=== PATIENT | female | born 1940 ===

== ENCOUNTER 2016-10-15 21:05 | Emergency (ER) | payer MEDICARE, OTHER ==
[2016-10-15 21:16] VITALS: BMI 24.0
[2016-10-15 21:19] VITALS: TEMP 97.8
[2016-10-15] MEDS ORDERED: Sodium Chloride 0.9% 1,000 ML IV STA (21:19)
[2016-10-15] MEDS ORDERED: diaZEpam 10 mg/2 ml Inj IVP ONE (21:20)
[2016-10-15] MEDS ORDERED: diaZEpam 10 mg/2 ml Inj ONE (21:39)
--- NOTE | 2016-10-15 22:02 | CT ---
EXAM: CT Head Without Intravenous Contrast. CLINICAL HISTORY: 76 years old, female; Pain; Headache; Other: AMS n /v blurred vision; Patient HX: [place]'s AMS n /v blurred vision TECHNIQUE: Axial computed tomography images of the head/brain without intravenous contrast. This CT exam was performed using one or more of the following dose reduction techniques: automated exposure control, adjustment of the mA and/or kV according to patient size, and/or use of iterative reconstruction technique. COMPARISON: CT - HEAD W/O CONTRAST 05/20/2015 12:40:49 PM FINDINGS: Limitations: Suboptimal positioning. Brain: [id number] atrophy. No intracranial hemorrhage. No mass. Few scattered foci of decreased attenuation within periventricular/subcortical white matter. Chronic lacunar infarct within LEFT basal ganglia, cerebellum. No definite edema. Ventricles: No hydrocephalus. Bones/joints: No acute fracture. Soft tissues: Unremarkable. Vasculature: Atherosclerotic disease of intracranial arteries. Sinuses: Scattered minimal mucosal thickening of ethmoid sinuses. Mastoid air cells: No mastoid effusion. Orbits: Unremarkable as visualized. IMPRESSION: 1. Nonspecific white matter changes. Acute infarction may be CT occult within first 24 hours. If a focal deficit persists, consider followup CT or MRI for further evaluation. 2. Incidental/non-acute findings are described above.
--- NOTE | 2016-10-15 22:15 | ED PDOC ---
HPI: Headache Time Seen by Provider: 10/15/16 21:06 Chief Complaint (Nursing): Weakness/Neurological Deficit Chief Complaint (Provider): headache History Per: Patient History/Exam Limitations: no limitations Onset/Duration Of Symptoms: Hrs (7x prior to arrival) Current Symptoms Are (Timing): Still Present Severity: Moderate Associated Symptoms: Nausea, Vomiting (1x), Other (visual disturbance) Additional Complaint(s): 76 year old female with a pertinent medical history of hypertension, hyperthyroidism, TIAs, and chronic back pain presents to the ED with complaints of right sided headache with associated symptoms of neck pain, dizziness, nausea , and vomiting 1x that started 7x hours ago. She reports that her symptoms partially resolved an hour after they started, but began to escalate an hour prior to arrival. She reports having a history of similar episodes, the last time being 1x month ago (provoked by back pain) where she got an extensive workup in the ED. She denies having shortness of breath, chest pain, and a fever. PMD: Davis Rodarte MD Past Medical History Reviewed: Historical Data, Nursing Documentation, Vital Signs Vital Signs: Last Vital Signs Temp 97.8 F 10/15/16 21:14 Pulse 80 10/15/16 21:14 Resp 16 10/15/16 21:14 BP 174/76 H 10/15/16 21:14 Pulse Ox 100 10/15/16 21:14 - Medical History PMH: Back Problems, Bronchitis, HTN, Hypercholesterolemia, Hypothyroidism, TIA Denies: HIV, Chronic Kidney Disease - Surgical History Surgical History: Appendectomy - Family History Family History: States: Unknown Family Hx - Social History Alcohol: None Drugs: Denies - Immunization History Hx Tetanus Toxoid Vaccination: No Hx Influenza Vaccination: No - Home Medications Home Medications: Ambulatory Orders Medication Instructions Recorded Levothyroxine Sodium [Synthroid] 0.075 mg PO DAILY 05/25/14 Losartan [Cozaar] 50 mg PO DAILY 05/25/14 Promethazine Hydrochloride 10 ml PO Q6H PRN 05/20/15 [Phenergan] Cyclobenzaprine [Cyclobenzaprine 10 mg PO HS PRN #5 tab 09/21/16 HCl] Naproxen [Naprosyn Tab] 375 mg PO Q12 PRN #14 tab 09/21/16 Ondansetron ODT [Zofran ODT] 4 mg PO Q6 PRN #16 odt 10/16/16 - Allergies Allergies/Adverse Reactions: Allergies Allergy/AdvReac Type Severity Reaction Status Date / Time codeine Allergy DIZZINESS Verified 09/21/16 19:36 fentanyl Allergy DIZZINESS Verified 09/21/16 19:36 morphine Allergy DIZZINESS Verified 09/21/16 19:36 moxifloxacin HCl Allergy RASH Verified 09/21/16 19:36 [From Avelox] shellfish derived Allergy ANAPHYLAXIS Verified 09/21/16 19:36 tramadol HCl [From Ultram] Allergy DIZZINESS Verified 09/21/16 19:36 Review of Systems ROS Statement: Except As Marked, All Systems Reviewed And Found Negative Constitutional: Negative for: Fever Eyes: Positive for: Vision Change (visual disturbance) Cardiovascular: Negative for: Chest Pain Respiratory: Negative for: Shortness of Breath Gastrointestinal: Positive for: Nausea, Vomiting Musculoskeletal: Positive for: Neck Pain Neurological: Positive for: Headache (right side), Dizziness Physical Exam - Reviewed Nursing Documentation Reviewed: Yes Vital Signs Reviewed: Yes - Physical Exam Appears: Positive for: Well, Non-toxic, Uncomfortable Head Exam: Positive for: ATRAUMATIC, NORMOCEPHALIC Skin: Positive for: Normal Color, Warm, Dry Neck: Positive for: Normal, Painless ROM Cardiovascular/Chest: Positive for: Regular Rate, Rhythm, Chest Non Tender Respiratory: Positive for: Normal Breath Sounds. Negative for: Respiratory Distress Extremity: Positive for: Normal ROM Neurologic/Psych: Positive for: Alert, Oriented (3x). Negative for: Motor/ Sensory Deficits - Laboratory Results Result Diagrams: 10/15/16 22:01 10/15/16 22:01 - ECG O2 Sat by Pulse Oximetry: 100 (RA) Pulse Ox Interpretation: Normal Medical Decision Making Medical Decision Makin:06 Initial impression: 76 year old female has an acute headache with neck pain, nausea, and vomiting. Initial plan: * CT head w/o contrast * EKG * Xray portable chest * CMP * troponin I * udip * CBC * PTT * prothrombin time * sodium chloride 1,000ml IV 100mls/hr * Reglan 10mg IVPB * Toradol 10mg IV * Valium 5mg IVP * accucheck * urinalysis * reevaluation Labs reviewed show no clinically significant abnormalities CT Head NAD Patient reports complated resolution of her symptoms and is stable for dc home Dx Tension Headache/Migraine RX Zofran, FU PCP 2 days Return advised for any worsening. Scribe Attestation: Documented by Carmen Jim, acting as a scribe for Akash Fernandez MD. Provider Scribe Attestation: All medical record entries made by the Scribe were at my direction and personally dictated by me. I have reviewed the chart and agree that the record accurately reflects my personal performance of the history, physical exam, medical decision making, and the department course for this patient. I have also personally directed, reviewed, and agree with the discharge instructions and disposition. Disposition - Clinical Impression Clinical Impression: Tension headache - Patient ED Disposition Is Patient to be Admitted: No Counseled Patient/Family Regarding: Studies Performed, Diagnosis, Need For Followup, Rx Given - Disposition Disposition: Routine/Home Disposition Time: 01:00 Condition: STABLE Prescriptions: Ondansetron ODT [Zofran ODT] 4 mg PO Q6 PRN #16 odt PRN Reason: Nausea/Vomiting Instructions: Tension Headache (ED) Print Language: YORUBA
[2016-10-15 22:30] LABS: BASO % 0.5 % (0.0-2.0); EOS % 0.6 % (0.0-4.0); HEMATOCRIT 36.8 % (34.0-47.0); LYMPH # 1.5 K/uL (1.0-4.3); LYMPH % 20.1 % (20.0-40.0); MEAN CELL VOLUME 83.5 fl (81.0-99.0); MEAN CORPUSCULAR HEMOGLOBIN 28.2 pg (27.0-31.0); MEAN CORPUSCULAR HGB CONC 33.8 g/dL (33.0-37.0); MEAN PLATELET VOLUME 8.3 fl (7.2-11.7); MONO # 0.6 K/uL (0.0-0.8); MONO % 7.8 % (0.0-10.0); NEUT # 5.3 K/uL (1.8-7.0); RED CELL DISTRIBUTION WIDTH 14.2 % (11.5-14.5); WHITE BLOOD COUNT 7.5 K/uL (4.8-10.8)
[2016-10-15 22:42] LABS: ALB/GLOB RATIO 1.3 (1.0-2.1); ALKALINE PHOSPHATASE 97 U/L (38-126); ALT/SGPT 47 U/L (9-52); AST/SGOT 51 U/L (14-36); BILIRUBIN,TOTAL 0.6 mg/dl (0.2-1.3); BLOOD UREA NITROGEN 17 mg/dl (7-17); CALCIUM 9.6 mg/dL (8.4-10.2); CARBON DIOXIDE 23 mmol/L (22-30); CHLORIDE 95 mmol/L (98-107); GFR AFRICAN-AMERICAN > 60; GLUCOSE,RANDOM 138 mg/dL (65-105); POTASSIUM 3.5 MMOL/L (3.6-5.0); SODIUM 130 mmol/l (132-148); TOTAL PROTEIN 7.7 G/DL (6.3-8.2)
[2016-10-15 23:51] LABS: PARTIAL THROMBOPLASTIN TIME 25.2 SECONDS (23.3-32.5)
[2016-10-16 02:13] VITALS: BP 133/73; PULSE 73; RESP 20
[2016-10-16 02:56] LABS: RBC URINE 1 /hpf (0-3); URINE BACTERIA RARE (<OCC); URINE BILIRUBIN NEGATIVE (NEGATIVE); URINE BLOOD NEGATIVE (NEGATIVE); URINE COLOR YELLOW (YELLOW); URINE GLUCOSE (UA) NEG (Normal); URINE KETONE NEGATIVE (NEGATIVE); URINE LEUKOCYTE ESTERASE NEG Leu/uL (Negative); URINE PROTEIN NEGATIVE (NEGATIVE); URINE UROBILINOGEN 0.2-1.0 mg/dL (0.2-1.0); WBC URINE 1 /hpf (0-5)
--- NOTE | 2016-10-16 08:17 | RAD ---
HISTORY: admit COMPARISON: No prior. FINDINGS: LUNGS: No active pulmonary disease. PLEURA: No significant pleural effusion identified, no pneumothorax apparent. CARDIOVASCULAR: Normal. OSSEOUS STRUCTURES: No significant abnormalities. VISUALIZED UPPER ABDOMEN: Normal. OTHER FINDINGS: None. IMPRESSION: Unremarkable one view exam of the chest.
[2016-10-17 02:18] VITALS: O2SAT 100
--- NOTE | 2016-10-17 09:42 | CARD ---
APPROVED REPORT EKG Measurement Heart [id number] <Conclusion> Normal sinus rhythm Possible Left atrial enlargement Borderline ECG
== END 2016-10-16 02:43 | disposition home or self-care (01) ==
LOC: H.ER 21:05
DX: G44.209 Tension-type headache, unspecified, not intractable (principal); I10 Essential (primary) hypertension; Z86.73 Personal history of transient ischemic attack (TIA), and cerebral infarction without residual deficits
CPT/HCPCS: 70450; 71010; 80053; 81003; 82948; 84484; 85025; 85610; 85730; 93005; 96361; 96374; 96375; 99285; J1885; J2765; J3360; J7040

== ENCOUNTER 2017-07-12 18:16 | Inpatient (IN) | payer MEDICARE, OTHER ==
[2017-07-12 18:16] VITALS: BMI 24.0
--- NOTE | 2017-07-12 19:00 | CT ---
PROCEDURE: CT HEAD WITHOUT CONTRAST. HISTORY: code stroke COMPARISON: 10/15/2016. TECHNIQUE: Axial computed tomography images were obtained through the head/brain without intravenous contrast. Coronal and sagittal reconstructed images. Radiation dose: Total exam DLP = 975.72 mGy-cm. This CT exam was performed using one or more of the following dose reduction techniques: Automated exposure control, adjustment of the mA and/or kV according to patient size, and/or use of iterative reconstruction technique. FINDINGS: HEMORRHAGE: No intracranial hemorrhage. BRAIN: No mass effect or edema. No atrophy or chronic microvascular ischemic changes. VENTRICLES: Unremarkable. No hydrocephalus. CALVARIUM: Unremarkable. PARANASAL SINUSES: Unremarkable as visualized. No significant inflammatory changes. MASTOID AIR CELLS: Unremarkable as visualized. No inflammatory changes. OTHER FINDINGS: None. IMPRESSION: No acute intracranial abnormalities. No significant findings to account for the clinical presentation. No significant interval change compared to the prior examination(s). Code stroke protocol: Study completed 18:35 Radiologist notified 18:43 although the study was not available for interpretation until 18:49 Results conveyed verbally at 18:57 Interpretation finalized and available for review 18:59
[2017-07-12 19:13] LABS: BASO % 0.5 % (0.0-2.0); EOS # 0.1 K/uL (0.0-0.7); EOS % 0.7 % (0.0-4.0); HEMATOCRIT 37.7 % (34.0-47.0); LYMPH # 1.2 K/uL (1.0-4.3); LYMPH % 13.3 % (20.0-40.0); MEAN CELL VOLUME 84.9 fl (81.0-99.0); MEAN CORPUSCULAR HEMOGLOBIN 28.2 pg (27.0-31.0); MEAN CORPUSCULAR HGB CONC 33.2 g/dL (33.0-37.0); MEAN PLATELET VOLUME 8.6 fl (7.2-11.7); MONO # 0.4 K/uL (0.0-0.8); MONO % 4.8 % (0.0-10.0); NEUT # 7.4 K/uL (1.8-7.0); NEUT % 80.7 % (50.0-75.0); RED CELL DISTRIBUTION WIDTH 13.5 % (11.5-14.5); WHITE BLOOD COUNT 9.1 K/uL (4.8-10.8)
[2017-07-12] MEDS ORDERED: Sodium Chloride 0.9% 500 ML IV STA (19:35)
[2017-07-12 19:37] LABS: PARTIAL THROMBOPLASTIN TIME 30.1 Seconds (25.6-37.1)
[2017-07-12 19:39] LABS: ALB/GLOB RATIO 1.4 (1.0-2.1); ALCOHOL SERUM < 10 mg/dl (0-10); ALKALINE PHOSPHATASE 82 U/L (38-126); ALT/SGPT 52 U/L (9-52); AST/SGOT 45 U/L (14-36); BILIRUBIN,TOTAL 0.6 mg/dl (0.2-1.3); BLOOD UREA NITROGEN 19 mg/dl (7-17); CALCIUM 9.2 mg/dL (8.4-10.2); CARBON DIOXIDE 23 mmol/L (22-30); CHLORIDE 101 mmol/L (98-107); CHOLESTEROL 229 mg/dL (0-199); GFR AFRICAN-AMERICAN > 60; GLUCOSE,RANDOM 154 mg/dL (65-105); LIPASE 147 U/L (23-300); MAGNESIUM 2.1 MG/DL (1.6-2.3); PHOSPHOROUS 2.2 mg/dl (2.5-4.5); POTASSIUM 3.7 MMOL/L (3.6-5.0); SODIUM 138 mmol/l (132-148); TOTAL PROTEIN 7.6 G/DL (6.3-8.2)
[2017-07-12 19:39] LABS: VENOUS BLOOD GAS BASE EXCESS 4.5 mmol/L (0.0-2.0); VENOUS BLOOD GAS PCO2 28 mmHg (40-60); VENOUS BLOOD PH 7.57 (7.32-7.43)
[2017-07-12] MEDS ORDERED: Sodium Chloride 0.9% 1,000 ML IV STA (19:40)
[2017-07-12] MEDS ORDERED: Potassium & Sodium Phosphate PO STA (19:41)
--- NOTE | 2017-07-12 19:41 | ED PDOC ---
"HPI:STROKE - Time Time: 18:25 - Historian Historian: Family - Chief Complaint Chief Complaint: Weakness, Arm weakness, Leg weakness, Difficulty walking - Onset Onset: Hours (2pm) - Timing Timing: Currently Symptomatic - TPA Positive for Contraindication: No - Notes: Notes:: Pt is poor historian, reports that she is too weak. Daughter reports that when she arrived home today she found her mother in bed and unable to get up. Patient reports that her back hurts on the RIGHT side and that all her extremities are weak and numb. This may have started around 2pm but patient unable to give exact timing. She also reports that at about the same time, she had severe abdominal pain but unable to localize it. En route to ER on ambulance, pt had an episode of vomiting nonbilious nonbloody. h/o TIAs for which Dr Nunez has been evaluating patient. Episodes of blurry vision of RIGHT visual osborn, intermittent and lasts minutes, has been ongoing for months. Plan to undergo possible EEG July (Dr Nunez, who is available on phone, but not for inpatient consult, reports he plans for pt to have ambulatory EEG. Also advises that CTA can be performed if concern for CVA) PMD Dr Mario Crop Or Grain Farmworker Dr Oconnell NIHSS Stroke Scale - Date/Time Evaluation Performed Date Performed: 07/12/17 Time Performed: 18:20 When Was NIHSS Performed: Baseline - How Severe is the Stroke Level of Consciousness: 0=Alert LOC to Questions: 0=Both comments correct LOC to commands: 0=Obeys both correctly Best Gaze: 0=Normal Visual: 0=No visual loss Facial: 0=Normal Motor Arm - Left: 4=No movement Motor Arm - Right: 3=No effort against gravity (falls immediately) Motor Leg - Left: 3=No effort against gravity (falls immediately) Motor Leg - Right: 3=No effort against gravity (falls immediately) Limb Ataxia: 0=Absent Sensory: 0=Normal Best Language: 0=No aphasia Dysarthia: 0=Normal articulation Extinction & Inattention (Neglect): 0=Normal, no object Score: 13 rTPA Inclusion/Exclusion - Refusal of Treatment Patient Refused Treatment: No - Inclusion Criteria for Altepase Patient is 18 years or Older: Yes The Clinical Diagnosis of Ischemic Stroke That is Causing a Potentially Disabling Neurological Deficit: Yes Time of Onset is Well Established to be Less Than 270 Minute Before Treatment Would Begin: No Risk/Benefit Discussed With Patient/Family Member Present: No - Exclusion Criteria for Altepase Uncontrolled Hypertension at Time of Treatment (Systolic BP above 185 or Diastolic BP above 110 mmHg): No - Warning to TPA With Conditions Condition: Age Greater Than 75 years Past Medical History Reviewed: Historical Data, Nursing Documentation, Vital Signs Vital Signs: Last Vital Signs Temp 95.0 F L 07/12/17 18:21 Pulse 78 07/12/17 18:21 Resp 16 07/12/17 18:21 BP 141/73 07/12/17 18:21 Pulse Ox 99 07/12/17 18:21 - Medical History PMH: Back Problems, Bronchitis, HTN, Hypercholesterolemia, Hypothyroidism, TIA Denies: HIV, Chronic Kidney Disease - Surgical History Surgical History: Appendectomy - Family History Family History: States: Unknown Family Hx - Social History Current smoker - smoking cessation education provided: No - Immunization History Hx Tetanus Toxoid Vaccination: No Hx Influenza Vaccination: No - Home Medications Home Medications: Ambulatory Orders Medication Instructions Recorded Aspirin [Ecotrin] 81 mg PO DAILY 07/12/17 Levothyroxine [Synthroid] 75 mcg PO DAILY 07/12/17 Metoprolol Succinate [Toprol XL] 25 mg PO QPM 07/12/17 Zolpidem [Ambien] 10 mg PO HS PRN 07/12/17 cycloSPORINE [Restasis] 1 drop EACHEYE Q12H 07/12/17 Acetaminophen [Tylenol 325mg tab] 650 mg PO Q6 PRN tab 07/15/17 Aspirin [Ecotrin] 81 mg PO DAILY tabec 07/15/17 cycloSPORINE [Restasis] 1 drop EACHEYE Q12H 07/15/17 - Allergies Allergies/Adverse Reactions: Allergies Allergy/AdvReac Type Severity Reaction Status Date / Time codeine Allergy DIZZINESS Verified 07/15/17 17:36 fentanyl Allergy DIZZINESS Verified 07/15/17 15:00 morphine Allergy DIZZINESS Verified 07/15/17 15:00 moxifloxacin HCl Allergy RASH Verified 07/15/17 15:00 [From Avelox] shellfish derived Allergy ANAPHYLAXIS Verified 07/15/17 15:00 tramadol HCl [From Ultram] Allergy DIZZINESS Verified 07/15/17 15:00 Review of Systems ROS Statement: Except As Marked, All Systems Reviewed And Found Negative (and as per HPI) Constitutional: Positive for: Weakness, Malaise Gastrointestinal: Positive for: Nausea, Vomiting, Abdominal Pain Musculoskeletal: Positive for: Back Pain Neurological: Positive for: Weakness, Numbness Physical Exam - Reviewed Nursing Documentation Reviewed: Yes Vital Signs Reviewed: Yes - Physical Exam Appears: Positive for: In Acute Distress Head Exam: Positive for: ATRAUMATIC, NORMOCEPHALIC Skin: Positive for: Warm, Dry Eye Exam: Positive for: EOMI, PERRL ENT: Positive for: Other (dry mucus membranes) Neck: Positive for: Pain On Movement Of Neck (RIGHT paraspinal ttp, pt with preference to turn head LEFT, reports secondary to pain along RIGHT side) Cardiovascular/Chest: Positive for: Regular Rate, Rhythm, Chest Non Tender. Negative for: Murmur Respiratory: Positive for: Normal Breath Sounds. Negative for: Respiratory Distress Gastrointestinal/Abdominal: Positive for: Soft, Tenderness (diffuse mild). Negative for: Mass, Distended, Guarding, Rebound Back: Positive for: Other (RIGHT thoracic paraspinal ttp) Extremity: Negative for: Pedal Edema, Deformity, Swelling Lymphatic: Negative for: Adenopathy Neurologic/Psych: Positive for: Oriented (x3), Mood/Affect (anxious), Other (pt with 2/5 strength in all extremities) - Laboratory Results Result Diagrams: 07/13/17 04:40 07/13/17 04:30 - ECG O2 Sat by Pulse Oximetry: 99 Pulse Ox Interpretation: Normal - Progress ED Course And Treament: Accession No. : [id number] Patient Name / ID : OBDULIO BROWN / [id number] Exam Date : 07/12/2017 18:34:19 ( Approved ) Study Comment : Sex / Age : F / 76Y Creator : Jose F Dejesus MD Dictator : Jose F Dejesus MD Programmer Or Analyst : Piano Bench Assembler : Jose F Dejesus MD Approver2 : Report Date : 07/12/2017 18:58:22 My Comment : PROCEDURE: CT HEAD WITHOUT CONTRAST. HISTORY: code stroke COMPARISON: 10/15/2016. TECHNIQUE: Axial computed tomography images were obtained through the head/brain without intravenous contrast. Coronal and sagittal reconstructed images. Radiation dose: Total exam DLP = 975.72 mGy-cm. This CT exam was performed using one or more of the following dose reduction techniques: Automated exposure control, adjustment of the mA and/or kV according to patient size, and/or use of iterative reconstruction technique. FINDINGS: HEMORRHAGE: No intracranial hemorrhage. BRAIN: No mass effect or edema. No atrophy or chronic microvascular ischemic changes. VENTRICLES: Unremarkable. No hydrocephalus. CALVARIUM: Unremarkable. PARANASAL SINUSES: Unremarkable as visualized. No significant inflammatory changes. MASTOID AIR CELLS: Unremarkable as visualized. No inflammatory changes. OTHER FINDINGS: None. IMPRESSION: No acute intracranial abnormalities. No significant findings to account for the clinical presentation. No significant interval change compared to the prior examination(s). Code stroke protocol: Study completed 18:35 Radiologist notified 18:43 although the study was not available for interpretation until 18:49 Results conveyed verbally at 18:57 Interpretation finalized and available for review 18:59 2000 Pt reporting more muscle spasm RIGHT side of neck/back. Valium ordered. Labs also demonstrated hypokalemia and hypophosphatemia, ordered supplementation 2100 Pt refusing to take PO meds IV ativan and IV toradol ordered. Still continues to report all extremities are weak. EXAM: CT Abdomen and Pelvis With Intravenous Contrast EXAM DATE/TIME: 07/12/2017 7:20 PM CLINICAL HISTORY: 76 years old, female; Pain; Abdominal pain; Generalized; Additional info: Abd pain TECHNIQUE: Axial computed tomography images of the abdomen and pelvis with intravenous contrast. All CT scans at this facility use one or more dose reduction techniques, viz.: automated exposure control; ma/kV adjustment per patient size (including targeted exams where dose is matched to indication; i.e. head); or iterative reconstruction technique. Coronal and sagittal reformatted images were created and reviewed. CONTRAST: 50 mL of [id number] administered intravenously. COMPARISON: CT - ABD PELVIS PO IV CONTRAST 05/20/15 FINDINGS: Lower thorax: Heart size is normal. There is atelectasis and scarring at the lung bases. There is a hiatal hernia. ABDOMEN: Liver: There is fatty infiltration of the liver. Gallbladder and bile ducts: Gallbladder is distended with multiple calcified stones. There is prominence of the common duct. Pancreas: Pancreas is mildly atrophic. Spleen: unremarkable Adrenals: unremarkable Kidneys and ureters: There are bilateral low-attenuation renal lesions. Largest are consistent with cysts. Smaller lesions are too small to characterize.There is no pelvocaliectasis or ureterectasis. Stomach and bowel: Stomach is incompletely distended. Rotation is normal. Small bowel is mildly distended with air. There is air throughout the small bowel. Distention decreases distally. Terminal ileum is unremarkable. There are multiple clips at the base of the cecum. There is moderate stool in the colon. There is diverticulosis. STEPHANIE MAK | Final Radiology Report CONFIDENTIALITY STATEMENT This report is intended only for use by the referring physician, and only in accordance with law. If you received this in error, call [phone]. Page 2 of 2 Appendix: Appendectomy PELVIS: Bladder: Bladder is distended. The bladder is approximately at the level of the umbilicus. Reproductive: Uterus is mildly prominent for age. There is a 2.4 x 3.6 cm enhancing uterine mass. There is mild prominence of the endometrium. Adnexa are unremarkable. ABDOMEN and PELVIS: Intraperitoneal space: There is no free air. There is no free fluid. Bones/joints: Bony structures are osteopenic with degenerative change. Soft tissues: There is a small fat containing umbilical hernia. Vasculature: There are calcified phleboliths. There are vascular calcifications. Lymph nodes: There is no pathologic adenopathy. IMPRESSION: Fatty liver, no acute solid visceral abnormality; gallstones with prominent common duct; distended bladder, no hydronephrosis; enhancing uterine mass possibly fibroid and mild prominence of the endometrium, similar finding seen on prior study; no bowel obstruction; prior appendectomy; possible constipation, diverticulosis without CT findings of diverticulitis Additional findings as described above. Thank you for allowing us to participate in the care of your patient. Dictated and Authenticated by: Juana Alcala MD 07/12/2017 11:28 PM Eastern Time ([place] & [place]) EXAM: CT Angiography Head With Intravenous Contrast CLINICAL HISTORY: 76 years old, female; Signs and symptoms; Weakness; Additional info: Left sided weakness TECHNIQUE: Axial computed tomographic angiography images of the head with intravenous contrast using CT angiography protocol. All CT scans at this facility use one or more dose reduction techniques, viz.: automated exposure control; ma/kV adjustment per patient size (including targeted exams where dose is matched to indication; i.e. head); or iterative reconstruction technique. MIP reconstructed images were created and reviewed. Coronal and sagittal reformatted images were created and reviewed. CONTRAST: 75 mL of [id number] administered intravenously. COMPARISON: No relevant prior studies available. FINDINGS: The distal most aspect of the left vertebral artery appears slightly dominant with respect to the right. The basilar artery is patent. The P1 segment of the right posterior cerebral artery is atrophic. The P2 segment of the right cerebral artery is patent being supplied through the communicating artery. The left posterior cerebral artery is patent. There are bulky circumferential peripheral calcifications in the internal carotid arteries most notably in the region of the cavernous sinus more severe on the right. There appears to be intraluminal contrast opacification central to the calcifications (no occlusion). Please note there are no 3-D reconstructions provided. The middle cerebral arteries are patent. The right anterior communicating artery is patent. The A1 segment of the left anterior communicating artery is hypotrophic. The A2 segment of the left anterior cerebral artery is patent. IMPRESSION: Extensive calcification in the internal carotid arteries as above. Congenital atrophic/hypotrophic segments as discussed above. EXAM: CT Angiography Neck With Intravenous Contrast EXAM DATE/TIME: 07/12/2017 7:20 PM CLINICAL HISTORY: 76 years old, female; Signs and symptoms; Weakness; Additional info: Left sided weakness TECHNIQUE: Axial computed tomographic angiography images of the neck with intravenous contrast using CT angiography protocol. All CT scans at this facility use one or more dose reduction techniques, viz.: automated exposure control; ma/kV adjustment per patient size (including targeted exams where dose is matched to indication; i.e. head); or iterative reconstruction technique. MIP reconstructed images were created and reviewed. Coronal and sagittal reformatted images were created and reviewed. CONTRAST: 75 mL of [id number] administered intravenously. COMPARISON: CT - HEAD W/O (CODE STROKE) 2017-07-12 18:34 FINDINGS: There are calcifications in the very distal vertebral arteries bilaterally at the level of the occipital condyles (axial images 112 through 115). The calcifications result in small focal stenosis (severe on the right, moderate on the left), however the vertebral arteries are well perfused distally. The basilar artery is patent. Calcifications are present at the bifurcations of the common carotid arteries bilaterally without significant stenosis or occlusion. The cervical portions of the internal carotid arteries are patent. No vascular dissections are identified. IMPRESSION: Calcifications in the very distal vertebral arteries resulting in focal stenosis , however the vessels are well perfused distally. Calcifications at the carotid bifurcations without significant stenosis or occlusion. Thank you for allowing us to participate in the care of your patient. Dictated and Authenticated by: Natasha Quintana MD 07/12/2017 11:50 PM Eastern Time ([place] & [place]) - Critical Care Total Time (In Min): 30 Documented Critical Care: Time excludes all time spent performint seperately billable procedures Disposition - Clinical Impression Clinical Impression: Weakness, Abdominal pain Discussed With : Wolf Mario Comment: Requests Dr Aguirre for Neuro consult Counseled Patient/Family Regarding: Studies Performed, Diagnosis - Disposition Disposition Time: 20:30 Condition: GUARDED"
[2017-07-12] MEDS ORDERED: Potassium CL 10 MEQ/50 ML 50 ML IVPB ONE (20:49)
[2017-07-12] MEDS ORDERED: Iodixanol 320 MG/ML 100 ML BOTTLE IV ONE (21:12)
[2017-07-12] MEDS ORDERED: Iodixanol 320 mg/ml 50 ml Sol IV ONE (21:13)
--- NOTE | 2017-07-12 23:29 | CT ---
EXAM: CT Abdomen and Pelvis With Intravenous Contrast EXAM DATE/TIME: 07/12/2017 7:20 PM CLINICAL HISTORY: 76 years old, female; Pain; Abdominal pain; Generalized; Additional info: Abd pain TECHNIQUE: Axial computed tomography images of the abdomen and pelvis with intravenous contrast. All CT scans at this facility use one or more dose reduction techniques, viz.: automated exposure control; ma/kV adjustment per patient size (including targeted exams where dose is matched to indication; i.e. head); or iterative reconstruction technique. Coronal and sagittal reformatted images were created and reviewed. CONTRAST: 50 mL of [id number] administered intravenously. COMPARISON: CT - ABD PELVIS PO IV CONTRAST 05/20/15 FINDINGS: Lower thorax: Heart size is normal. There is atelectasis and scarring at the lung bases. There is a hiatal hernia. ABDOMEN: Liver: There is fatty infiltration of the liver. Gallbladder and bile ducts: Gallbladder is distended with multiple calcified stones. There is prominence of the common duct. Pancreas: Pancreas is mildly atrophic. Spleen: unremarkable Adrenals: unremarkable Kidneys and ureters: There are bilateral low-attenuation renal lesions. Largest are consistent with cysts. Smaller lesions are too small to characterize.There is no pelvocaliectasis or ureterectasis. Stomach and bowel: Stomach is incompletely distended. Rotation is normal. Small bowel is mildly distended with air. There is air throughout the small bowel. Distention decreases distally. Terminal ileum is unremarkable. There are multiple clips at the base of the cecum. There is moderate stool in the colon. There is diverticulosis. Appendix: Appendectomy PELVIS: Bladder: Bladder is distended. The bladder is approximately at the level of the umbilicus. Reproductive: Uterus is mildly prominent for age. There is a 2.4 x 3.6 cm enhancing uterine mass. There is mild prominence of the endometrium. Adnexa are unremarkable. ABDOMEN and PELVIS: Intraperitoneal space: There is no free air. There is no free fluid. Bones/joints: Bony structures are osteopenic with degenerative change. Soft tissues: There is a small fat containing umbilical hernia. Vasculature: There are calcified phleboliths. There are vascular calcifications. Lymph nodes: There is no pathologic adenopathy. IMPRESSION: Fatty liver, no acute solid visceral abnormality; gallstones with prominent common duct; distended bladder, no hydronephrosis; enhancing uterine mass possibly fibroid and mild prominence of the endometrium, similar finding seen on prior study; no bowel obstruction; prior appendectomy; possible constipation, diverticulosis without CT findings of diverticulitis Additional findings as described above.
[2017-07-12] MEDS ORDERED: Patient's Own Med (Cyclosporine [Restasis] 1 DROP) EACHEYE SCH (23:45)
--- NOTE | 2017-07-12 23:50 | CT ---
EXAM: CT Angiography Head With Intravenous Contrast CLINICAL HISTORY: 76 years old, female; Signs and symptoms; Weakness; Additional info: Left sided weakness TECHNIQUE: Axial computed tomographic angiography images of the head with intravenous contrast using CT angiography protocol. All CT scans at this facility use one or more dose reduction techniques, viz.: automated exposure control; ma/kV adjustment per patient size (including targeted exams where dose is matched to indication; i.e. head); or iterative reconstruction technique. MIP reconstructed images were created and reviewed. Coronal and sagittal reformatted images were created and reviewed. CONTRAST: 75 mL of [id number] administered intravenously. COMPARISON: No relevant prior studies available. FINDINGS: The distal most aspect of the left vertebral artery appears slightly dominant with respect to the right. The basilar artery is patent. The P1 segment of the right posterior cerebral artery is atrophic. The P2 segment of the right cerebral artery is patent being supplied through the communicating artery. The left posterior cerebral artery is patent. There are bulky circumferential peripheral calcifications in the internal carotid arteries most notably in the region of the cavernous sinus more severe on the right. There appears to be intraluminal contrast opacification central to the calcifications (no occlusion). Please note there are no 3-D reconstructions provided. The middle cerebral arteries are patent. The right anterior communicating artery is patent. The A1 segment of the left anterior communicating artery is hypotrophic. The A2 segment of the left anterior cerebral artery is patent. IMPRESSION: Extensive calcification in the internal carotid arteries as above. Congenital atrophic/hypotrophic segments as discussed above. EXAM: CT Angiography Neck With Intravenous Contrast EXAM DATE/TIME: 07/12/2017 7:20 PM CLINICAL HISTORY: 76 years old, female; Signs and symptoms; Weakness; Additional info: Left sided weakness TECHNIQUE: Axial computed tomographic angiography images of the neck with intravenous contrast using CT angiography protocol. All CT scans at this facility use one or more dose reduction techniques, viz.: automated exposure control; ma/kV adjustment per patient size (including targeted exams where dose is matched to indication; i.e. head); or iterative reconstruction technique. MIP reconstructed images were created and reviewed. Coronal and sagittal reformatted images were created and reviewed. CONTRAST: 75 mL of [id number] administered intravenously. COMPARISON: CT - HEAD W/O (CODE STROKE) 2017-07-12 18:34 FINDINGS: There are calcifications in the very distal vertebral arteries bilaterally at the level of the occipital condyles (axial images 112 through 115). The calcifications result in small focal stenosis (severe on the right, moderate on the left), however the vertebral arteries are well perfused distally. The basilar artery is patent. Calcifications are present at the bifurcations of the common carotid arteries bilaterally without significant stenosis or occlusion. The cervical portions of the internal carotid arteries are patent. No vascular dissections are identified. IMPRESSION: Calcifications in the very distal vertebral arteries resulting in focal stenosis, however the vessels are well perfused distally. Calcifications at the carotid bifurcations without significant stenosis or occlusion.
--- NOTE | 2017-07-13 00:26 | CP.PCM.CON ---
History of Present Illness - History of Present Illness History of Present Illness: HPI:STROKE - Chief Complaint Chief Complaint: Weakness, Arm weakness, Leg weakness, Difficulty walking - Onset Onset: Hours (2pm) - Timing Timing: Currently Symptomatic - TPA Positive for Contraindication: No No H/O significant Trauma. - Notes: Notes:: Patient was a poor historian, reports that she is too weak when she came to the E.R. Daughter reports that when she arrived home today she found her mother in bed and unable to get up. Patient reports that her back hurts on the RIGHT side and that all her extremities are weak and numb. This may have started around 2pm but patient unable to give exact timing. She also reports that at about the same time, she had severe abdominal pain but unable to localize it. En route to ER on ambulance, patient had an episode of vomiting non bilious non bloody. Currently she regained her power after few hours of generalized weakness and paralysis of her 4 Extremities. Low K and Mg in the E.R, she received replacement. Yesterday and Today it is cold and the Temperature is about 25 to 30 degrees Fahrenheit. h/o TIAs for which Dr Nunez has been evaluating patient. Episodes of blurry vision of RIGHT visual osborn, intermittent and lasts minutes, has been ongoing for months. Plan to undergo possible EEG July (Dr Nunez, who is available on phone, but not for inpatient consult, reports he plans for patient to have ambulatory EEG. Also advises that CTA can be performed if concern for CVA). Her vision manifestations disappeared after her bilateral cataract surgery. History of Disc Herniation in the LS area and mid Thoracic Pain. She is reported to be Mentally Sharp, walking normally, very active, careful about her diet, avoiding salt and fried food and cooking healthy by herself. She lives with her daughter Kim Anderson, who works in a medical insurance company. PMD Dr Mario Physical Chemistry Professor Dr Oconnell NIHSS Stroke Scale - Date/Time Evaluation Performed Date Performed: 07/12/17 Time Performed: 18:20 When Was NIHSS Performed: Baseline - How Severe is the Stroke Level of Consciousness: 0=Alert LOC to Questions: 0=Both comments correct LOC to commands: 0=Obeys both correctly Best Gaze: 0=Normal Visual: 0=No visual loss Facial: 0=Normal Motor Arm - Left: 4=No movement Motor Arm - Right: 3=No effort against gravity (falls immediately) Motor Leg - Left: 3=No effort against gravity (falls immediately) Motor Leg - Right: 3=No effort against gravity (falls immediately) Limb Ataxia: 0=Absent Sensory: 0=Normal Best Language: 0=No aphasia Dysarthia: 0=Normal articulation Extinction & Inattention (Neglect): 0=Normal, no object Score: 13 rTPA Inclusion/Exclusion - Refusal of Treatment Patient Refused Treatment: No - Inclusion Criteria for Altepase Patient is 18 years or Older: Yes The Clinical Diagnosis of Ischemic Stroke That is Causing a Potentially Disabling Neurological Deficit: Yes Time of Onset is Well Established to be Less Than 270 Minute Before Treatment Would Begin: No Risk/Benefit Discussed With Patient/Family Member Present: No - Exclusion Criteria for Altepase Uncontrolled Hypertension at Time of Treatment (Systolic BP above 185 or Diastolic BP above 110 mmHg): No - Warning to TPA With Conditions Condition: Age Greater Than 75 years Past Medical History Reviewed: Historical Data, Nursing Documentation, Vital Signs Vital Signs: Last Vital Signs Temp 95.0 F L 07/12/17 18:21 Pulse 78 07/12/17 18:21 Resp 16 07/12/17 18:21 BP 141/73 07/12/17 18:21 Pulse Ox 99 07/12/17 18:21 - Medical History PMH: Back Problems, Bronchitis, HTN, Hypercholesterolemia, Hypothyroidism, TIA Denies: HIV, Chronic Kidney Disease - Surgical History Surgical History: Appendectomy, recent bilateral Cataract surgery. - Family History Family History: States: Hypothyroidism in her daughter - Social History Current smoker - smoking cessation education provided: No - Immunization History Hx Tetanus Toxoid Vaccination: No Hx Influenza Vaccination: No - Home Medications Home Medications: Ambulatory Orders Medication Instructions Recorded Aspirin [Ecotrin] 81 mg PO DAILY 07/12/17 Levothyroxine [Synthroid] 75 mcg PO DAILY 07/12/17 Losartan/Hydrochlorothiazide 1 tab PO DAILY 07/12/17 [Hyzaar 100-12.5 Tablet] Metoprolol Succinate [Toprol XL] 25 mg PO QPM 07/12/17 Zolpidem [Ambien] 10 mg PO HS PRN 07/12/17 cycloSPORINE [Restasis] 1 drop EACHEYE Q12H 07/12/17 Allergies Allergies/Adverse Reactions: Allergies Allergy/AdvReac Type Severity Reaction Status Date / Time codeine Allergy DIZZINESS Verified 07/12/17 18:20 fentanyl Allergy DIZZINESS Verified 07/12/17 18:20 morphine Allergy DIZZINESS Verified 07/12/17 18:20 moxifloxacin HCl Allergy RASH Verified 07/12/17 18:20 [From Avelox] shellfish derived Allergy ANAPHYLAXIS Verified 07/12/17 18:20 tramadol HCl [From Ultram] Allergy DIZZINESS Verified 07/12/17 18:20 Review of Systems ROS Statement: Except As Marked, All Systems Reviewed And Found Negative (and as per HPI) Constitutional: Positive for: Weakness, Malaise Gastrointestinal: Positive for: Nausea, Vomiting, Abdominal Pain Musculoskeletal: Positive for: Back Pain Neurological: Positive for: Weakness, Numbness Physical Exam - Reviewed Nursing Documentation Reviewed: Yes Vital Signs Reviewed: Yes - Physical Exam Appears: Positive for: In Acute Distress Head Exam: Positive for: ATRAUMATIC, NORMOCEPHALIC Skin: Positive for: Warm, Dry Eye Exam: Positive for: EOMI, PERRL ENT: Positive for: Other (dry mucus membranes) Neck: Positive for: Pain On Movement Of Neck (RIGHT paraspinal ttp, pt with preference to turn head LEFT, reports secondary to pain along RIGHT side) Cardiovascular/Chest: Positive for: Regular Rate, Rhythm, Chest Non Tender. Negative for: Murmur Respiratory: Positive for: Normal Breath Sounds. Negative for: Respiratory Distress Gastrointestinal/Abdominal: Positive for: Soft, Tenderness (diffuse mild). Negative for: Mass, Distended, Guarding, Rebound Back: Positive for: Other (RIGHT thoracic paraspinal ttp) Extremity: Negative for: Pedal Edema, Deformity, Swelling Lymphatic: Negative for: Adenopathy Neurologic/Psych: Positive for: Oriented (x3), Mood/Affect (anxious), Other (pt with 2/5 strength in all extremities) - ECG O2 Sat by Pulse Oximetry: 99 Pulse Ox Interpretation: Normal IMPRESSION of CTA Brain and Neck Bundle Vessels: _Extensive calcification in the internal carotid arteries as above. Congenital atrophic/hypotrophic segments as discussed above. _ Calcifications in the very distal vertebral arteries resulting in focal stenosis, however the vessels are well perfused distally. CTA Neck vessels with IV Contrast Impression: Calcifications at the carotid bifurcations without significant stenosis or occlusion. IMPRESSION of CT Abdomen and Pelvis: Fatty liver, no acute solid visceral abnormality; gallstones with prominent common duct; distended bladder, no hydronephrosis; enhancing uterine mass possibly fibroid and mild prominence of the endometrium, similar finding seen on prior study; no bowel obstruction; prior appendectomy; possible constipation, diverticulosis without CT findings of diverticulitis IMPRESSION of CT Brain: No acute intracranial abnormalities. No significant findings to account for the clinical presentation. No significant interval change compared to the prior examination(s). - Progress ED Course And Treament: 1999 Pt reporting more muscle spasm RIGHT side of neck/back. Valium ordered. Labs also demonstrated hypokalemia and hypophosphatemia, ordered supplementation 2099 Pt refusing to take PO meds IV ativan and IV toradol ordered. Still continues to report all extremities are weak. Disposition - Disposition Past Patient History - Past Medical History & Family History Past Medical History?: Yes - Past Social History Smoking Status: Never Smoked - CARDIAC Hx Hypercholesterolemia: Yes Hx Hypertension: Yes - PULMONARY Hx Bronchitis: Yes - NEUROLOGICAL Hx Transient Ischemic Attacks (TIA): Yes - HEENT Other/Comment: Pt reports on and off episodes of losing half her visual osborn after a TIA (loses vision on right side) - RENAL Hx Chronic Kidney Disease: No - ENDOCRINE/METABOLIC Hx Hypothyroidism: Yes - HEMATOLOGICAL/ONCOLOGICAL Hx Human Immunodeficiency Virus (HIV): No - INTEGUMENTARY Hx Dermatological Problems: No - MUSCULOSKELETAL/RHEUMATOLOGICAL Hx Back Pain: Yes - GASTROINTESTINAL Hx Gastrointestinal Disorders: No - GENITOURINARY/GYNECOLOGICAL Hx Genitourinary Disorders: No - PSYCHIATRIC Hx Psychophysiologic Disorder: No Hx Substance Use: No - SURGICAL HISTORY Hx Appendectomy: Yes - ANESTHESIA Hx Anesthesia: Yes Hx Anesthesia Reactions: No Hx Malignant Hyperthermia: No Meds Home Medications: Home Medication List Medication Instructions Recorded Confirmed Type Acetaminophen [Tylenol 325mg tab] 650 mg PO Q6 PRN tab 07/15/17 Rx Aspirin [Ecotrin] 81 mg PO DAILY tabec 07/15/17 Rx cycloSPORINE [Restasis] 1 drop EACHEYE Q12H 07/15/17 Rx Allergies/Adverse Reactions: Allergies Allergy/AdvReac Type Severity Reaction Status Date / Time codeine Allergy DIZZINESS Verified 07/15/17 17:36 fentanyl Allergy DIZZINESS Verified 07/15/17 15:00 morphine Allergy DIZZINESS Verified 07/15/17 15:00 moxifloxacin HCl Allergy RASH Verified 07/15/17 15:00 [From Avelox] shellfish derived Allergy ANAPHYLAXIS Verified 07/15/17 15:00 tramadol HCl [From Ultram] Allergy DIZZINESS Verified 07/15/17 15:00 - Medications Medications: Current Medications Acetaminophen (Tylenol 325mg Tab) 650 mg PO Q6 PRN PRN Reason: Pain, moderate (4-7) Aspirin (Ecotrin) 81 mg PO DAILY [facility] Home Med (Cyclosporine [Restasis]) 1 drop EACHEYE Q12H [facility] Levothyroxine Sodium (Synthroid) 75 mcg PO DAILY@0630 [facility] Metoprolol Succinate (Toprol Xl) 25 mg PO QPM [facility] Physical Exam - Neurological Exam Additional comments: Mental Status: Awake alert, Oriented X 3 Normal Memory X 3 Fluent Coherent Speech. Normal Judgment. She is explaining to what to eat in order to lose my big belly. Cranial Nerves II to XII: No deficits Motor: Normal Tone, power, muscle bulk DTR 0 to 1/4 Toes are down going by plantar stimulation Cerebellar: Normal FNT Sensory: No Deficits Results - Vital Signs Recent Vital Signs: Last Vital Signs Temp 97.6 F 07/13/17 00:13 Pulse 90 07/13/17 00:13 Resp 18 07/13/17 00:13 BP 129/73 07/13/17 00:13 Pulse Ox 99 07/13/17 00:13 - Labs Result Diagrams: 07/13/17 04:40 07/13/17 04:30 Labs: Laboratory Results - last 24 hr 07/12/17 07/12/17 07/12/17 18:31 19:00 19:00 WBC 9.1 RBC 4.45 Hgb 12.5 Hct 37.7 MCV 84.9 MCH 28.2 MCHC 33.2 RDW 13.5 Plt Count 196 MPV 8.6 Neut % (Auto) 80.7 H Lymph % (Auto) 13.3 L [place] % (Auto) 4.8 Eos % (Auto) 0.7 Baso % (Auto) 0.5 Neut # 7.4 H Lymph # 1.2 [place] # 0.4 Eos # 0.1 Baso # 0.0 PT INR APTT pO2 VBG pH VBG pCO2 VBG HCO3 VBG Total CO2 VBG O2 Sat (Calc) VBG Base Excess VBG Potassium Glucose Lactate FiO2 Sodium 138 Potassium 3.7 Chloride 101 Carbon Dioxide 23 Anion Gap 18 BUN 19 H Creatinine 0.7 Est GFR ( Amer) > 60 Est GFR (Non-Af Amer) > 60 POC Glucose (mg/dL) 165 H Random Glucose 154 H Calcium 9.2 Phosphorus 2.2 L Magnesium 2.1 Total Bilirubin 0.6 AST 45 H ALT 52 Alkaline Phosphatase 82 Troponin I 0.0210 Total Protein 7.6 Albumin 4.4 Globulin 3.2 Albumin/Globulin Ratio 1.4 Triglycerides 213 H Cholesterol 229 H LDL Cholesterol Direct 150 H HDL Cholesterol 43 Lipase 147 Venous Blood Potassium Alcohol, Quantitative < 10 Blood Type Antibody Screen BBK History Checked 07/12/17 07/12/17 07/12/17 19:00 19:00 19:25 WBC RBC Hgb Hct MCV MCH MCHC RDW Plt Count MPV Neut % (Auto) Lymph % (Auto) [place] % (Auto) Eos % (Auto) Baso % (Auto) Neut # Lymph # [place] # Eos # Baso # PT 11.3 INR 1.0 APTT 30.1 pO2 50 VBG pH 7.57 H VBG pCO2 28 L VBG HCO3 28.3 VBG Total CO2 26.6 VBG O2 Sat (Calc) 95.5 H VBG Base Excess 4.5 H VBG Potassium 3.2 L Glucose 138 H Lactate 3.0 H FiO2 21.0 Sodium 135.0 Potassium Chloride 105.0 Carbon Dioxide Anion Gap BUN Creatinine Est GFR ( Amer) Est GFR (Non-Af Amer) POC Glucose (mg/dL) Random Glucose Calcium Phosphorus Magnesium Total Bilirubin AST ALT Alkaline Phosphatase Troponin I Total Protein Albumin Globulin Albumin/Globulin Ratio Triglycerides Cholesterol LDL Cholesterol Direct HDL Cholesterol Lipase Venous Blood Potassium 3.2 L Alcohol, Quantitative Blood Type A POSITIVE Antibody Screen Negative BBK History Checked No verified bt Assessment & Plan (1) CVA (cerebral vascular accident) Assessment and Plan: Unlikely as there is a symmetrical generalized weakness of 2/4, in all 4 Extremities. CVA causes most likely weakness on 1 side except for hemorrhagic CVA and Cerebral Venous thrombosis. She has high lipid profile, High Cholesterol and high Triglycerides. This might be predisposing to CVA or Cardiac problems. Status: Ruled-out (2) Abdominal pain Status: Acute (3) Allergic reaction Status: Resolved (4) Back pain Assessment and Plan: MRI C Spine and LS Soine to R/O Radiculopathy and for her history of Disc Herniation in the LS area and mid Thoracic Pain can be performed as an Out Patient, unless her pain is getting worse.. Status: Chronic (5) Dehydration Status: Resolved Priority: High (6) Dizziness Status: Resolved (7) Hypertension Assessment and Plan: She is on Metaprolol and Cozar Currently on Metaprolol only. Status: Chronic Priority: High (8) Influenza Status: Ruled-out (9) Seizures Assessment and Plan: There is a possibility as Seizures are more likely to be bilateral, symmetrically equal. 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 Periodic Paralysis might be associated with Endocrinology deficits as Hypothyroidism. It is precipitated with cold weather, sudden eating after hunger, fatigue, viral infection and other causes that apply in her condition. Status: Acute
[2017-07-13 05:37] LABS: HEMATOCRIT 34.2 % (34.0-47.0); MEAN CELL VOLUME 84.5 fl (81.0-99.0); MEAN CORPUSCULAR HEMOGLOBIN 27.9 pg (27.0-31.0); WHITE BLOOD COUNT 5.9 K/uL (4.8-10.8)
[2017-07-13 05:59] LABS: PARTIAL THROMBOPLASTIN TIME 28.6 Seconds (25.6-37.1)
[2017-07-13 06:09] LABS: T4 12.7 ug/dl (5.5-11.0)
[2017-07-13 06:17] LABS: ALB/GLOB RATIO 1.2 (1.0-2.1); ALKALINE PHOSPHATASE 68 U/L (38-126); ALT/SGPT 44 U/L (9-52); AST/SGOT 42 U/L (14-36); BILIRUBIN,TOTAL 0.5 mg/dl (0.2-1.3); BLOOD UREA NITROGEN 17 mg/dl (7-17); CALCIUM 8.2 mg/dL (8.4-10.2); CARBON DIOXIDE 29 mmol/L (22-30); CHLORIDE 104 mmol/L (98-107); CHOLESTEROL 204 mg/dL (0-199); GFR AFRICAN-AMERICAN > 60; GLUCOSE,RANDOM 112 mg/dL (65-105); SODIUM 138 mmol/l (132-148); TOTAL PROTEIN 6.3 G/DL (6.3-8.2)
[2017-07-13] MEDS ORDERED: Levothyroxine 75 MCG TAB PO SCH (06:30)
[2017-07-13 06:46] LABS: THYROID STIMULATING HORMONE < 0.02 mIU/ML (0.46-4.68)
--- NOTE | 2017-07-13 08:04 | RAD ---
HISTORY: Weakness COMPARISON: 10/16/2016 FINDINGS: LUNGS: No active pulmonary disease. PLEURA: No significant pleural effusion identified, no pneumothorax apparent. CARDIOVASCULAR: No radiographic findings to suggest acute or significant cardiovascular disease. OSSEOUS STRUCTURES: No significant abnormalities. VISUALIZED UPPER ABDOMEN: Normal. OTHER FINDINGS: None. IMPRESSION: No active disease. No significant interval change compared to the prior examination(s).
--- NOTE | 2017-07-13 14:34 | US ---
PROCEDURE: Duplex ultrasound of the carotid and vertebral arteries. HISTORY: R/O CVA COMPARISON: 08/16/2016 TECHNIQUE: Grayscale and duplex Doppler evaluation of the cervical carotid and vertebral arteries were performed. The common carotid, carotid bifurcations and cervical ICA and proximal ECA were evaluated. The vertebral arteries were evaluated for gross patency and direction. FINDINGS: RIGHT CAROTID ARTERIES: Common Carotid Artery: Intimal thickening is present Maximal flow velocity of 83.3 cm/s. Carotid Bifurcation: Partially calcified plaque identified Internal Carotid Artery:Heterogeneous plaque formation. Maximal flow velocity of 98.6 cm/s. Tortuous right ICA External Carotid Artery (proximal branches): Normal. Maximal flow velocity of 98.6 cm/s. ICA/CCA Ratio: 1.2 LEFT CAROTID ARTERIES: Common Carotid Artery: Intimal thickening is present Maximal flow velocity of 111.3 cm/s. Carotid Bifurcation: Focal partially calcified plaque at the level of the bulb Internal Carotid Artery:Normal. Maximal flow velocity of 92.7 cm/s. Tortuous left ICA External Carotid Artery (proximal branches): Normal. Maximal flow velocity of 97.8 cm/s. ICA/CCA Ratio: 0.8 VERTEBRAL ARTERIES: Right Vertebral Artery: Patent. Antegrade flow. Left Vertebral Artery: Patent. Antegrade flow. OTHER FINDINGS: None. IMPRESSION: No significant interval change compared to the prior examination(s). Right ICA degree of stenosis: Less than 50% Left ICA degree of stenosis: Less than 50% Reference Internal Carotid Artery (ICA) Peak Systolic Velocity (PSV) for above: 1. Less than 50% stenosis less than 125 cm/s peak systolic velocity 2. 50-69% stenosis 125-230cm/s peak systolic velocity 3. Greater than 70% but less than near occlusion greater than 230 cm/s peak systolic velocity
--- NOTE | 2017-07-13 14:57 | MRI ---
PROCEDURE: MRI BRAIN WITHOUT CONTRAST HISTORY: R/O intracranial structural pathology COMPARISON: None. TECHNIQUE: Multiplanar, multisequence MR images of the brain were obtained without intravenous contrast enhancement. FINDINGS: HEMORRHAGE: None DWI: No evidence of an acute or early subacute infarction. BRAIN PARENCHYMA: Diffuse expansion of the ventriculosulcal and cisternal spaces is appreciated with white matter signal changes compatible with diffuse cerebral atrophy and chronic microangiopathy. There is no mass identified. Chronic lacune or infarcts are identified at the inferior bilateral cerebellar hemispheres. There is no suspicious extra-axial fluid collection appreciated. Note is made of a somewhat prominent appearing sella which is empty, potentially root containing a very small arachnoid cyst. VENTRICLES: Unremarkable. No hydrocephalus. CRANIUM: Unremarkable. ORBITS: Grossly unremarkable. PARANASAL SINUSES/MASTOIDS: Clear VASCULAR SYSTEM: Skull base flow voids intact. OTHER FINDINGS: None. IMPRESSION: No definite acute findings grossly evident. Age related neuro degenerative findings are appreciated which appear age-appropriate. The sella appears somewhat prominent but no soft tissue is identified within a definitively making this an empty sella but possibly with an arachnoid cyst. No suspicious interval findings compared to prior head CT dated 07/12/2017.
--- NOTE | 2017-07-13 14:58 | CP.PCM.HP ---
History of Present Illness - History of Present Illness History of Present Illness: CC: Weakness. 76 y/o F, Hx of TIAs, brought by daughter to [facility], [place] to be evaluated for weakness about 2 pm on DOA with no relief. As per daughter, found mother in bed c/o of weakness in all extremities associated to numbness. Pt been Tx by Dr. Jay for Hx of TIA, c/o of on and off blurry vision on R eye for ongoing months, Dr Jay planing for possible ambulatory EGG on July. Worsening symptoms: Pt c/o of abdominal discomfort/pain associated to nausea, vomiting, non bilious, non bloody. Neck pain, chronic back pain 2nd to herniated disc in L-S area. Aggravated factor: Unable to stand up from bed. Pt denied: Fever, chills, diarrhea, urinary symptoms, CP, SOB, cough, sick contact, recent travel out of [facility]. EKG showed Sinus rhythm with PAC, CXR: No active disease. Head CT: No acute intracranial abnormalities. Present on Admission - Present on Admission Any Indicators Present on Admission: No Review of Systems - Constitutional Constitutional: Malaise, Weakness - EENT Eyes: Other Visual Disturbances Ears: Other (negative) Nose/Mouth/Throat: Neck Pain, Other (negative) - Cardiovascular Cardiovascular: Other (negative) - Respiratory Respiratory: Other (negative) - Gastrointestinal Gastrointestinal: Abdominal Pain, Nausea, Vomiting - Genitourinary Genitourinary: Other (negative) - Musculoskeletal Musculoskeletal: Back Pain, Muscle Weakness (all extremities), Numbness - Integumentary Integumentary: Other (negative) - Neurological Neurological: Sensory Deficit, Weakness - Psychiatric Psychiatric: Other (negative) - Endocrine Endocrine: Other (negative) - Hematologic/Lymphatic Hematologic: Other (negative) Past Patient History - Past Medical History & Family History Past Medical History?: Yes Pertinent Family History: Unknown - Past Social History Smoking Status: Never Smoked Alcohol: None Drugs: Denies Home Situation {Lives}: With Family - CARDIAC Hx Cardiac Disorders: Yes Hx Hypercholesterolemia: Yes Hx Hypertension: Yes - PULMONARY Hx Respiratory Disorders: Yes Hx Bronchitis: Yes - NEUROLOGICAL Hx Neurological Disorder: Yes Hx Transient Ischemic Attacks (TIA): Yes - HEENT Hx HEENT Problems: Yes Other/Comment: Pt reports on and off episodes of losing half her visual osborn after a TIA (loses vision on right side) - RENAL Hx Chronic Kidney Disease: No - ENDOCRINE/METABOLIC Hx Endocrine Disorders: Yes Hx Hypothyroidism: Yes - HEMATOLOGICAL/ONCOLOGICAL Hx Blood Disorders: No Hx Human Immunodeficiency Virus (HIV): No - INTEGUMENTARY Hx Dermatological Problems: No - MUSCULOSKELETAL/RHEUMATOLOGICAL Hx Musculoskeletal Disorders: Yes Hx Back Pain: Yes - GASTROINTESTINAL Hx Gastrointestinal Disorders: No - GENITOURINARY/GYNECOLOGICAL Hx Genitourinary Disorders: No - PSYCHIATRIC Hx Psychophysiologic Disorder: No Hx Substance Use: No - SURGICAL HISTORY Hx Surgeries: Yes Hx Appendectomy: Yes - ANESTHESIA Hx Anesthesia: Yes Hx Anesthesia Reactions: No Hx Malignant Hyperthermia: No Meds Home Medications: Home Medication List Medication Instructions Recorded Confirmed Type Acetaminophen [Tylenol 325mg tab] 650 mg PO Q6 PRN tab 07/15/17 Rx Aspirin [Ecotrin] 81 mg PO DAILY tabec 07/15/17 Rx cycloSPORINE [Restasis] 1 drop EACHEYE Q12H 07/15/17 Rx Allergies/Adverse Reactions: Allergies Allergy/AdvReac Type Severity Reaction Status Date / Time codeine Allergy DIZZINESS Verified 07/15/17 17:36 fentanyl Allergy DIZZINESS Verified 07/15/17 15:00 morphine Allergy DIZZINESS Verified 07/15/17 15:00 moxifloxacin HCl Allergy RASH Verified 07/15/17 15:00 [From Avelox] shellfish derived Allergy ANAPHYLAXIS Verified 07/15/17 15:00 tramadol HCl [From Ultram] Allergy DIZZINESS Verified 07/15/17 15:00 Physical Exam - Constitutional Appears: No Acute Distress - Head Exam Head Exam: NORMAL INSPECTION - Eye Exam Eye Exam: PERRL - ENT Exam ENT Exam: Normal Oropharynx - Neck Exam Neck exam: Positive for: Tenderness (mild) - Respiratory Exam Respiratory Exam: NORMAL BREATHING PATTERN - Cardiovascular Exam Cardiovascular Exam: REGULAR RHYTHM - GI/Abdominal Exam GI & Abdominal Exam: Normal Bowel Sounds, Soft - Extremities Exam Extremities exam: Negative for: pedal edema - Back Exam Back exam: NORMAL INSPECTION - Neurological Exam Neurological exam: Alert, CN II-XII Intact, Oriented x3 Additional comments: generalized weakness. - Psychiatric Exam Psychiatric exam: Normal Mood - Skin Skin Exam: Warm Results - Vital Signs Recent Vital Signs: Last Vital Signs Temp 98.0 F 07/13/17 11:49 Pulse 82 07/13/17 11:49 Resp 18 07/13/17 11:49 BP 152/77 H 07/13/17 11:49 Pulse Ox 99 07/13/17 11:49 reviewed Collins - Labs Result Diagrams: 07/13/17 04:40 07/13/17 04:30 Labs: Laboratory Results - last 24 hr 07/12/17 07/12/17 07/12/17 18:31 19:00 19:00 WBC 9.1 RBC 4.45 Hgb 12.5 Hct 37.7 MCV 84.9 MCH 28.2 MCHC 33.2 RDW 13.5 Plt Count 196 MPV 8.6 Neut % (Auto) 80.7 H Lymph % (Auto) 13.3 L Bennett % (Auto) 4.8 Eos % (Auto) 0.7 Baso % (Auto) 0.5 Neut # 7.4 H Lymph # 1.2 Bennett # 0.4 Eos # 0.1 Baso # 0.0 ESR PT INR APTT pO2 VBG pH VBG pCO2 VBG HCO3 VBG Total CO2 VBG O2 Sat (Calc) VBG Base Excess VBG Potassium Glucose Lactate FiO2 Sodium 138 Potassium 3.7 Chloride 101 Carbon Dioxide 23 Anion Gap 18 BUN 19 H Creatinine 0.7 Est GFR ( Amer) > 60 Est GFR (Non-Af Amer) > 60 POC Glucose (mg/dL) 165 H Random Glucose 154 H Hemoglobin A1c Uric Acid Calcium 9.2 Phosphorus 2.2 L Magnesium 2.1 Total Bilirubin 0.6 AST 45 H ALT 52 Alkaline Phosphatase 82 Troponin I 0.0210 C-React Prot High Sens Total Protein 7.6 Albumin 4.4 Globulin 3.2 Albumin/Globulin Ratio 1.4 Triglycerides 213 H Cholesterol 229 H LDL Cholesterol Direct 150 H HDL Cholesterol 43 Lipase 147 Vitamin B12 25-OH Vitamin D Total Thyroxine (T4) TSH 3rd Generation Venous Blood Potassium Alcohol, Quantitative < 10 Blood Type Antibody Screen BBK History Checked 07/12/17 07/12/17 07/12/17 19:00 19:00 19:25 WBC RBC Hgb Hct MCV MCH MCHC RDW Plt Count MPV Neut % (Auto) Lymph % (Auto) Bennett % (Auto) Eos % (Auto) Baso % (Auto) Neut # Lymph # Bennett # Eos # Baso # ESR PT 11.3 INR 1.0 APTT 30.1 pO2 50 VBG pH 7.57 H VBG pCO2 28 L VBG HCO3 28.3 VBG Total CO2 26.6 VBG O2 Sat (Calc) 95.5 H VBG Base Excess 4.5 H VBG Potassium 3.2 L Glucose 138 H Lactate 3.0 H FiO2 21.0 Sodium 135.0 Potassium Chloride 105.0 Carbon Dioxide Anion Gap BUN Creatinine Est GFR ( Amer) Est GFR (Non-Af Amer) POC Glucose (mg/dL) Random Glucose Hemoglobin A1c Uric Acid Calcium Phosphorus Magnesium Total Bilirubin AST ALT Alkaline Phosphatase Troponin I C-React Prot High Sens Total Protein Albumin Globulin Albumin/Globulin Ratio Triglycerides Cholesterol LDL Cholesterol Direct HDL Cholesterol Lipase Vitamin B12 25-OH Vitamin D Total Thyroxine (T4) TSH 3rd Generation Venous Blood Potassium 3.2 L Alcohol, Quantitative Blood Type A POSITIVE Antibody Screen Negative BBK History Checked No verified bt 07/12/17 07/13/17 07/13/17 21:46 04:30 04:30 WBC RBC Hgb Hct MCV MCH MCHC RDW Plt Count MPV Neut % (Auto) Lymph % (Auto) Bennett % (Auto) Eos % (Auto) Baso % (Auto) Neut # Lymph # Bennett # Eos # Baso # ESR PT INR APTT pO2 VBG pH VBG pCO2 VBG HCO3 VBG Total CO2 VBG O2 Sat (Calc) VBG Base Excess VBG Potassium Glucose Lactate FiO2 Sodium 138 Potassium 4.0 Chloride 104 Carbon Dioxide 29 Anion Gap 9 L BUN 17 Creatinine 0.7 Est GFR ( Amer) > 60 Est GFR (Non-Af Amer) > 60 POC Glucose (mg/dL) Random Glucose 112 H Hemoglobin A1c 5.6 Uric Acid 4.0 Calcium 8.2 L Phosphorus Magnesium Total Bilirubin 0.5 AST 42 H ALT 44 Alkaline Phosphatase 68 Troponin I C-React Prot High Sens 2.06 Total Protein 6.3 Albumin 3.5 D Globulin 2.8 Albumin/Globulin Ratio 1.2 Triglycerides 111 D Cholesterol 204 H LDL Cholesterol Direct 142 H HDL Cholesterol 43 Lipase Vitamin B12 957 H 25-OH Vitamin D Total Thyroxine (T4) 12.7 H TSH 3rd Generation < 0.02 L Venous Blood Potassium Alcohol, Quantitative Blood Type Antibody Screen BBK History Checked 07/13/17 07/13/17 07/13/17 04:30 04:40 04:40 WBC 5.9 RBC 4.05 Hgb 11.3 L Hct 34.2 MCV 84.5 MCH 27.9 MCHC 33.0 RDW 14.0 Plt Count 196 MPV Neut % (Auto) Lymph % (Auto) Bennett % (Auto) Eos % (Auto) Baso % (Auto) Neut # Lymph # Bennett # Eos # Baso # ESR 33 H PT 12.0 INR 1.1 APTT 28.6 pO2 VBG pH VBG pCO2 VBG HCO3 VBG Total CO2 VBG O2 Sat (Calc) VBG Base Excess VBG Potassium Glucose Lactate FiO2 Sodium Potassium Chloride Carbon Dioxide Anion Gap BUN Creatinine Est GFR ( Amer) Est GFR (Non-Af Amer) POC Glucose (mg/dL) Random Glucose Hemoglobin A1c Uric Acid Calcium Phosphorus Magnesium Total Bilirubin AST ALT Alkaline Phosphatase Troponin I C-React Prot High Sens Total Protein Albumin Globulin Albumin/Globulin Ratio Triglycerides Cholesterol LDL Cholesterol Direct HDL Cholesterol Lipase Vitamin B12 25-OH Vitamin D Total 31.0 Thyroxine (T4) TSH 3rd Generation Venous Blood Potassium Alcohol, Quantitative Blood Type Antibody Screen BBK History Checked reviewed J.P. - EKG Data EKG comments: reviewed J.P. - Imaging and Cardiology Chest x-ray Status: Report reviewed by me (.P.) CT scan - head Status: Report reviewed by me (J.P.) CT scan - abdomen Status: Report reviewed by me (J.P.) CT scan - pelvis Status: Report reviewed by me (J.P.) Assessment & Plan (1) Hypokalemic periodic paralysis Status: Acute Priority: High (2) Weakness Status: Acute Priority: High (3) Dehydration Status: Resolved Priority: High (4) Hypertension Status: Chronic Priority: High - Assessment and Plan (Free Text) Plan: F/U Carotid U-S, Brain MRI, ASA 81 mg, Toprol XL, Sodium Chloride IV, Neurology consult appreciated, PT eval. - Date & Time Date: 07/13/17 Time: 10:00
[2017-07-13] MEDS: Sodium Chloride 0.9% 1,000 ML IV SCH (16:30)
[2017-07-13] MEDS: Metoprolol Succinate 25 mg XL Tab PO SCH (17:21)
--- NOTE | 2017-07-13 19:06 | CARD ---
APPROVED REPORT EKG Measurement Heart [id number] <Conclusion> Sinus rhythm with premature atrial complexes Otherwise normal ECG
--- NOTE | 2017-07-14 00:39 | CP.PCM.PN ---
Subjective - Date & Time of Evaluation Date of Evaluation: 07/14/17 Time of Evaluation: 00:35 - Subjective Subjective: IMPRESSION of MRI Brain: No definite acute findings grossly evident. Age related neuro degenerative findings are appreciated which appear age-appropriate. The sella appears somewhat prominent but no soft tissue is identified within a definitively making this an empty sella but possibly with an arachnoid cyst. No suspicious interval findings compared to prior head CT dated 07/12/2017. She has a non significant bilateral Carotid Doppler, showing less than 50 % stenosis bilaterally There is no focal weakness. 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 Objective - Vital Signs/Intake and Output Vital Signs (last 24 hours): Temp Pulse Resp BP Pulse Ox 98.7 F 92 H 18 165/73 H 95 07/13/17 20:18 07/13/17 20:18 07/13/17 20:18 07/13/17 20:18 07/13/17 20:18 - Medications Medications: Current Medications Acetaminophen (Tylenol 325mg Tab) 650 mg PO Q6 PRN PRN Reason: Pain, moderate (4-7) Aspirin (Ecotrin) 81 mg PO DAILY [facility] Last Admin: 07/13/17 08:39 Dose: 81 mg Home Med (Cyclosporine [Restasis]) 1 drop EACHEYE Q12H [facility] Sodium Chloride (Sodium Chloride 0.9%) 1,000 mls @ 75 mls/hr IV .[id number] [facility] Stop: 07/14/17 15:52 Last Admin: 07/13/17 16:30 Dose: 75 mls/hr Metoprolol Succinate (Toprol Xl) 25 mg PO QPM [facility] Last Admin: 07/13/17 17:21 Dose: 25 mg - Labs Labs: 07/13/17 04:40 07/13/17 04:30 PT 12.0 Seconds (9.8-13.1) 07/13/17 04:40 INR 1.1 (0.9-1.2) 07/13/17 04:40 APTT 28.6 Seconds (25.6-37.1) 07/13/17 04:40 Assessment and Plan (1) CVA (cerebral vascular accident) Status: Acute (2) Abdominal pain Status: Acute (3) Acute back pain Status: Acute (4) Allergic reaction Status: Acute (5) Back pain Status: Acute (6) Dehydration Status: Acute (7) Dizziness Status: Acute (8) Hypertension Status: Chronic (9) Influenza Status: Acute (10) Seizures Status: Acute (11) Hypokalemic periodic paralysis Status: Acute
[2017-07-14] MEDS: Sodium Chloride 0.9% 1,000 ML IV SCH (06:00)
--- NOTE | 2017-07-14 08:39 | EEG ---
DATE: 07/13/2017 This is a 16-channel electroencephalogram of awake and drowsy adult. The resting electroencephalogram consists of 20 to 30 microvolts diffuse theta activities noted at parietal and occipital leads. Anteriorly, fast activity superimposed with 2 to 3 Hz delta activities. The photic stimulation did not evoke driving response noted at 2 to 20 Hz. IMPRESSION: This is an abnormal electroencephalogram because of persistent slowing throughout the record suggestive of bilateral cerebral dysfunction. This is probably secondary to metabolic, vascular or degenerative process. Please correlate the finding with the neurological and radiological studies. Suhail Meza MD
--- NOTE | 2017-07-14 09:20 | EEG ---
DATE: 07/13/2017 UNIT NUMBER: [id number] This is a 16-channel electroencephalogram of awake and drowsy adult. During the study, photic stimulation was performed. Hyperventilation was not performed. The resting electroencephalogram consists of a low amplitude fast beta activities noted in the bilateral cortical leads, which is superimposed 2 to 3 Hz delta activities seen. The photic stimulation did not evoke driving response noted at 2 to 20 Hz. IMPRESSION: This is an abnormal electroencephalogram because of persistent fast beta activities continuously seen throughout the record suggestive of bilateral cerebral dysfunction. This could be from sedative drug effect. Please correlate the finding with the neurological and radiological studies. Suhail Meza MD
--- NOTE | 2017-07-14 11:54 | PQF GENQUE ---
Dr. Aguirre, CVA ruled in or ruled out? OR: Other explanation of clinical finding OR: Unable to determine 07/12 CT Head: IMPRESSION: No acute intracranial abnormalities. No significant findings to account for the clinical presentation. No significant interval change compared to the prior examination(s 07/13 MRI: Imp.: No definite acute findings grossly evident. Age related neuro degenerative findings are appreciated which appear age-appropriate. The sella appears somewhat prominent but no soft tissue is identified within a definitively making this an empty sella but possibly with an arachnoid cyst. No suspicious interval findings compared to prior head CT dated 07/12/2017. Neuro consult in draft : Plan : (1) CVA (cerebral vascular accident) Assessment and Plan: Unlikely as there is a symmetrical generalized weakness of 2/4, in all 4 Extremities. CVA causes most likely weakness on 1 side except for hemorrhagic CVA and Cerebral Venous thrombosis. She has high lipid profile, High Cholesterol and high Triglycerides. This might be predisposing to CVA or Cardiac problems. Neuro 07/14 note in draft: DXS. 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 Indicators present [] Specify: [] [] Specify: [] [] Specify: [] [] Specify: [] Location in the medical record that reflects the above clinical findings: [] Treatment Provided: [] PHYSICIAN'S RESPONSE Based on your medical judgment of the clinical indicators outlined above please clarify the following: [] Practitioner response [] If unable to determine, please check the box, sign and date. Present On Admission (POA) Indicator: [] Present at the time of admission [] Not present at the time of admission [] Clinically Undetermined In responding to this query, please exercise your independent professional judgment. The fact that a question is asked does not imply that any particular answer is desired or expected. Thank you for your clarification on this documentation. If you have any questions please call. * Thank you, Marixa Schulte RN ext. [phone] [facility]
--- NOTE | 2017-07-14 14:51 | CP.PCM.PN ---
Subjective - Date & Time of Evaluation Date of Evaluation: 07/14/17 Time of Evaluation: 15:20 - Subjective Subjective: F/U weakness/ Hypokalemic periodic paralysis. Objective - Vital Signs/Intake and Output Vital Signs (last 24 hours): Temp Pulse Resp BP Pulse Ox 98 F 64 20 155/74 H 99 07/14/17 13:00 07/14/17 13:00 07/14/17 13:00 07/14/17 13:00 07/14/17 13:00 - Medications Medications: Current Medications Acetaminophen (Tylenol 325mg Tab) 650 mg PO Q6 PRN PRN Reason: Pain, moderate (4-7) Aspirin (Ecotrin) 81 mg PO DAILY [facility] Last Admin: 07/14/17 08:51 Dose: 81 mg Home Med (Cyclosporine [Restasis]) 1 drop EACHEYE Q12H [facility] Sodium Chloride (Sodium Chloride 0.9%) 1,000 mls @ 75 mls/hr IV .[id number] [facility] Stop: 07/14/17 15:52 Last Admin: 07/14/17 06:00 Dose: Not Given Metoprolol Succinate (Toprol Xl) 25 mg PO QPM [facility] Last Admin: 07/13/17 17:21 Dose: 25 mg - Labs Labs: 07/13/17 04:40 07/13/17 04:30 PT 12.0 Seconds (9.8-13.1) 07/13/17 04:40 INR 1.1 (0.9-1.2) 07/13/17 04:40 APTT 28.6 Seconds (25.6-37.1) 07/13/17 04:40 - Constitutional Appears: No Acute Distress - Head Exam Head Exam: NORMAL INSPECTION - Eye Exam Eye Exam: PERRL - ENT Exam ENT Exam: Normal Exam - Neck Exam Neck Exam: Tenderness (mild) - Respiratory Exam Respiratory Exam: NORMAL BREATHING PATTERN - Cardiovascular Exam Cardiovascular Exam: REGULAR RHYTHM - GI/Abdominal Exam GI & Abdominal Exam: Soft, Normal Bowel Sounds - Extremities Exam Extremities Exam: Normal Inspection - Back Exam Back Exam: NORMAL INSPECTION - Neurological Exam Neurological Exam: Alert, CN II-XII Intact, Oriented x3 Additional comments: Generalized weakness - Psychiatric Exam Psychiatric exam: Normal Mood - Skin Skin Exam: Warm Assessment and Plan (1) Weakness Status: Acute (2) Hypokalemic periodic paralysis Status: Acute (3) Dehydration Status: Resolved (4) Hypertension Status: Chronic
[2017-07-14] MEDS: Metoprolol Succinate 25 mg XL Tab PO SCH (17:38)
--- NOTE | 2017-07-15 01:08 | CP.PCM.PN ---
Subjective - Date & Time of Evaluation Date of Evaluation: 07/14/17 Time of Evaluation: 22:00 - Subjective Subjective: She is feeling comfortable, her Vit B 12 12 normal, Vit D is low normal, negative JULIUS, lipid profile is seen and is normal now except for high LDL at 140. Normal Vital Signs. No evidence of infection. Normal VS. Dx is most likely Periodic paralysis. Objective - Vital Signs/Intake and Output Vital Signs (last 24 hours): Temp Pulse Resp BP Pulse Ox 98.4 F 66 18 132/64 97 07/15/17 00:32 07/15/17 00:32 07/15/17 00:32 07/15/17 00:32 07/15/17 00:32 - Medications Medications: Current Medications Acetaminophen (Tylenol 325mg Tab) 650 mg PO Q6 PRN PRN Reason: Pain, moderate (4-7) Aspirin (Ecotrin) 81 mg PO DAILY [facility] Last Admin: 07/14/17 08:51 Dose: 81 mg Home Med (Cyclosporine [Restasis]) 1 drop EACHEYE Q12H [facility] Metoprolol Succinate (Toprol Xl) 25 mg PO QPM [facility] Last Admin: 07/14/17 17:38 Dose: 25 mg - Labs Labs: 07/13/17 04:40 07/13/17 04:30 PT 12.0 Seconds (9.8-13.1) 07/13/17 04:40 INR 1.1 (0.9-1.2) 07/13/17 04:40 APTT 28.6 Seconds (25.6-37.1) 07/13/17 04:40 Assessment and Plan (1) CVA (cerebral vascular accident) Status: Ruled-out (2) Abdominal pain Status: Acute (3) Allergic reaction Status: Resolved (4) Back pain Status: Chronic (5) Dehydration Status: Resolved (6) Dizziness Status: Resolved (7) Hypertension Status: Chronic (8) Influenza Status: Ruled-out (9) Seizures Status: Ruled-out (10) Hypokalemic periodic paralysis Assessment & Plan: Treated by Potassium, rehydration, improvement of general condition. Status: Acute
[2017-07-15 07:49] VITALS: RESP 20
[2017-07-15 15:48] VITALS: BP 156/71; PULSE 65; TEMP 98.5; O2SAT 99
--- NOTE | 2017-07-15 16:25 | CP.PCM.PN ---
Subjective - Date & Time of Evaluation Date of Evaluation: 07/15/17 Time of Evaluation: 13:50 - Subjective Subjective: F/u Weakness/ Hypekalemic paralysis. Pt feeling better, incrasing feeling in her legs, able to ambulate to the bathroom with the help of her daughter Objective - Vital Signs/Intake and Output Vital Signs (last 24 hours): Temp Pulse Resp BP Pulse Ox 98.5 F 65 20 156/71 H 99 07/15/17 15:47 07/15/17 15:47 07/15/17 15:47 07/15/17 15:47 07/15/17 15:47 - Medications Medications: Current Medications Acetaminophen (Tylenol 325mg Tab) 650 mg PO Q6 PRN PRN Reason: Pain, moderate (4-7) Aspirin (Ecotrin) 81 mg PO DAILY [facility] Last Admin: 07/15/17 09:01 Dose: 81 mg Home Med (Cyclosporine [Restasis]) 1 drop EACHEYE Q12H [facility] Metoprolol Succinate (Toprol Xl) 25 mg PO QPM [facility] Last Admin: 07/14/17 17:38 Dose: 25 mg - Labs Labs: 07/13/17 04:40 07/13/17 04:30 PT 12.0 Seconds (9.8-13.1) 07/13/17 04:40 INR 1.1 (0.9-1.2) 07/13/17 04:40 APTT 28.6 Seconds (25.6-37.1) 07/13/17 04:40 - Constitutional Appears: No Acute Distress - Head Exam Head Exam: NORMAL INSPECTION - Eye Exam Eye Exam: PERRL - ENT Exam ENT Exam: Normal Exam - Neck Exam Neck Exam: Normal Inspection - Respiratory Exam Respiratory Exam: NORMAL BREATHING PATTERN - Cardiovascular Exam Cardiovascular Exam: REGULAR RHYTHM - GI/Abdominal Exam GI & Abdominal Exam: Soft, Normal Bowel Sounds - Extremities Exam Extremities Exam: Normal Inspection - Back Exam Back Exam: NORMAL INSPECTION - Neurological Exam Neurological Exam: Alert, Oriented x3 Additional comments: Generalized weakness. - Psychiatric Exam Psychiatric exam: Normal Mood - Skin Skin Exam: Warm Assessment and Plan (1) Weakness Status: Acute (2) Hypokalemic periodic paralysis Status: Acute (3) Dehydration Status: Resolved (4) Hypertension Status: Chronic - Assessment and Plan (Free Text) Plan: Pt improved and stable to be transferred to TCU.
--- NOTE | 2017-07-17 11:32 | CP.PCM.PCO ---
Answering physician query addressed by nurse regarding the patient, Edna Reid. The nurse is called Deepika Sexton. The consult is dictated and the CAT scan impression was no acute intracranial abnormalities. No significant findings to account for the clinical presentation. No significant interval change compared to the previous examination. This was on 07/12/2017 on admission. The code stroke was called and everyone was worried about having a code stroke. We did an MRI on 07/13/2017 to rule out a stroke. It is well known that venous sinus thrombosis in the brain is a stroke that can cause weakness of both sides and we were doing this MRI in order to rule out any cerebral venous sinus thrombosis and it was ruled out by the MRI and there is no problem regarding a stroke. My first impression, the patient was doing well and she was not suffering from any weakness. So, I thought maybe it is a venous sinus thrombosis that resolved or maybe it is a periodic paralysis and the MRI of the brain proved that there is no venous sinus thrombosis and there is no CVA and this appears mainly with further imaging like MRI of the brain, and if positive, we would have requested an MRV. The MRI of the brain proved to be negative for any CVA and this was based that the patient has a history of high blood pressure, high cholesterol, and hemorrhage also can cause the same thing like cerebral venous sinus thrombosis. The MRI showed there is no stroke and a code stroke was called off and the patient is enjoying a normal cerebral function. The only problem here was periodic paralysis as she was having low potassium or hypokalemia and she as suffering from weakness that lasted few hours and resolved after giving potassium intravenously, replacement for the deficit, and the cold weather can predispose also to periodic paralysis and the hypothyroidism, low thyroxin predispose to periodic paralysis. The period paralysis was resolved. Patient was rehydrated and dehydration also can predispose to periodic paralysis. Eating fast after being hungry for a while can predispose also to periodic paralysis and this has been treated adequately. Any cardiac condition has been ruled out. High blood pressure is controlled. Patient regained her force after few hours of replacement with potassium and patient's CVA has been ruled out, but an MRI was a must at the beginning as the patient was admitted for code stroke. MD AIDAN ShaikhD
== END 2017-07-15 16:30 | DRG 93 ==
LOC: H.ER 18:16 → H.ERHOLD 20:43 → H.TEL 23:07
PROVIDERS: ADMIT Internal Medicine Pulmonary Disease; ATTEND Internal Medicine Pulmonary Disease
DX: G72.3 Periodic paralysis (principal); E86.0 Dehydration; K76.0 Fatty (change of) liver, not elsewhere classified; E83.39 Other disorders of phosphorus metabolism; E03.9 Hypothyroidism, unspecified; E78.00 Pure hypercholesterolemia, unspecified; E78.1 Pure hyperglyceridemia; G89.29 Other chronic pain; I10 Essential (primary) hypertension; Z79.82 Long term (current) use of aspirin; Z86.73 Personal history of transient ischemic attack (TIA), and cerebral infarction without residual deficits; Z90.49 Acquired absence of other specified parts of digestive tract; H53.8 Other visual disturbances; J40 Bronchitis, not specified as acute or chronic; M54.6 Pain in thoracic spine; M54.2 Cervicalgia; M54.9 Dorsalgia, unspecified; R26.2 Difficulty in walking, not elsewhere classified

== ENCOUNTER 2017-07-15 11:57 | Inpatient (IN) | payer OTHER ==
[2017-07-15] MEDS ORDERED: Patient's Own Med (Cyclosporine [Restasis] 1 DROP) EACHEYE SCH (17:45)
[2017-07-15 17:50] VITALS: RESP 20
[2017-07-15] MEDS: Metoprolol Succinate 25 mg XL Tab PO SCH (19:02)
[2017-07-16] MEDS: Metoprolol Succinate 25 mg XL Tab PO SCH (17:22)
--- NOTE | 2017-07-16 20:50 | CP.PCM.HP ---
History of Present Illness - History of Present Illness History of Present Illness: 76 y/o F, admitted to [facility] on 07/13/17 for severe weakens on DOA, Pt was found in bed by daughter unable to stand up, 911 was called and Pt was brought to hospital for evaluation and Tx. On 07/15/17, Pt medical condition improved and was transferred to TCU to continue PT in order to maximize strength and independence. Present on Admission - Present on Admission Any Indicators Present on Admission: No Review of Systems - Constitutional Constitutional: Weakness - EENT Eyes: Other Visual Disturbances Ears: Other (negative) Nose/Mouth/Throat: Other (negative) - Cardiovascular Cardiovascular: Other (negative) - Respiratory Respiratory: Other (negative) - Gastrointestinal Gastrointestinal: Other (negative) - Genitourinary Genitourinary: Other (negative) - Musculoskeletal Musculoskeletal: Back Pain - Integumentary Integumentary: Other (negative) - Neurological Neurological: Weakness - Psychiatric Psychiatric: Other (negative) - Endocrine Endocrine: Other (negative) - Hematologic/Lymphatic Hematologic: Other (negative) Past Patient History - Past Medical History & Family History Past Medical History?: Yes Pertinent Family History: Unknown - Past Social History Smoking Status: Never Smoked Alcohol: None Drugs: Denies Home Situation {Lives}: With Family - CARDIAC Hx Cardiac Disorders: Yes Hx Hypercholesterolemia: Yes Hx Hypertension: Yes - PULMONARY Hx Respiratory Disorders: Yes Hx Bronchitis: Yes - NEUROLOGICAL Hx Neurological Disorder: Yes Hx Transient Ischemic Attacks (TIA): Yes - HEENT Hx HEENT Problems: Yes Other/Comment: Pt reports on and off episodes of losing half her visual osborn after a TIA (loses vision on right side) - RENAL Hx Chronic Kidney Disease: No - ENDOCRINE/METABOLIC Hx Endocrine Disorders: Yes Hx Hypothyroidism: Yes - HEMATOLOGICAL/ONCOLOGICAL Hx Blood Disorders: No Hx AIDS: No Hx Human Immunodeficiency Virus (HIV): No - INTEGUMENTARY Hx Dermatological Problems: No - MUSCULOSKELETAL/RHEUMATOLOGICAL Hx Musculoskeletal Disorders: Yes Hx Back Pain: Yes Hx Falls: No - GASTROINTESTINAL Hx Gastrointestinal Disorders: No - GENITOURINARY/GYNECOLOGICAL Hx Genitourinary Disorders: No - PSYCHIATRIC Hx Psychophysiologic Disorder: No Hx Substance Use: No - SURGICAL HISTORY Hx Surgeries: Yes Hx Appendectomy: Yes - ANESTHESIA Hx Anesthesia: Yes Hx Anesthesia Reactions: No Hx Malignant Hyperthermia: No Meds Allergies/Adverse Reactions: Allergies Allergy/AdvReac Type Severity Reaction Status Date / Time codeine Allergy DIZZINESS Verified 07/15/17 17:36 fentanyl Allergy DIZZINESS Verified 07/15/17 15:00 morphine Allergy DIZZINESS Verified 07/15/17 15:00 moxifloxacin HCl Allergy RASH Verified 07/15/17 15:00 [From Avelox] shellfish derived Allergy ANAPHYLAXIS Verified 07/15/17 15:00 tramadol HCl [From Ultram] Allergy DIZZINESS Verified 07/15/17 15:00 Physical Exam - Constitutional Appears: No Acute Distress - Head Exam Head Exam: NORMAL INSPECTION - Eye Exam Eye Exam: PERRL - ENT Exam ENT Exam: Normal Exam - Neck Exam Neck exam: Positive for: Normal Inspection - Respiratory Exam Respiratory Exam: NORMAL BREATHING PATTERN - Cardiovascular Exam Cardiovascular Exam: REGULAR RHYTHM - GI/Abdominal Exam GI & Abdominal Exam: Normal Bowel Sounds, Soft - Extremities Exam Extremities exam: Positive for: normal inspection - Back Exam Back exam: NORMAL INSPECTION - Neurological Exam Neurological exam: Alert, CN II-XII Intact, Oriented x3 Additional comments: Generalized weakness - Psychiatric Exam Psychiatric exam: Normal Mood - Skin Skin Exam: Warm Results - Vital Signs Recent Vital Signs: Last Vital Signs Temp 98.1 F 07/16/17 20:09 Pulse 77 07/16/17 20:09 Resp 20 07/16/17 20:09 BP 125/87 07/16/17 20:09 Pulse Ox 98 07/16/17 20:09 reviewed J.P. - Labs Labs: reviewed J.P. Assessment & Plan (1) Weakness Status: Acute Priority: High (2) Hypokalemic periodic paralysis Status: Acute Priority: Medium (3) Hypertension Status: Chronic Priority: Medium - Assessment and Plan (Free Text) Plan: Continue Ecotrin, Toprol XL, PT.OT. - Date & Time Date: 07/16/17 Time: 12:30
[2017-07-17 06:18] LABS: BASO % 0.3 % (0.0-2.0); EOS # 0.2 K/uL (0.0-0.7); EOS % 2.3 % (0.0-4.0); HEMATOCRIT 36.7 % (34.0-47.0); LYMPH # 0.9 K/uL (1.0-4.3); LYMPH % 11.7 % (20.0-40.0); MEAN CELL VOLUME 84.3 fl (81.0-99.0); MEAN CORPUSCULAR HEMOGLOBIN 28.4 pg (27.0-31.0); MEAN CORPUSCULAR HGB CONC 33.7 g/dL (33.0-37.0); MEAN PLATELET VOLUME 8.3 fl (7.2-11.7); MONO # 0.5 K/uL (0.0-0.8); MONO % 6.1 % (0.0-10.0); NEUT # 6.3 K/uL (1.8-7.0); NEUT % 79.6 % (50.0-75.0); RED CELL DISTRIBUTION WIDTH 13.8 % (11.5-14.5)
[2017-07-17 06:31] LABS: ALB/GLOB RATIO 1.2 (1.0-2.1); ALKALINE PHOSPHATASE 75 U/L (38-126); ALT/SGPT 48 U/L (9-52); AST/SGOT 35 U/L (14-36); BILIRUBIN,TOTAL 0.5 mg/dl (0.2-1.3); BLOOD UREA NITROGEN 17 mg/dl (7-17); CALCIUM 9.1 mg/dL (8.4-10.2); CARBON DIOXIDE 31 mmol/L (22-30); CHLORIDE 102 mmol/L (98-107); GFR AFRICAN-AMERICAN > 60; GLUCOSE,RANDOM 159 mg/dL (65-105); POTASSIUM 3.9 MMOL/L (3.6-5.0); SODIUM 141 mmol/l (132-148)
--- NOTE | 2017-07-17 13:55 | CP.PCM.PN ---
Subjective - Date & Time of Evaluation Date of Evaluation: 07/17/17 Time of Evaluation: 09:40 - Subjective Subjective: F/U Weakness Pt doing well with PT, no c/o. Objective - Vital Signs/Intake and Output Vital Signs (last 24 hours): Temp Pulse Resp BP Pulse Ox 98.1 F 68 20 123/52 L 98 07/17/17 08:13 07/17/17 11:09 07/17/17 08:13 07/17/17 08:13 07/17/17 11:09 - Medications Medications: Current Medications Acetaminophen (Tylenol 325mg Tab) 650 mg PO Q6 PRN PRN Reason: Pain, moderate (4-7) Aspirin (Ecotrin) 81 mg PO DAILY [facility] Last Admin: 07/17/17 08:30 Dose: 81 mg Home Med (Cyclosporine [Restasis]) 1 drop EACHEYE Q12H [facility] Metoprolol Succinate (Toprol Xl) 25 mg PO QPM [facility] Last Admin: 07/16/17 17:22 Dose: 25 mg - Labs Labs: 07/17/17 05:50 07/17/17 05:50 - Constitutional Appears: No Acute Distress - Head Exam Head Exam: NORMAL INSPECTION - Eye Exam Eye Exam: PERRL - ENT Exam ENT Exam: Normal Exam - Neck Exam Neck Exam: Normal Inspection - Respiratory Exam Respiratory Exam: NORMAL BREATHING PATTERN - Cardiovascular Exam Cardiovascular Exam: REGULAR RHYTHM - GI/Abdominal Exam GI & Abdominal Exam: Soft, Normal Bowel Sounds - Extremities Exam Extremities Exam: Normal Inspection - Back Exam Back Exam: NORMAL INSPECTION - Neurological Exam Neurological Exam: Alert, Oriented x3. absent: Motor Sensory Deficit Additional comments: Generalized weakness. - Psychiatric Exam Psychiatric exam: Normal Affect, Normal Mood - Skin Skin Exam: Warm Assessment and Plan (1) Weakness Status: Acute (2) Hypokalemic periodic paralysis Status: Acute (3) Hypertension Status: Chronic - Assessment and Plan (Free Text) Plan: Discussed with PT, patient is ambulating with shaking balance, continue current Tx and PT.
[2017-07-17] MEDS: Metoprolol Succinate 25 mg XL Tab PO SCH (17:06)
[2017-07-18] MEDS: Patient's Own Med (Cyclosporine [Restasis] 1 DROP) EACHEYE SCH ×2 (08:36→21:16)
--- NOTE | 2017-07-18 14:08 | CP.PCM.PN ---
Subjective - Date & Time of Evaluation Date of Evaluation: 07/18/17 - Subjective Subjective: F/U Weakness. Pt doing well with PT, no A/D, no SOB. Objective - Vital Signs/Intake and Output Vital Signs (last 24 hours): Temp Pulse Resp BP Pulse Ox 97.9 F 71 20 125/65 96 07/18/17 08:20 07/18/17 08:58 07/18/17 08:20 07/18/17 08:58 07/18/17 08:58 - Medications Medications: Current Medications Acetaminophen (Tylenol 325mg Tab) 650 mg PO Q6 PRN PRN Reason: Pain, moderate (4-7) Aspirin (Ecotrin) 81 mg PO DAILY [facility] Last Admin: 07/18/17 08:37 Dose: 81 mg Home Med (Cyclosporine [Restasis]) 1 drop EACHEYE Q12H [facility] Last Admin: 07/18/17 08:36 Dose: 1 drop Metoprolol Succinate (Toprol Xl) 25 mg PO QPM [facility] Last Admin: 07/17/17 17:06 Dose: 25 mg - Labs Labs: 07/17/17 05:50 07/17/17 05:50 - Constitutional Appears: No Acute Distress - Head Exam Head Exam: NORMAL INSPECTION - Eye Exam Eye Exam: PERRL - ENT Exam ENT Exam: Normal Exam - Neck Exam Neck Exam: Normal Inspection - Respiratory Exam Respiratory Exam: Clear to Ausculation Bilateral - Cardiovascular Exam Cardiovascular Exam: REGULAR RHYTHM - GI/Abdominal Exam GI & Abdominal Exam: Soft, Normal Bowel Sounds - Extremities Exam Extremities Exam: Normal Inspection - Back Exam Back Exam: NORMAL INSPECTION - Neurological Exam Neurological Exam: Alert, Oriented x3. absent: Motor Sensory Deficit Additional comments: Generalized weakness. - Psychiatric Exam Psychiatric exam: Normal Affect, Normal Mood - Skin Skin Exam: Warm Assessment and Plan (1) Weakness Status: Acute (2) Hypokalemic periodic paralysis Status: Acute (3) Hypertension Status: Chronic - Assessment and Plan (Free Text) Plan: Continue current Tx and PT.
[2017-07-18] MEDS: Metoprolol Succinate 25 mg XL Tab PO SCH (17:33)
[2017-07-19 08:34] VITALS: TEMP 97.9
[2017-07-19] MEDS ORDERED: Dextrose 5%/0.45% NS 1,000 ML IV SCH (09:30)
[2017-07-19] MEDS: Patient's Own Med (Cyclosporine [Restasis] 1 DROP) EACHEYE SCH (09:33)
[2017-07-19 11:21] LABS: ALB/GLOB RATIO 1.2 (1.0-2.1); ALKALINE PHOSPHATASE 74 U/L (38-126); ALT/SGPT 41 U/L (9-52); AMYLASE 54 U/L (30-110); AST/SGOT 34 U/L (14-36); BILIRUBIN,TOTAL 0.6 mg/dl (0.2-1.3); BLOOD UREA NITROGEN 14 mg/dl (7-17); CALCIUM 8.9 mg/dL (8.4-10.2); CARBON DIOXIDE 33 mmol/L (22-30); CHLORIDE 102 mmol/L (98-107); GFR AFRICAN-AMERICAN > 60; GLUCOSE,RANDOM 106 mg/dL (65-105); LIPASE 81 U/L (23-300); SODIUM 141 mmol/l (132-148); TOTAL PROTEIN 6.7 G/DL (6.3-8.2)
[2017-07-19 11:39] LABS: HEMATOCRIT 34.3 % (34.0-47.0); MEAN CELL VOLUME 84.2 fl (81.0-99.0); MEAN CORPUSCULAR HEMOGLOBIN 28.6 pg (27.0-31.0); MEAN PLATELET VOLUME 8.3 fl (7.2-11.7); RED CELL DISTRIBUTION WIDTH 14.1 % (11.5-14.5); WHITE BLOOD COUNT 5.2 K/uL (4.8-10.8)
[2017-07-19 11:40] LABS: BASO % 0.4 % (0.0-2.0); EOS # 0.1 K/uL (0.0-0.7); EOS % 1.8 % (0.0-4.0); LYMPH # 1.3 K/uL (1.0-4.3); LYMPH % 20.9 % (20.0-40.0); MONO # 0.5 K/uL (0.0-0.8); MONO % 8.2 % (0.0-10.0); NEUT # 4.2 K/uL (1.8-7.0); NEUT % 68.7 % (50.0-75.0); NRBC % 0.1 % (0.0-0.0)
[2017-07-19] MEDS ORDERED: Iohexol 240 (50 ml) PO ONE (13:04)
[2017-07-19] MEDS ORDERED: Iohexol 240 (50 ml) ONE (13:14)
[2017-07-19] MEDS ORDERED: Barium Sulfate Susp 2.1% w/v, 2.0% w/w 450 mL Bottle PO ONE ×2 (13:24→13:28)
[2017-07-19] MEDS ORDERED: Barium Sulfate Susp 60% w/v, 41% w/w 355 ml Bottle PO ONE (13:29)
--- NOTE | 2017-07-19 15:02 | CP.PCM.PN ---
Subjective - Date & Time of Evaluation Date of Evaluation: 07/19/17 Time of Evaluation: 12:30 - Subjective Subjective: F/U Weakness/ LLQ abdominal pain. LLQ developed last night , increasing up to today , pain fix , 7-8:10 , no N/ V D, Patient with previous Hx of Diverticulitis Objective - Vital Signs/Intake and Output Vital Signs (last 24 hours): Temp Pulse Resp BP Pulse Ox 97.9 F 61 20 137/67 96 07/19/17 08:34 07/19/17 08:34 07/19/17 08:34 07/19/17 08:34 07/19/17 08:34 - Medications Medications: Current Medications Acetaminophen (Tylenol 325mg Tab) 650 mg PO Q6 PRN PRN Reason: Pain, moderate (4-7) Aspirin (Ecotrin) 81 mg PO DAILY [facility] Last Admin: 07/19/17 09:33 Dose: Not Given Home Med (Cyclosporine [Restasis]) 1 drop EACHEYE Q12H [facility] Last Admin: 07/19/17 09:33 Dose: 1 drop Dextrose/Sodium Chloride (Dextrose 5%/0.45% Ns 1000 Ml) 1,000 mls @ 80 mls/hr IV .[id number] [facility] Stop: 07/20/17 09:30 Last Admin: 07/19/17 10:40 Dose: 80 mls/hr Metoprolol Succinate (Toprol Xl) 25 mg PO QPM [facility] Last Admin: 07/18/17 17:33 Dose: 25 mg - Labs Labs: 07/19/17 10:54 07/19/17 10:54 PT 12.2 Seconds (9.8-13.1) 07/19/17 10:54 INR 1.1 (0.9-1.2) 07/19/17 10:54 - Constitutional Appears: No Acute Distress - Head Exam Head Exam: NORMAL INSPECTION - Eye Exam Eye Exam: PERRL - ENT Exam ENT Exam: Normal Exam - Neck Exam Neck Exam: Normal Inspection - Respiratory Exam Respiratory Exam: Clear to Ausculation Bilateral - Cardiovascular Exam Cardiovascular Exam: REGULAR RHYTHM - GI/Abdominal Exam GI & Abdominal Exam: Soft, Tenderness (tenderness LLQ with guarding , rebound (-)) - Extremities Exam Extremities Exam: Normal Inspection - Back Exam Back Exam: NORMAL INSPECTION - Neurological Exam Neurological Exam: Alert, Oriented x3 Additional comments: weakness R L L/E - Psychiatric Exam Psychiatric exam: Normal Affect, Normal Mood - Skin Skin Exam: Warm Assessment and Plan (1) Weakness Status: Acute (2) Abdominal pain, LLQ Status: Acute (3) Hypokalemic periodic paralysis Status: Acute (4) Hypertension Status: Chronic - Assessment and Plan (Free Text) Plan: weakness R L L/E improved , ambulating with PT , new develop of LLQ abdominal pain. Patient on bed rest , no PT , NPO , CT Abdomen- Pelvis.
[2017-07-19 16:48] VITALS: BP 122/62; PULSE 66; O2SAT 97
[2017-07-19] MEDS: Metoprolol Succinate 25 mg XL Tab PO SCH (17:48)
== END 2017-07-19 18:40 | disposition short-term general hospital (02) | DRG 93 ==
LOC: H.TCU 16:47
PROVIDERS: ADMIT Internal Medicine Pulmonary Disease; ATTEND Internal Medicine Pulmonary Disease
DX: G72.3 Periodic paralysis (principal); E03.9 Hypothyroidism, unspecified; E78.00 Pure hypercholesterolemia, unspecified; E87.6 Hypokalemia; Z86.73 Personal history of transient ischemic attack (TIA), and cerebral infarction without residual deficits; I10 Essential (primary) hypertension; Z90.49 Acquired absence of other specified parts of digestive tract; J40 Bronchitis, not specified as acute or chronic; M54.9 Dorsalgia, unspecified; R10.32 Left lower quadrant pain

== ENCOUNTER 2017-07-19 18:51 | Inpatient (IN) | payer MEDICARE, OTHER ==
[2017-07-19] MEDS ORDERED: Piperacillin/Tazobact 3.375 GM in Sodium Chloride 0.9% 100 ML IVPB STA (19:24)
[2017-07-19 19:25] VITALS: BMI 25.7
[2017-07-19] MEDS ORDERED: Sodium Chloride 0.9% 1,000 ML IV SCH (19:30)
--- NOTE | 2017-07-19 19:32 | ED PDOC ---
HPI: Abdomen Time Seen by Provider: 07/19/17 19:16 Chief Complaint (Provider): ABD PAIN History Per: Patient History/Exam Limitations: no limitations Additional Complaint(s): Pt. with abd pain left lower. Started today. Was in TCU recovering and getting therapy for weakness and extremity issues. Pt. not weak currently. No dysuria. No headachess, dizziness, chest pain, fever. Sent to ER as her ct scan showed colitis. Dr. Mario sent for admit. Past Medical History Reviewed: Nursing Documentation, Vital Signs - Medical History PMH: Back Problems, Bronchitis, HTN, Hypercholesterolemia, Hypothyroidism, TIA Denies: HIV, Chronic Kidney Disease - Surgical History Surgical History: Appendectomy - Family History Family History: States: Unknown Family Hx - Living Arrangements Living Arrangements: With Family - Social History Current smoker - smoking cessation education provided: No Alcohol: None Drugs: Denies - Immunization History Hx Tetanus Toxoid Vaccination: No Hx Influenza Vaccination: No - Home Medications Home Medications: Ambulatory Orders Medication Instructions Recorded Aspirin [Ecotrin] 81 mg PO DAILY 07/12/17 Levothyroxine [Synthroid] 75 mcg PO DAILY 07/12/17 Metoprolol Succinate [Toprol XL] 25 mg PO QPM 07/12/17 Zolpidem [Ambien] 10 mg PO HS PRN 07/12/17 cycloSPORINE [Restasis] 1 drop EACHEYE Q12H 07/12/17 Acetaminophen [Tylenol 325mg tab] 650 mg PO Q6 PRN tab 07/15/17 Aspirin [Ecotrin] 81 mg PO DAILY [facility] 07/15/17 cycloSPORINE [Restasis] 1 drop EACHEYE Q12H 07/15/17 - Allergies Allergies/Adverse Reactions: Allergies Allergy/AdvReac Type Severity Reaction Status Date / Time codeine Allergy DIZZINESS Verified 07/15/17 17:36 fentanyl Allergy DIZZINESS Verified 07/15/17 15:00 morphine Allergy DIZZINESS Verified 07/15/17 15:00 moxifloxacin HCl Allergy RASH Verified 07/15/17 15:00 [From Avelox] shellfish derived Allergy ANAPHYLAXIS Verified 07/15/17 15:00 tramadol HCl [From Ultram] Allergy DIZZINESS Verified 07/15/17 15:00 Review of Systems ROS Statement: Except As Marked, All Systems Reviewed And Found Negative Gastrointestinal: Positive for: Abdominal Pain Physical Exam - Reviewed Nursing Documentation Reviewed: Yes Vital Signs Reviewed: Yes - Physical Exam Appears: Positive for: Non-toxic, No Acute Distress Head Exam: Positive for: ATRAUMATIC, NORMAL INSPECTION, NORMOCEPHALIC Skin: Positive for: Normal Color, Warm, DRY Eye Exam: Positive for: EOMI, Normal appearance, PERRL ENT: Positive for: Normal ENT Inspection Neck: Positive for: Normal, Painless ROM Cardiovascular/Chest: Positive for: Regular Rate, Rhythm Respiratory: Positive for: CNT, Normal Breath Sounds Gastrointestinal/Abdominal: Positive for: Bowel Sounds, Soft, Tenderness (LLQ) Back: Positive for: Normal Inspection. Negative for: L CVA Tenderness, R CVA Tenderness Extremity: Positive for: Normal ROM. Negative for: Tenderness, Pedal Edema Neurologic/Psych: Positive for: Alert, Oriented - CT Scan/US ct Other Rad Studies (CT/US): Read By Radiologist Other Rad Interpretation: colitis - Progress ED Course And Treament: 193: Spoke with Dr. Mario. Pt. well known to him. Will admit medsurg and give further orders on the floor. Pt. aaox3. Disposition - Clinical Impression Clinical Impression: Colitis - Patient ED Disposition Is Patient to be Admitted: Yes Counseled Patient/Family Regarding: Studies Performed, Diagnosis - Disposition Disposition Time: 19:36 Condition: FAIR - Pt Status Changed To: Hospital Disposition Of: Inpatient - Admit Certification Admit to Inpatient:: After my assessment, the patient will require hospitalization for at least two midnights. This is because of the severity of symptoms shown, intensity of services needed, and/or the medical risk in this patient being treated as an outpatient. - POA Present On Arrival: None
[2017-07-19 19:55] LABS: VENOUS BLOOD GAS BASE EXCESS 9.3 mmol/L (0.0-2.0); VENOUS BLOOD GAS PCO2 55 mmHg (40-60); VENOUS BLOOD GAS PO2 24 mm/Hg (30-55); VENOUS BLOOD PH 7.42 (7.32-7.43)
[2017-07-19 20:05] LABS: BASO % 0.7 % (0.0-2.0); EOS # 0.1 K/uL (0.0-0.7); EOS % 2.5 % (0.0-4.0); HEMOGLOBIN 11.4 g/dL (12.0-16.0); LYMPH % 19.2 % (20.0-40.0); MEAN CELL VOLUME 85.3 fl (81.0-99.0); MEAN CORPUSCULAR HEMOGLOBIN 27.8 pg (27.0-31.0); MEAN CORPUSCULAR HGB CONC 32.5 g/dL (33.0-37.0); MEAN PLATELET VOLUME 8.3 fl (7.2-11.7); MONO # 0.5 K/uL (0.0-0.8); MONO % 9.1 % (0.0-10.0); NEUT # 3.7 K/uL (1.8-7.0); NEUT % 68.5 % (50.0-75.0); RBC 4.12 Mil/uL (3.80-5.20); RED CELL DISTRIBUTION WIDTH 13.7 % (11.5-14.5); WHITE BLOOD COUNT 5.4 K/uL (4.8-10.8)
[2017-07-19 20:20] LABS: INR 1.1 (0.9-1.2); PARTIAL THROMBOPLASTIN TIME 28.5 Seconds (25.6-37.1); PROTHROMBIN TIME 12.3 Seconds (9.8-13.1)
[2017-07-19 20:23] LABS: ALB/GLOB RATIO 1.2 (1.0-2.1); ALBUMIN 3.9 g/dL (3.5-5.0); ALT/SGPT 39 U/L (9-52); AST/SGOT 35 U/L (14-36); BLOOD UREA NITROGEN 10 mg/dl (7-17); CALCIUM 8.9 mg/dL (8.4-10.2); GFR AFRICAN-AMERICAN > 60; GFR NON-AFRICAN AMERICAN > 60; MAGNESIUM 2.6 MG/DL (1.6-2.3)
[2017-07-19] MEDS: Dextrose 5%/0.45% NS 1,000 ML IV SCH (22:56)
[2017-07-19] MEDS ORDERED: Patient's Own Med (Cyclosporine [Restasis] 1 DROP) EACHEYE SCH (23:00)
[2017-07-20] MEDS: metroNIDAZOLE 500mg/100ml NS 100 ML IVPB SCH ×3 (01:24→18:09)
[2017-07-20] MEDS: Piperacillin/Tazobact 2.25 GM in Sodium Chloride 0.9% 50 ML IVPB SCH ×2 (04:31→04:34)
[2017-07-20] MEDS: Piperacillin/Tazobact 3.375 GM in Sodium Chloride 0.9% 100 ML IVPB SCH ×4 (04:41→22:30)
[2017-07-20] MEDS: Levothyroxine 75 MCG TAB PO SCH (06:12)
[2017-07-20 06:36] LABS: BASO % 0.8 % (0.0-2.0); EOS # 0.2 K/uL (0.0-0.7); EOS % 3.5 % (0.0-4.0); LYMPH % 22.1 % (20.0-40.0); MEAN CELL VOLUME 84.2 fl (81.0-99.0); MEAN CORPUSCULAR HGB CONC 34.4 g/dL (33.0-37.0); MEAN PLATELET VOLUME 8.2 fl (7.2-11.7); MONO # 0.4 K/uL (0.0-0.8); MONO % 7.6 % (0.0-10.0); NEUT # 3.1 K/uL (1.8-7.0); RBC 3.79 Mil/uL (3.80-5.20); RED CELL DISTRIBUTION WIDTH 13.9 % (11.5-14.5); WHITE BLOOD COUNT 4.6 K/uL (4.8-10.8)
[2017-07-20 06:50] LABS: ALBUMIN 3.3 g/dL (3.5-5.0); ALT/SGPT 39 U/L (9-52); AST/SGOT 32 U/L (14-36); BLOOD UREA NITROGEN 8 mg/dl (7-17); CALCIUM 8.6 mg/dL (8.4-10.2); GFR AFRICAN-AMERICAN > 60; GFR NON-AFRICAN AMERICAN > 60
[2017-07-20 06:59] LABS: ALB/GLOB RATIO 1.2 (1.0-2.1)
--- NOTE | 2017-07-20 08:39 | RAD ---
HISTORY: Sepsis Patient COMPARISON: Chest radiograph 07/12/2017. FINDINGS: LUNGS: No active pulmonary disease. PLEURA: No significant pleural effusion identified, no pneumothorax apparent. CARDIOVASCULAR: Normal. OSSEOUS STRUCTURES: No significant abnormalities. VISUALIZED UPPER ABDOMEN: Normal. OTHER FINDINGS: None. IMPRESSION: No interval acute cardiopulmonary disease appreciated.
[2017-07-20 08:42] LABS: SQUAMOUS EPITHIAL < 1 /hpf (0-5); URINE BACTERIA RARE (<OCC); URINE BILIRUBIN NEGATIVE (NEGATIVE); URINE BLOOD NEGATIVE (NEGATIVE); URINE CLARITY CLEAR (Clear); URINE COLOR STRAW (YELLOW); URINE GLUCOSE (UA) NEG (Normal); URINE LEUKOCYTE ESTERASE NEG Leu/uL (Negative); URINE NITRATE NEGATIVE (NEGATIVE); URINE PROTEIN NEGATIVE (NEGATIVE); URINE UROBILINOGEN 0.2-1.0 mg/dL (0.2-1.0)
[2017-07-20] MEDS: Dextrose 5%/0.45% NS 1,000 ML IV SCH ×2 (09:11→22:17)
[2017-07-20] MEDS ORDERED: Vitamin A/D oint 60G TP PRN (09:52)
[2017-07-20] MEDS: Enoxaparin 40 mg Syringe SC SCH (12:48)
--- NOTE | 2017-07-20 16:29 | CP.PCM.HP ---
History of Present Illness - History of Present Illness History of Present Illness: CC: Abdominal pain. 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 On 07/15/17, Pt status improved and was transferred to TCU for PT, OT to maximize muscles strength. On 07/19/17 while in rehab, weakness improved, but Pt start c/o abdominal pain LLQ, pain was cramping, mild to moderate, intensity 3-4:10, Pt was sent to ED for evaluation. Ct Abd/Pelvis was done showing severe inflammatory changes, + Colitis. There after Pt was admitted to Med-Surgical floor for further management. Pt denied: N/V/D , Fever, chills, Dysuria, Hematuria, CP, palpitations, dizziness, SOB, cough, sick contact. EKG shows: No active disease. Present on Admission - Present on Admission Any Indicators Present on Admission: No Review of Systems - Constitutional Constitutional: Other (negative) - EENT Eyes: Other Visual Disturbances Ears: Other (negative) Nose/Mouth/Throat: Other (negative) - Cardiovascular Cardiovascular: Other (negative) - Respiratory Respiratory: Other (negative) - Gastrointestinal Gastrointestinal: Abdominal Pain (LLQ) - Genitourinary Genitourinary: Other (negATIVE) - Musculoskeletal Musculoskeletal: Back Pain - Integumentary Integumentary: Other (NEGATIVE) - Neurological Neurological: Other (weakness L/E) - Psychiatric Psychiatric: Other (negative) - Endocrine Endocrine: Other (negative) - Hematologic/Lymphatic Hematologic: Other (negative) Past Patient History - Past Medical History & Family History Past Medical History?: Yes Pertinent Family History: Unknown - Past Social History Smoking Status: Never Smoked Alcohol: None Drugs: Denies Home Situation {Lives}: With Family - CARDIAC Hx Cardiac Disorders: Yes Hx Hypercholesterolemia: Yes Hx Hypertension: Yes - PULMONARY Hx Respiratory Disorders: Yes Hx Bronchitis: Yes - NEUROLOGICAL Hx Neurological Disorder: Yes Hx Transient Ischemic Attacks (TIA): Yes Other/Comment: Hypokalemic periodic paralysis - HEENT Hx HEENT Problems: Yes Other/Comment: Pt reports on and off episodes of losing half her visual osborn after a TIA (loses vision on right side) - RENAL Hx Chronic Kidney Disease: No - ENDOCRINE/METABOLIC Hx Endocrine Disorders: Yes Hx Hypothyroidism: Yes - HEMATOLOGICAL/ONCOLOGICAL Hx Blood Disorders: No Hx Human Immunodeficiency Virus (HIV): No - INTEGUMENTARY Hx Dermatological Problems: No - MUSCULOSKELETAL/RHEUMATOLOGICAL Hx Musculoskeletal Disorders: No Hx Falls: No - GASTROINTESTINAL Hx Gastrointestinal Disorders: No - GENITOURINARY/GYNECOLOGICAL Hx Genitourinary Disorders: No - PSYCHIATRIC Hx Psychophysiologic Disorder: No Hx Substance Use: No - SURGICAL HISTORY Hx Surgeries: Yes Hx Appendectomy: Yes - ANESTHESIA Hx Anesthesia: Yes Hx Anesthesia Reactions: No Hx Malignant Hyperthermia: No Meds Allergies/Adverse Reactions: Allergies Allergy/AdvReac Type Severity Reaction Status Date / Time codeine Allergy DIZZINESS Verified 07/15/17 17:36 fentanyl Allergy DIZZINESS Verified 07/15/17 15:00 morphine Allergy DIZZINESS Verified 07/15/17 15:00 moxifloxacin HCl Allergy RASH Verified 07/15/17 15:00 [From Avelox] shellfish derived Allergy ANAPHYLAXIS Verified 07/15/17 15:00 tramadol HCl [From Ultram] Allergy DIZZINESS Verified 07/15/17 15:00 Physical Exam - Constitutional Appears: No Acute Distress - Head Exam Head Exam: NORMAL INSPECTION - Eye Exam Eye Exam: PERRL - ENT Exam ENT Exam: Normal Exam - Neck Exam Neck exam: Positive for: Normal Inspection - Respiratory Exam Respiratory Exam: Clear to Auscultation Bilateral - Cardiovascular Exam Cardiovascular Exam: REGULAR RHYTHM - GI/Abdominal Exam GI & Abdominal Exam: Normal Bowel Sounds, Tenderness (mild). absent: Guarding, Rebound - Extremities Exam Extremities exam: Positive for: normal inspection - Back Exam Back exam: NORMAL INSPECTION - Neurological Exam Neurological exam: Alert, CN II-XII Intact, Oriented x3 Additional comments: Patient moves well all extremities against gravity , gait not tested , sensory grossly no deficit - Psychiatric Exam Psychiatric exam: Normal Affect, Normal Mood - Skin Skin Exam: Warm Results - Vital Signs Recent Vital Signs: Last Vital Signs Temp 97.8 F 07/20/17 16:20 Pulse 63 07/20/17 16:20 Resp 17 07/20/17 16:20 BP 115/71 07/20/17 16:20 Pulse Ox 96 07/20/17 16:20 reviewed Collins - Labs Result Diagrams: 07/20/17 06:15 07/20/17 06:15 Labs: Laboratory Results - last 24 hr 07/19/17 07/19/17 07/19/17 07:26 19:40 19:40 WBC 5.4 RBC 4.12 Hgb 11.4 L Hct 35.1 MCV 85.3 MCH 27.8 MCHC 32.5 L RDW 13.7 Plt Count 229 MPV 8.3 Neut % (Auto) 68.5 Lymph % (Auto) 19.2 L [place] % (Auto) 9.1 Eos % (Auto) 2.5 Baso % (Auto) 0.7 Neut # 3.7 Lymph # 1.0 Hart # 0.5 Eos # 0.1 Baso # 0.0 PT INR APTT pO2 VBG pH VBG pCO2 VBG HCO3 VBG Total CO2 VBG O2 Sat (Calc) VBG Base Excess VBG Potassium Glucose Lactate FiO2 Sodium 141 Potassium 4.3 Chloride 103 Carbon Dioxide 31 H Anion Gap 11 BUN 10 Creatinine 0.7 Est GFR ( Amer) > 60 Est GFR (Non-Af Amer) > 60 Random Glucose 87 Calcium 8.9 Phosphorus 3.5 Magnesium 2.6 H Total Bilirubin 0.5 AST 35 ALT 39 Alkaline Phosphatase 74 Total Protein 7.0 Albumin 3.9 Globulin 3.1 Albumin/Globulin Ratio 1.2 Free T4 TSH 3rd Generation Venous Blood Potassium Urine Color Straw Urine Clarity Clear Urine pH 7.0 Ur Specific [place] < 1.005 Urine Protein Negative Urine Glucose (UA) Neg Urine Ketones Negative Urine Blood Negative Urine Nitrate Negative Urine Bilirubin Negative Urine Urobilinogen 0.2-1.0 Ur Leukocyte Esterase Neg Urine RBC (Auto) 1 Urine Microscopic WBC < 1 Ur Squamous Epith Cells < 1 Urine Bacteria Rare 07/19/17 07/19/17 07/20/17 19:40 19:50 06:15 WBC 4.6 L RBC 3.79 L Hgb 11.0 L Hct 31.9 L MCV 84.2 MCH 29.0 MCHC 34.4 RDW 13.9 Plt Count 210 MPV 8.2 Neut % (Auto) 66.0 Lymph % (Auto) 22.1 [place] % (Auto) 7.6 Eos % (Auto) 3.5 Baso % (Auto) 0.8 Neut # 3.1 Lymph # 1.0 Hart # 0.4 Eos # 0.2 Baso # 0.0 PT 12.3 INR 1.1 APTT 28.5 pO2 24 L VBG pH 7.42 VBG pCO2 55 VBG HCO3 30.7 VBG Total CO2 37.4 H VBG O2 Sat (Calc) 42.8 VBG Base Excess 9.3 H VBG Potassium 4.8 Glucose 88 Lactate 1.2 FiO2 23.0 Sodium 140.0 Potassium Chloride 107.0 Carbon Dioxide Anion Gap BUN Creatinine Est GFR ( Amer) Est GFR (Non-Af Amer) Random Glucose Calcium Phosphorus Magnesium Total Bilirubin AST ALT Alkaline Phosphatase Total Protein Albumin Globulin Albumin/Globulin Ratio Free T4 TSH 3rd Generation Venous Blood Potassium 4.8 Urine Color Urine Clarity Urine pH Ur Specific [place] Urine Protein Urine Glucose (UA) Urine Ketones Urine Blood Urine Nitrate Urine Bilirubin Urine Urobilinogen Ur Leukocyte Esterase Urine RBC (Auto) Urine Microscopic WBC Ur Squamous Epith Cells Urine Bacteria 07/20/17 07/20/17 06:15 06:15 WBC RBC Hgb Hct MCV MCH MCHC RDW Plt Count MPV Neut % (Auto) Lymph % (Auto) [place] % (Auto) Eos % (Auto) Baso % (Auto) Neut # Lymph # Hart # Eos # Baso # PT INR APTT pO2 VBG pH VBG pCO2 VBG HCO3 VBG Total CO2 VBG O2 Sat (Calc) VBG Base Excess VBG Potassium Glucose Lactate FiO2 Sodium 143 Potassium 4.2 Chloride 106 Carbon Dioxide 31 H Anion Gap 10 BUN 8 Creatinine 0.8 Est GFR ( Amer) > 60 Est GFR (Non-Af Amer) > 60 Random Glucose 106 H Calcium 8.6 Phosphorus Magnesium Total Bilirubin 0.5 AST 32 ALT 39 Alkaline Phosphatase 66 Total Protein 6.1 L Albumin 3.3 L Globulin 2.8 Albumin/Globulin Ratio 1.2 Free T4 0.82 TSH 3rd Generation 0.64 Venous Blood Potassium Urine Color Urine Clarity Urine pH Ur Specific [place] Urine Protein Urine Glucose (UA) Urine Ketones Urine Blood Urine Nitrate Urine Bilirubin Urine Urobilinogen Ur Leukocyte Esterase Urine RBC (Auto) Urine Microscopic WBC Ur Squamous Epith Cells Urine Bacteria reviewed J.P. - Imaging and Cardiology Chest x-ray Status: Report reviewed by me (J.P.) CT scan - pelvis Status: Report reviewed by me (J.P.) CT scan - abdomen Status: Report reviewed by me (Violetta.P.) Assessment & Plan (1) Colitis Status: Acute Priority: High (2) Abdominal pain, LLQ Status: Acute Priority: High (3) HTN (hypertension) Status: Chronic Priority: Medium (4) Hypothyroidism Status: Acute (5) Hx of seizure disorder Status: Chronic Priority: Medium (6) Hx-TIA (transient ischemic attack) Status: Acute - Assessment and Plan (Free Text) Plan: F/U EKG, Blood, Urine and Stool C-S, Continue with Vanco, Zosyn, Flagyl, Lovenox , Ecotrin and rest of Tx, GI, ID consult. - Date & Time Date: 07/20/17 Time: 11:30
[2017-07-20] MEDS ORDERED: Metoprolol Succinate 25 mg XL Tab PO SCH ×2 (18:00)
--- NOTE | 2017-07-20 18:22 | CP.PCM.CON ---
History of Present Illness - History of Present Illness History of Present Illness: iv antibiotics in progress will follow Past Patient History - Past Medical History & Family History Past Medical History?: Yes - Past Social History Smoking Status: Never Smoked - CARDIAC Hx Cardiac Disorders: Yes Hx Hypercholesterolemia: Yes Hx Hypertension: Yes - PULMONARY Hx Respiratory Disorders: Yes Hx Bronchitis: Yes - NEUROLOGICAL Hx Neurological Disorder: Yes Hx Transient Ischemic Attacks (TIA): Yes - HEENT Hx HEENT Problems: Yes Other/Comment: Pt reports on and off episodes of losing half her visual osborn after a TIA (loses vision on right side) - RENAL Hx Chronic Kidney Disease: No - ENDOCRINE/METABOLIC Hx Endocrine Disorders: Yes Hx Hypothyroidism: Yes - HEMATOLOGICAL/ONCOLOGICAL Hx Blood Disorders: No Hx Human Immunodeficiency Virus (HIV): No - INTEGUMENTARY Hx Dermatological Problems: No - MUSCULOSKELETAL/RHEUMATOLOGICAL Hx Musculoskeletal Disorders: No Hx Falls: No - GASTROINTESTINAL Hx Gastrointestinal Disorders: No - GENITOURINARY/GYNECOLOGICAL Hx Genitourinary Disorders: No - PSYCHIATRIC Hx Psychophysiologic Disorder: No Hx Substance Use: No - SURGICAL HISTORY Hx Surgeries: Yes Hx Appendectomy: Yes - ANESTHESIA Hx Anesthesia: Yes Hx Anesthesia Reactions: No Hx Malignant Hyperthermia: No Meds Allergies/Adverse Reactions: Allergies Allergy/AdvReac Type Severity Reaction Status Date / Time codeine Allergy DIZZINESS Verified 07/15/17 17:36 fentanyl Allergy DIZZINESS Verified 07/15/17 15:00 morphine Allergy DIZZINESS Verified 07/15/17 15:00 moxifloxacin HCl Allergy RASH Verified 07/15/17 15:00 [From Avelox] shellfish derived Allergy ANAPHYLAXIS Verified 07/15/17 15:00 tramadol HCl [From Ultram] Allergy DIZZINESS Verified 07/15/17 15:00 - Medications Medications: Current Medications Acetaminophen (Tylenol 325mg Tab) 650 mg PO Q6 PRN PRN Reason: Pain, moderate (4-7) Aspirin (Ecotrin) 81 mg PO DAILY [facility] Last Admin: 07/20/17 09:11 Dose: 81 mg Enoxaparin Sodium (Lovenox) 40 mg SC DAILY [facility] PRN Reason: Protocol Last Admin: 07/20/17 12:48 Dose: 40 mg Home Med (Cyclosporine [Restasis]) 1 drop EACHEYE Q12H [facility] Dextrose/Sodium Chloride (Dextrose 5%/0.45% Ns 1000 Ml) 1,000 mls @ 90 mls/hr IV .Q11H7M [facility] Stop: 07/20/17 22:40 Last Admin: 07/20/17 09:11 Dose: Not Given Metronidazole (Flagyl 500mg/100ml Ns) 100 mls @ 100 mls/hr IVPB Q8 KRISTI PRN Reason: Protocol Last Admin: 07/20/17 18:09 Dose: 100 mls/hr Vancomycin HCl 1 gm/ Sodium (Chloride) 250 mls @ 166.667 mls/hr IVPB Q12 KRISTI PRN Reason: Protocol Last Admin: 07/20/17 09:12 Dose: 166.667 mls/hr Piperacillin Sod/Tazobactam (Sod 3.375 gm/ Sodium Chloride) 100 mls @ 100 mls/ hr IVPB Q6 KRISTI PRN Reason: Protocol Last Admin: 07/20/17 18:09 Dose: 100 mls/hr Levothyroxine Sodium (Synthroid) 75 mcg PO DAILY@0630 [facility] Last Admin: 07/20/17 06:12 Dose: 75 mcg Metoprolol Succinate (Toprol Xl) 25 mg PO QPM [facility] Last Admin: 07/20/17 18:11 Dose: 25 mg Ondansetron HCl (Zofran Inj) 4 mg IVP Q4 PRN PRN Reason: Nausea/Vomiting Last Admin: 07/20/17 10:10 Dose: 4 mg Vitamin A (Vitamin A&D) 1 applic TP Q8 PRN PRN Reason: Dry skin Last Admin: 07/20/17 12:48 Dose: 1 applic Zolpidem Tartrate (Ambien) 5 mg PO HS PRN PRN Reason: Insomnia Results - Vital Signs Recent Vital Signs: Last Vital Signs Temp 97.8 F 07/20/17 16:20 Pulse 63 07/20/17 18:11 Resp 17 07/20/17 16:20 BP 115/17 L 07/20/17 18:11 Pulse Ox 96 07/20/17 16:20 - Labs Result Diagrams: 07/20/17 06:15 07/20/17 06:15 Labs: Laboratory Results - last 24 hr 07/19/17 07/19/17 07/19/17 07:26 19:40 19:40 WBC 5.4 RBC 4.12 Hgb 11.4 L Hct 35.1 MCV 85.3 MCH 27.8 MCHC 32.5 L RDW 13.7 Plt Count 229 MPV 8.3 Neut % (Auto) 68.5 Lymph % (Auto) 19.2 L [place] % (Auto) 9.1 Eos % (Auto) 2.5 Baso % (Auto) 0.7 Neut # 3.7 Lymph # 1.0 [place] # 0.5 Eos # 0.1 Baso # 0.0 PT INR APTT pO2 VBG pH VBG pCO2 VBG HCO3 VBG Total CO2 VBG O2 Sat (Calc) VBG Base Excess VBG Potassium Glucose Lactate FiO2 Sodium 141 Potassium 4.3 Chloride 103 Carbon Dioxide 31 H Anion Gap 11 BUN 10 Creatinine 0.7 Est GFR ( Amer) > 60 Est GFR (Non-Af Amer) > 60 Random Glucose 87 Calcium 8.9 Phosphorus 3.5 Magnesium 2.6 H Total Bilirubin 0.5 AST 35 ALT 39 Alkaline Phosphatase 74 Total Protein 7.0 Albumin 3.9 Globulin 3.1 Albumin/Globulin Ratio 1.2 Free T4 TSH 3rd Generation Venous Blood Potassium Urine Color Straw Urine Clarity Clear Urine pH 7.0 Ur Specific [place] < 1.005 Urine Protein Negative Urine Glucose (UA) Neg Urine Ketones Negative Urine Blood Negative Urine Nitrate Negative Urine Bilirubin Negative Urine Urobilinogen 0.2-1.0 Ur Leukocyte Esterase Neg Urine RBC (Auto) 1 Urine Microscopic WBC < 1 Ur Squamous Epith Cells < 1 Urine Bacteria Rare 07/19/17 07/19/17 07/20/17 19:40 19:50 06:15 WBC 4.6 L RBC 3.79 L Hgb 11.0 L Hct 31.9 L MCV 84.2 MCH 29.0 MCHC 34.4 RDW 13.9 Plt Count 210 MPV 8.2 Neut % (Auto) 66.0 Lymph % (Auto) 22.1 [place] % (Auto) 7.6 Eos % (Auto) 3.5 Baso % (Auto) 0.8 Neut # 3.1 Lymph # 1.0 [place] # 0.4 Eos # 0.2 Baso # 0.0 PT 12.3 INR 1.1 APTT 28.5 pO2 24 L VBG pH 7.42 VBG pCO2 55 VBG HCO3 30.7 VBG Total CO2 37.4 H VBG O2 Sat (Calc) 42.8 VBG Base Excess 9.3 H VBG Potassium 4.8 Glucose 88 Lactate 1.2 FiO2 23.0 Sodium 140.0 Potassium Chloride 107.0 Carbon Dioxide Anion Gap BUN Creatinine Est GFR ( Amer) Est GFR (Non-Af Amer) Random Glucose Calcium Phosphorus Magnesium Total Bilirubin AST ALT Alkaline Phosphatase Total Protein Albumin Globulin Albumin/Globulin Ratio Free T4 TSH 3rd Generation Venous Blood Potassium 4.8 Urine Color Urine Clarity Urine pH Ur Specific [place] Urine Protein Urine Glucose (UA) Urine Ketones Urine Blood Urine Nitrate Urine Bilirubin Urine Urobilinogen Ur Leukocyte Esterase Urine RBC (Auto) Urine Microscopic WBC Ur Squamous Epith Cells Urine Bacteria 07/20/17 07/20/17 06:15 06:15 WBC RBC Hgb Hct MCV MCH MCHC RDW Plt Count MPV Neut % (Auto) Lymph % (Auto) [place] % (Auto) Eos % (Auto) Baso % (Auto) Neut # Lymph # [place] # Eos # Baso # PT INR APTT pO2 VBG pH VBG pCO2 VBG HCO3 VBG Total CO2 VBG O2 Sat (Calc) VBG Base Excess VBG Potassium Glucose Lactate FiO2 Sodium 143 Potassium 4.2 Chloride 106 Carbon Dioxide 31 H Anion Gap 10 BUN 8 Creatinine 0.8 Est GFR ( Amer) > 60 Est GFR (Non-Af Amer) > 60 Random Glucose 106 H Calcium 8.6 Phosphorus Magnesium Total Bilirubin 0.5 AST 32 ALT 39 Alkaline Phosphatase 66 Total Protein 6.1 L Albumin 3.3 L Globulin 2.8 Albumin/Globulin Ratio 1.2 Free T4 0.82 TSH 3rd Generation 0.64 Venous Blood Potassium Urine Color Urine Clarity Urine pH Ur Specific [place] Urine Protein Urine Glucose (UA) Urine Ketones Urine Blood Urine Nitrate Urine Bilirubin Urine Urobilinogen Ur Leukocyte Esterase Urine RBC (Auto) Urine Microscopic WBC Ur Squamous Epith Cells Urine Bacteria
--- NOTE | 2017-07-20 21:43 | CON ---
DATE: 07/20/2017 REFERRING DOCTOR: Wolf Mario MD REASON FOR CONSULTATION: Abdominal pain. HISTORY OF PRESENT ILLNESS: This is a 76-year-old female, transferred to the TCU, getting some rehab, found to have some discomfort in the left lower quadrant. Patient . Currently, patient feels better, lying in bed comfortably, in no apparent distress. PAST MEDICAL HISTORY: Includes hypertension, hypercholesterolemia, hypothyroidism, TIA. PAST SURGICAL HISTORY: Noncontributory. MEDICATIONS: Have been reviewed. REVIEW OF SYSTEMS: All other systems have been reviewed and negative apart from the HPI. PHYSICAL EXAMINATION: VITAL SIGNS: Reviewed in the hospital, grossly unremarkable. GENERAL: A pleasant elderly female, lying in bed comfortably, in no apparent distress. HEENT: Head: Normocephalic and atraumatic. Eyes: Pupils are equally reactive to light bilaterally. No conjunctival pallor or icterus. NECK: Supple. Normal range of motion. No lymphadenopathy appreciated. LUNGS: Coarse breath sounds bilaterally. HEART: S1 and S2. Regular rate and rhythm. No murmurs appreciated. ABDOMEN: Soft, nontender. Bowel sounds are present. No rebound. No guarding. EXTREMITIES: Pulses present bilaterally. SKIN: Warm, dry, and intact. NEUROLOGIC: A and O x3. LABORATORY DATA: Labs done were reviewed. CAT scan shows descending colon colitis. Labs revealed WBC 4.6, hemoglobin 11.0, hematocrit 31.9. ASSESSMENT: This is a 76-year-old female with colitis. From gastrointestinal standpoint, antibiotic a total of 10 to 14 days, advance diet as tolerated. Thank you for the consult. Mohsen Gutierres MD/ PhD cc: Wolf Mario MD
[2017-07-21 00:14] VITALS: RESP 18
[2017-07-21] MEDS: metroNIDAZOLE 500mg/100ml NS 100 ML IVPB SCH ×2 (01:19→09:26)
[2017-07-21] MEDS: Piperacillin/Tazobact 3.375 GM in Sodium Chloride 0.9% 100 ML IVPB SCH ×2 (04:46→09:27)
[2017-07-21] MEDS: Levothyroxine 75 MCG TAB PO SCH (06:59)
[2017-07-21 08:09] VITALS: BP 146/78; PULSE 54; TEMP 97.6; O2SAT 98
--- NOTE | 2017-07-21 09:17 | PQF GENQUE ---
This form is a permanent part of the medical record 07/21/17 Dr. Mario, Please clarify the type of Colitis if known after workup. Admitted with LLQ abdominal pain . CT : Severe inflammatory changes , + Colitis. Stool analysis pending. Treated with triple IVAB: Flagyl, Zosyn and Vancomycin Clarification of your documentation is requested to better reflect the severity of illness and intensity of treatment of your patient. Indicators present [] Specify: [] [] Specify: [] [] Specify: [] [] Specify: [] Location in the medical record that reflects the above clinical findings: [] Treatment Provided: [] PHYSICIAN'S RESPONSE Based on your medical judgment of the clinical indicators outlined above please clarify the following: [] Practitioner response [] If unable to determine, please check the box, sign and date. Present On Admission (POA) Indicator: [] Present at the time of admission [] Not present at the time of admission [] Clinically Undetermined In responding to this query, please exercise your independent professional judgment. The fact that a question is asked does not imply that any particular answer is desired or expected. Thank you for your clarification on this documentation. If you have any questions please call:[phone] * Thank you, Kristina Mullins RN CDMP [facility]
[2017-07-21] MEDS: Enoxaparin 40 mg Syringe SC SCH (09:27)
--- NOTE | 2017-07-21 09:48 | CP.PCM.PN ---
<Sandra Beverly - Last Filed: 07/21/17 15:20> Subjective - Date & Time of Evaluation Date of Evaluation: 07/21/17 Time of Evaluation: 08:00 - Subjective Subjective: No acute overnight events. Patient seen and examined at the bedside this morning. No complaints. Reports that abdominal pain has resolved. Having regular well formed BM. Tolerating liquid diet. Denies fever, chills, n/v, blood in stool, dysuria. Ambulating. Normal urination. Objective - Vital Signs/Intake and Output Vital Signs (last 24 hours): Temp Pulse Resp BP Pulse Ox 97.6 F 54 L 18 146/78 98 07/21/17 08:09 07/21/17 08:09 07/21/17 08:09 07/21/17 08:09 07/21/17 08:09 - Medications Medications: Current Medications Acetaminophen (Tylenol 325mg Tab) 650 mg PO Q6 PRN PRN Reason: Pain, moderate (4-7) Aspirin (Ecotrin) 81 mg PO DAILY [facility] Last Admin: 07/21/17 09:26 Dose: 81 mg Enoxaparin Sodium (Lovenox) 40 mg SC DAILY [facility] PRN Reason: Protocol Last Admin: 07/21/17 09:27 Dose: 40 mg Home Med (Cyclosporine [Restasis]) 1 drop EACHEYE Q12H [facility] Metronidazole (Flagyl 500mg/100ml Ns) 100 mls @ 100 mls/hr IVPB Q8 [facility]I PRN Reason: Protocol Last Admin: 07/21/17 09:26 Dose: 100 mls/hr Vancomycin HCl 1 gm/ Sodium (Chloride) 250 mls @ 166.667 mls/hr IVPB Q12 [facility]I PRN Reason: Protocol Last Admin: 07/21/17 09:26 Dose: 166.667 mls/hr Piperacillin Sod/Tazobactam (Sod 3.375 gm/ Sodium Chloride) 100 mls @ 100 mls/ hr IVPB Q6 [facility]I PRN Reason: Protocol Last Admin: 07/21/17 09:27 Dose: 100 mls/hr Levothyroxine Sodium (Synthroid) 75 mcg PO DAILY@0630 [facility] Last Admin: 07/21/17 06:59 Dose: 75 mcg Metoprolol Succinate (Toprol Xl) 25 mg PO QPM [facility] Last Admin: 07/20/17 18:11 Dose: 25 mg Ondansetron HCl (Zofran Inj) 4 mg IVP Q4 PRN PRN Reason: Nausea/Vomiting Last Admin: 07/20/17 10:10 Dose: 4 mg Vitamin A (Vitamin A&D) 1 applic TP Q8 PRN PRN Reason: Dry skin Last Admin: 07/20/17 12:48 Dose: 1 applic Zolpidem Tartrate (Ambien) 5 mg PO HS PRN PRN Reason: Insomnia - Labs Labs: 07/20/17 06:15 07/20/17 06:15 PT 12.3 Seconds (9.8-13.1) 07/19/17 19:40 INR 1.1 (0.9-1.2) 07/19/17 19:40 APTT 28.5 Seconds (25.6-37.1) 07/19/17 19:40 - Constitutional Appears: Well, No Acute Distress - Head Exam Head Exam: ATRAUMATIC, NORMAL INSPECTION - ENT Exam ENT Exam: Mucous Membranes Moist - Respiratory Exam Respiratory Exam: Clear to Ausculation Bilateral. absent: Rales, Wheezes - Cardiovascular Exam Cardiovascular Exam: REGULAR RHYTHM, +S1, +S2. absent: Murmur - GI/Abdominal Exam GI & Abdominal Exam: Soft, Normal Bowel Sounds. absent: Guarding, Rigid, Tenderness, Hernia, Organomegaly - Extremities Exam Extremities Exam: Normal Inspection. absent: Pedal Edema - Neurological Exam Neurological Exam: Alert, Awake, Normal Gait - Psychiatric Exam Psychiatric exam: Normal Affect, Normal Mood - Skin Skin Exam: Normal Color Assessment and Plan - Assessment and Plan (Free Text) Assessment: 76 y/o F, with multiple chronic disease who was in TCU for reconditioning secondary to hypokalemic periodic paralysis, now readmitted and being managed for Colitis as confirmed by CT. Currently in Med/Surg. No complaints of abdominal pain today. (1) Colitis, Acute - Pt no longer has LLQ pain - aferbrile, no leukocytosis - Abdominal CT: Severe inflammatory changes affecting proximal to descending colon suggesting colitis. No free air or drainable collection - GI consulted - ID consulted- okay to D/C on PO, outpatient colonoscopy - F/U Stool Cx, BCx, UCx, Fecal Leukocytosis, - C/w Vanco, Zosyn, and Flagyl - Vanco trough 20.2 (3) HTN (hypertension) -Normotensive -C/W Metropolol 25mg PO (4) Hypothyroidism -C/w Levothyroxine (5) Hx of seizure disorder -no acute seizure activity noted (6) Hx-TIA (transient ischemic attack) - C/W ASA (Ecotrin) -Diet- Liquid -DVT ppx : Lovenox, SCD's <Ernesto Addison - Last Filed: 07/21/17 17:15> Objective - Vital Signs/Intake and Output Vital Signs (last 24 hours): Temp Pulse Resp BP Pulse Ox 97.6 F 54 L 18 146/78 98 07/21/17 08:09 07/21/17 08:09 07/21/17 08:09 07/21/17 08:09 07/21/17 08:09 - Medications Medications: Current Medications Acetaminophen (Tylenol 325mg Tab) 650 mg PO Q6 PRN PRN Reason: Pain, moderate (4-7) Aspirin (Ecotrin) 81 mg PO DAILY [facility] Last Admin: 07/21/17 09:26 Dose: 81 mg Enoxaparin Sodium (Lovenox) 40 mg SC DAILY [facility] PRN Reason: Protocol Last Admin: 07/21/17 09:27 Dose: 40 mg Home Med (Cyclosporine [Restasis]) 1 drop EACHEYE Q12H [facility] Metronidazole (Flagyl 500mg/100ml Ns) 100 mls @ 100 mls/hr IVPB Q8 [facility] PRN Reason: Protocol Last Admin: 07/21/17 09:26 Dose: 100 mls/hr Vancomycin HCl 1 gm/ Sodium (Chloride) 250 mls @ 166.667 mls/hr IVPB Q12 [facility] PRN Reason: Protocol Last Admin: 07/21/17 09:26 Dose: 166.667 mls/hr Piperacillin Sod/Tazobactam (Sod 3.375 gm/ Sodium Chloride) 100 mls @ 100 mls/ hr IVPB Q6 [facility]I PRN Reason: Protocol Last Admin: 07/21/17 09:27 Dose: 100 mls/hr Levothyroxine Sodium (Synthroid) 75 mcg PO DAILY@0630 [facility] Last Admin: 07/21/17 06:59 Dose: 75 mcg Metoprolol Succinate (Toprol Xl) 25 mg PO QPM [facility] Last Admin: 07/20/17 18:11 Dose: 25 mg Ondansetron HCl (Zofran Inj) 4 mg IVP Q4 PRN PRN Reason: Nausea/Vomiting Last Admin: 07/20/17 10:10 Dose: 4 mg Vitamin A (Vitamin A&D) 1 applic TP Q8 PRN PRN Reason: Dry skin Last Admin: 07/20/17 12:48 Dose: 1 applic Zolpidem Tartrate (Ambien) 5 mg PO HS PRN PRN Reason: Insomnia - Labs Labs: 07/20/17 06:15 07/20/17 06:15 PT 12.3 Seconds (9.8-13.1) 07/19/17 19:40 INR 1.1 (0.9-1.2) 07/19/17 19:40 APTT 28.5 Seconds (25.6-37.1) 07/19/17 19:40 Assessment and Plan - Assessment and Plan (Free Text) Plan: Patient discharged home today, please see discharge summary for further details
--- NOTE | 2017-07-21 12:41 | CP.PCM.CON ---
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 On 07/15/17, Pt status improved and was transferred to TCU for PT, OT to maximize muscles strength. On 07/19/17 while in rehab, weakness improved, but Pt start c/o abdominal pain LLQ, pain was cramping, mild to moderate, intensity 3-4:10, Pt was sent to ED for evaluation. Ct Abd/Pelvis was done showing severe inflammatory changes, + Colitis. There after Pt was admitted to Med-Surgical floor for further management. Pt denied: N/V/D , Fever, chills, Dysuria, Hematuria, CP, palpitations, dizziness, SOB, cough, sick contact. ID consulted cdiff neg rx in progress Review of Systems - Review of Systems All systems: reviewed and no additional remarkable complaints except - Constitutional Constitutional: As Per HPI - EENT Eyes: absent: As Per HPI, Blind Spots, Blurred Vision, Change in Vision, Decreased Night Vision, Diplopia, Discharge, Dry Eye, Exophthalmos, Floaters, Irritation, Itchy Eyes, Loss of Peripheral Vision, Pain, Photophobia, Requires Corrective Lenses, Sees Flashes, Spots in Vision, Tunnel Vision, Other Visual Disturbances, Loss of Vision, Other Ears: absent: As Per HPI, Decreased Hearing, Ear Discharge, Ear Pain, Tinnitus, Abnormal Hearing, Disequilibrium, Dizziness, Other Nose/Mouth/Throat: absent: As Per HPI, Epistaxis, Nasal Congestion, Nasal Discharge, Nasal Obstruction, Nasal Trauma, Nose Pain, Post Nasal Drip, Sinus Pain, Sinus Pressure, Bleeding Gums, Change in Voice, Dental Pain, Dry Mouth, Dysphagia, Halitosis, Hoarsness, Lip Swelling, Mouth Lesions, Mouth Pain, Odynophagia, Sore Throat, Throat Swelling, Tongue Swelling, Facial Pain, Neck Pain, Neck Mass, Other - Breasts Breasts: absent: As Per HPI, Change in Shape, Mass, Pain, Nipple Discharge, Nipple Inversion, Skin Changes, Swelling, Other - Cardiovascular Cardiovascular: absent: As Per HPI, Acrocyanosis, Chest Pain, Chest Pain at Rest , Chest Pain with Activity, Claudication, Diaphoresis, Dyspnea, Dyspnea on Exertion, Edema, Irregular Heart Rhythm, Pain Radiating to Arm/Neck/Jaw, Leg Edema, Leg Ulcers, Lightheadedness, Orthopnea, Palpitations, Paroxysmal Nocturnal Dyspnea, Pedal Edema, Radiating Pain, Rapid Heart Rate, Slow Heart Rate, Syncope, Other - Respiratory Respiratory: absent: As Per HPI, Cough, Dyspnea, Hemoptysis, Dyspnea on Exertion , Wheezing, Snoring, Stridor, Pain on Inspiration, Chest Congestion, Excessive Mucous Production, Change in Mucous Color, Pain with Coughing, Other - Gastrointestinal Gastrointestinal: As Per HPI. absent: Abdominal Pain - Genitourinary Genitourinary: absent: As Per HPI, Change in Urinary Stream, Difficulty Urinating, Dysuria, Flank Pain, Hematuria, Pyuria, Nocturia, Urinary Incontinence, Urinary Frequency, Urinary Hesitance, Urinary Urgency, Voiding Freq/Small Amts, Freq UTI, Hx Renal/Bladder Calculi, Hx /Renal Surgery, Bladder Distension, Other - Reproductive: Female Reproductive:Female: absent: As Per HPI, Amenorrhea, Amenorrhea/ Control, Currently Menstual, Cycle <21 Days, Cycle >35 Days, Cycle Variable, Menses 1-7 Days, Menses >/= 8 Days, Menses Variable, Cycle > 4 Weeks Between, No Menses for 6 Months, Heavy Menses, Light Menses, Normal Menses, Spotting Between Cycles , S/P Hysterectomy, Menopausal, Post Menopausal, Premenarche, Abnormal Vaginal Bleeding, Dysmenorrhea, Dyspareunia, Genital Lesions, Genital Pruritis, Pelvic Pain, Prolapse Symptoms, Sexual Dysfunction, Vaginal Discharge, Vaginal Dryness , Vaginal Odor, Vaginal Pruritis, Other - Menstruation Menstruation: absent: As Per HPI, Amenorrhea, Amenorrhea/ Control, Currently Menstual, Cycle <21 Days, Cycle >35 Days, Cycle Variable, Menses 1-7 Days, Menses >/= 8 Days, Menses Variable, Cycle > 4 Weeks Between, No Menses for 6 Months, Heavy Menses, Light Menses, Normal Menses, Spotting Between Cycles , S/P Hysterectomy, Menopausal, Post Menopausal, Premenarche, Abnormal Vaginal Bleeding, Dysmenorrhea, Other - Musculoskeletal Musculoskeletal: absent: As Per HPI, Abnormal Gait, Arthralgias, Atrophy, Back Pain, Deformity, Joint Swelling, Limited Range of Motion, Loss of Height, Muscle Cramps, Muscle Weakness, Myalgias, Neck Pain, Numbness, Radiating Pain into Limb, Stiffness, Tingling, Other - Integumentary Integumentary: absent: As Per HPI, Acne, Alopecia, Bleeding Lesions, Change in Hair, Change in Nails, Change in Pigmentation, Changing Lesions, Dry Skin, Erythema, Furuncle, Hirsutism, Lesions, New Lesions, Non-Healing Lesions, Photosensitivity, Pruritus, Rash, Skin Pain, Skin Ulcer, Sores, Striae, Swelling , Unusual Bruising, Wounds, Jaundice, Other - Neurological Neurological: absent: As Per HPI, Abnormal Gait, Abnormal Hearing, Abnormal Movements, Abnormal Speech, Behavioral Changes, Burning Sensations, Confusion, Convulsions, Disequilibrium, Dizziness, Numbness, Focal Weakness, Frequent Falls , Headaches, Lack of Coordination, Loss of Vision, Memory Loss, Paresthesias, Radicular Pain, Restless Legs, Sensory Deficit, Syncope, Tingling, Tremor, Vertigo, Weakness, Other Visual Disturbances, Other - Psychiatric Psychiatric: absent: As Per HPI, Abnormal Sleep Pattern, Anhedonia, Anxiety, Auditory Hallucinations, Behavioral Changes, Change in Appetite, Change in Libido, Confusion, Depression, Difficulty Concentrating, Hallucinations, Homicidal Ideation, Hopelessness, Irritability, Memory Loss, Mood Swings, Panic Attacks, Paranoia, Suicidal Ideation, Visual Hallucinations, Tactile Hallucinations, Other - Endocrine Endocrine: absent: As Per HPI, Change in Body Appearance, Change in Libido, Cold Intolorance, Deepening of Voice, Excessive Sweating, Fatigue, Flushing, Heat Intolorance, Increase in Ring/Shoe/Hat Size, Palpitations, Polydipsia, Polyphagia, Polyuria, Other - Hematologic/Lymphatic Hematologic: absent: As Per HPI, Easy Bleeding, Easy Bruising, Lymphadenopathy, Other Past Patient History - Past Medical History & Family History Past Medical History?: Yes - Past Social History Smoking Status: Never Smoked Alcohol: None Drugs: Denies Home Situation {Lives}: With Family - CARDIAC Hx Cardiac Disorders: Yes Hx Hypercholesterolemia: Yes Hx Hypertension: Yes - PULMONARY Hx Respiratory Disorders: Yes Hx Bronchitis: Yes - NEUROLOGICAL Hx Neurological Disorder: Yes Hx Transient Ischemic Attacks (TIA): Yes Other/Comment: Hypokalemic periodic paralysis - HEENT Hx HEENT Problems: Yes Other/Comment: Pt reports on and off episodes of losing half her visual obsorn after a TIA (loses vision on right side) - RENAL Hx Chronic Kidney Disease: No - ENDOCRINE/METABOLIC Hx Endocrine Disorders: Yes Hx Hypothyroidism: Yes - HEMATOLOGICAL/ONCOLOGICAL Hx Blood Disorders: No Hx Human Immunodeficiency Virus (HIV): No - INTEGUMENTARY Hx Dermatological Problems: No - MUSCULOSKELETAL/RHEUMATOLOGICAL Hx Musculoskeletal Disorders: No Hx Falls: No - GASTROINTESTINAL Hx Gastrointestinal Disorders: No - GENITOURINARY/GYNECOLOGICAL Hx Genitourinary Disorders: No - PSYCHIATRIC Hx Psychophysiologic Disorder: No Hx Substance Use: No - SURGICAL HISTORY Hx Surgeries: Yes Hx Appendectomy: Yes - ANESTHESIA Hx Anesthesia: Yes Hx Anesthesia Reactions: No Hx Malignant Hyperthermia: No Meds Home Medications: Home Medication List Medication Instructions Recorded Confirmed Type Metronidazole [Flagyl] 500 mg PO Q8H 10 Days #30 tablet 07/21/17 Rx Zolpidem [Ambien] 5 mg PO HS PRN tab 07/21/17 Rx Allergies/Adverse Reactions: Allergies Allergy/AdvReac Type Severity Reaction Status Date / Time codeine Allergy DIZZINESS Verified 07/15/17 17:36 fentanyl Allergy DIZZINESS Verified 07/15/17 15:00 morphine Allergy DIZZINESS Verified 07/15/17 15:00 moxifloxacin HCl Allergy RASH Verified 07/15/17 15:00 [From Avelox] shellfish derived Allergy ANAPHYLAXIS Verified 07/15/17 15:00 tramadol HCl [From Ultram] Allergy DIZZINESS Verified 07/15/17 15:00 - Medications Medications: Current Medications Acetaminophen (Tylenol 325mg Tab) 650 mg PO Q6 PRN PRN Reason: Pain, moderate (4-7) Aspirin (Ecotrin) 81 mg PO DAILY [facility] Last Admin: 07/21/17 09:26 Dose: 81 mg Enoxaparin Sodium (Lovenox) 40 mg SC DAILY [facility] PRN Reason: Protocol Last Admin: 07/21/17 09:27 Dose: 40 mg Home Med (Cyclosporine [Restasis]) 1 drop EACHEYE Q12H [facility] Metronidazole (Flagyl 500mg/100ml Ns) 100 mls @ 100 mls/hr IVPB Q8 [facility]I PRN Reason: Protocol Last Admin: 07/21/17 09:26 Dose: 100 mls/hr Vancomycin HCl 1 gm/ Sodium (Chloride) 250 mls @ 166.667 mls/hr IVPB Q12 [facility]I PRN Reason: Protocol Last Admin: 07/21/17 09:26 Dose: 166.667 mls/hr Piperacillin Sod/Tazobactam (Sod 3.375 gm/ Sodium Chloride) 100 mls @ 100 mls/ hr IVPB Q6 [facility]STI PRN Reason: Protocol Last Admin: 07/21/17 09:27 Dose: 100 mls/hr Levothyroxine Sodium (Synthroid) 75 mcg PO DAILY@0630 [facility] Last Admin: 07/21/17 06:59 Dose: 75 mcg Metoprolol Succinate (Toprol Xl) 25 mg PO QPM [facility] Last Admin: 07/20/17 18:11 Dose: 25 mg Ondansetron HCl (Zofran Inj) 4 mg IVP Q4 PRN PRN Reason: Nausea/Vomiting Last Admin: 07/20/17 10:10 Dose: 4 mg Vitamin A (Vitamin A&D) 1 applic TP Q8 PRN PRN Reason: Dry skin Last Admin: 07/20/17 12:48 Dose: 1 applic Zolpidem Tartrate (Ambien) 5 mg PO HS PRN PRN Reason: Insomnia Physical Exam - Constitutional Appears: Non-toxic, Chronically Ill - Head Exam Head Exam: NORMOCEPHALIC - Eye Exam Eye Exam: PERRL. absent: Scleral icterus - ENT Exam ENT Exam: Mucous Membranes Dry - Neck Exam Neck exam: Negative for: Lymphadenopathy - Respiratory Exam Respiratory Exam: Decreased Breath Sounds - Cardiovascular Exam Cardiovascular Exam: REGULAR RHYTHM - GI/Abdominal Exam GI & Abdominal Exam: Diminished Bowel Sounds, Soft. absent: Tenderness - Rectal Exam Rectal Exam: Deferred - Exam Exam: NORMAL INSPECTION - Extremities Exam Extremities exam: Negative for: pedal edema - Back Exam Back exam: absent: CVA tenderness (L), CVA tenderness (R) - Neurological Exam Neurological exam: Alert, CN II-XII Intact, Oriented x3, Reflexes Normal - Psychiatric Exam Psychiatric exam: Normal Mood - Skin Skin Exam: Dry Results - Vital Signs Recent Vital Signs: Last Vital Signs Temp 97.6 F 07/21/17 08:09 Pulse 54 L 07/21/17 08:09 Resp 18 07/21/17 08:09 BP 146/78 07/21/17 08:09 Pulse Ox 98 07/21/17 08:09 - Labs Result Diagrams: 07/20/17 06:15 07/20/17 06:15 Labs: Laboratory Results - last 24 hr 07/21/17 05:40 Vancomycin Trough 20.2 H Assessment & Plan (1) Colitis Status: Acute Priority: High (2) Hx-TIA (transient ischemic attack) Status: Acute (3) Hypothyroidism Status: Acute (4) HTN (hypertension) Status: Chronic Priority: Medium (5) Hx of seizure disorder Status: Chronic Priority: Medium (6) Abdominal pain, LLQ Status: Acute Priority: High - Assessment and Plan (Free Text) Assessment: non specific colitis c diff neg ok to d/c on PO follow up with GI for out pt colonoscopy
--- NOTE | 2017-07-21 14:37 | CP.PCM.DIS ---
<Rush,Sandra - Last Filed: 07/21/17 14:39> Provider - Provider Date of Admission: 07/19/17 19:32 Attending physician: Wolf Mario MD Time Spent in preparation of Discharge (in minutes): 30 Diagnosis - Discharge Diagnosis (1) Colitis Status: Acute Hospital Course - Lab Results Lab Results: Micro Results 07/19/17 20:00 Blood Blood Culture - Preliminary NO GROWTH AFTER 24 HOURS 07/19/17 19:40 Blood Blood Culture - Preliminary NO GROWTH AFTER 24 HOURS Most Recent Lab Values WBC 4.6 K/uL (4.8-10.8) L 07/20/17 06:15 RBC 3.79 Mil/uL (3.80-5.20) L 07/20/17 06:15 Hgb 11.0 g/dL (12.0-16.0) L 07/20/17 06:15 Hct 31.9 % (34.0-47.0) L 07/20/17 06:15 MCV 84.2 fl (81.0-99.0) 07/20/17 06:15 MCH 29.0 pg (27.0-31.0) 07/20/17 06:15 MCHC 34.4 g/dL (33.0-37.0) 07/20/17 06:15 RDW 13.9 % (11.5-14.5) 07/20/17 06:15 Plt Count 210 K/uL (130-400) 07/20/17 06:15 MPV 8.2 fl (7.2-11.7) 07/20/17 06:15 Neut % (Auto) 66.0 % (50.0-75.0) 07/20/17 06:15 Lymph % (Auto) 22.1 % (20.0-40.0) 07/20/17 06:15 Tompkins % (Auto) 7.6 % (0.0-10.0) 07/20/17 06:15 Eos % (Auto) 3.5 % (0.0-4.0) 07/20/17 06:15 Baso % (Auto) 0.8 % (0.0-2.0) 07/20/17 06:15 Neut # 3.1 K/uL (1.8-7.0) 07/20/17 06:15 Lymph # 1.0 K/uL (1.0-4.3) 07/20/17 06:15 Tompkins # 0.4 K/uL (0.0-0.8) 07/20/17 06:15 Eos # 0.2 K/uL (0.0-0.7) 07/20/17 06:15 Baso # 0.0 K/uL (0.0-0.2) 07/20/17 06:15 PT 12.3 Seconds (9.8-13.1) 07/19/17 19:40 INR 1.1 (0.9-1.2) 07/19/17 19:40 APTT 28.5 Seconds (25.6-37.1) 07/19/17 19:40 pO2 24 mm/Hg (30-55) L 07/19/17 19:50 VBG pH 7.42 (7.32-7.43) 07/19/17 19:50 VBG pCO2 55 mmHg (40-60) 07/19/17 19:50 VBG HCO3 30.7 mmol/L 07/19/17 19:50 VBG Total CO2 37.4 mmol/L (22-28) H 07/19/17 19:50 VBG O2 Sat (Calc) 42.8 % (40-65) 07/19/17 19:50 VBG Base Excess 9.3 mmol/L (0.0-2.0) H 07/19/17 19:50 VBG Potassium 4.8 mmol/L (3.6-5.2) 07/19/17 19:50 Sodium 140.0 mmol/L (132-148) 07/19/17 19:50 Chloride 107.0 mmol/L (98-107) 07/19/17 19:50 Glucose 88 mg/dL (65-105) 07/19/17 19:50 Lactate 1.2 mmol/L (0.7-2.1) 07/19/17 19:50 FiO2 23.0 % 07/19/17 19:50 Sodium 143 mmol/l (132-148) 07/20/17 06:15 Potassium 4.2 MMOL/L (3.6-5.0) 07/20/17 06:15 Chloride 106 mmol/L (98-107) 07/20/17 06:15 Carbon Dioxide 31 mmol/L (22-30) H 07/20/17 06:15 Anion Gap 10 (10-20) 07/20/17 06:15 BUN 8 mg/dl (7-17) 07/20/17 06:15 Creatinine 0.8 mg/dl (0.7-1.2) 07/20/17 06:15 Est GFR ( Amer) > 60 07/20/17 06:15 Est GFR (Non-Af Amer) > 60 07/20/17 06:15 Random Glucose 106 mg/dL (65-105) H 07/20/17 06:15 Calcium 8.6 mg/dL (8.4-10.2) 07/20/17 06:15 Phosphorus 3.5 mg/dl (2.5-4.5) 07/19/17 19:40 Magnesium 2.6 MG/DL (1.6-2.3) H 07/19/17 19:40 Total Bilirubin 0.5 mg/dl (0.2-1.3) 07/20/17 06:15 AST 32 U/L (14-36) 07/20/17 06:15 ALT 39 U/L (9-52) 07/20/17 06:15 Alkaline Phosphatase 66 U/L (38-126) 07/20/17 06:15 Total Protein 6.1 G/DL (6.3-8.2) L 07/20/17 06:15 Albumin 3.3 g/dL (3.5-5.0) L 07/20/17 06:15 Globulin 2.8 gm/dL (2.2-3.9) 07/20/17 06:15 Albumin/Globulin Ratio 1.2 (1.0-2.1) 07/20/17 06:15 Free T4 0.82 ng/dL (0.78-2.19) 07/20/17 06:15 TSH 3rd Generation 0.64 mIU/ML (0.46-4.68) 07/20/17 06:15 Venous Blood Potassium 4.8 mmol/L (3.6-5.2) 07/19/17 19:50 Urine Color Straw (YELLOW) 07/19/17 07:26 Urine Clarity Clear (Clear) 07/19/17 07:26 Urine pH 7.0 (5.0-8.0) 07/19/17 07:26 Ur Specific Montegut < 1.005 (1.003-1.030) 07/19/17 07:26 Urine Protein Negative mg/dL (NEGATIVE) 07/19/17 07:26 Urine Glucose (UA) Neg mg/dL (Normal) 07/19/17 07:26 Urine Ketones Negative mg/dL (NEGATIVE) 07/19/17 07:26 Urine Blood Negative (NEGATIVE) 07/19/17 07:26 Urine Nitrate Negative (NEGATIVE) 07/19/17 07:26 Urine Bilirubin Negative (NEGATIVE) 07/19/17 07:26 Urine Urobilinogen 0.2-1.0 mg/dL (0.2-1.0) 07/19/17 07:26 Ur Leukocyte Esterase Neg Damaris/uL (Negative) 07/19/17 07:26 Urine RBC (Auto) 1 /hpf (0-3) 07/19/17 07:26 Urine Microscopic WBC < 1 /hpf (0-5) 07/19/17 07:26 Ur Squamous Epith Cells < 1 /hpf (0-5) 07/19/17 07:26 Urine Bacteria Rare (<OCC) 07/19/17 07:26 Vancomycin Trough 20.2 ug/mL (5.0-10.0) H 07/21/17 05:40 - Hospital Course Hospital Course: Hospital Course: 76 y/o F, with multiple chronic disease who was in TCU for reconditioning secondary to hypokalemic periodic paralysis admitted for colitits and treated with IV antibiotics, vancomycin, zosyn and flagyl. Pt's abdominal pain resolved, she was afebrile, with no leukocytosis. Blood cultures and Cdiff negative She was evaluated by infectious disease and cleared for discharge on oral Flagyl. Discharge Medications: Flagyl 500mg PO for 10days Condition upon discharge: Fair Activity: Ambulating Discharge Instructions: Continue with oral antibiotics for 10 days. Follow up with PMD. Discharge Exam - Head Exam Head Exam: ATRAUMATIC, NORMAL INSPECTION - ENT Exam ENT Exam: Mucous Membranes Moist - Respiratory Exam Respiratory Exam: Clear to PA & Lateral, NORMAL BREATHING PATTERN. absent: Rales, Wheezes, Respiratory Distress - Cardiovascular Exam Cardiovascular Exam: REGULAR RHYTHM, +S1, +S2. absent: Systolic Murmur - GI/Abdominal Exam GI & Abdominal Exam: Soft. absent: Distended, Guarding, Hernia, Tenderness - Neurological Exam Neurological exam: Alert, Oriented x3 - Psychiatric Exam Psychiatric exam: Normal Affect Discharge Plan - Discharge Medications Prescriptions: Metronidazole [Flagyl] 500 mg PO Q8H 10 Days #30 tablet - Follow Up Plan Condition: FAIR Disposition: HOME/ ROUTINE Instructions: Acute Abdominal Pain (DC), Weakness (GEN) Additional Instructions: Patient was seen and examined by myself and the resident and I fully agree with the documentation as provided above. Patient is asymptomatic today with good improvement. Discharged home with PO flagyl as discussed with Dr. Forbes. Patient is to f/u with PMD and to take medications as directed. Return to ED for any worsening of symptoms. Cleared by physical therapy for discharge home rather than TCU. Referrals: Mohsen Gutierres MD, PhD [Staff Provider] - Jaspreet Forbes MD [Staff Provider] - Wolf Mario MD [Family Provider] - <Ernesto Addison - Last Filed: 07/21/17 17:14> Provider - Provider Date of Admission: 07/19/17 19:32 Attending physician: Wolf Mario MD Hospital Course - Lab Results Lab Results: Micro Results 07/19/17 20:00 Blood Blood Culture - Preliminary NO GROWTH AFTER 24 HOURS 07/19/17 19:40 Blood Blood Culture - Preliminary NO GROWTH AFTER 24 HOURS Most Recent Lab Values WBC 4.6 K/uL (4.8-10.8) L 07/20/17 06:15 RBC 3.79 Mil/uL (3.80-5.20) L 07/20/17 06:15 Hgb 11.0 g/dL (12.0-16.0) L 07/20/17 06:15 Hct 31.9 % (34.0-47.0) L 07/20/17 06:15 MCV 84.2 fl (81.0-99.0) 07/20/17 06:15 MCH 29.0 pg (27.0-31.0) 07/20/17 06:15 MCHC 34.4 g/dL (33.0-37.0) 07/20/17 06:15 RDW 13.9 % (11.5-14.5) 07/20/17 06:15 Plt Count 210 K/uL (130-400) 07/20/17 06:15 MPV 8.2 fl (7.2-11.7) 07/20/17 06:15 Neut % (Auto) 66.0 % (50.0-75.0) 07/20/17 06:15 Lymph % (Auto) 22.1 % (20.0-40.0) 07/20/17 06:15 Tompkins % (Auto) 7.6 % (0.0-10.0) 07/20/17 06:15 Eos % (Auto) 3.5 % (0.0-4.0) 07/20/17 06:15 Baso % (Auto) 0.8 % (0.0-2.0) 07/20/17 06:15 Neut # 3.1 K/uL (1.8-7.0) 07/20/17 06:15 Lymph # 1.0 K/uL (1.0-4.3) 07/20/17 06:15 Tompkins # 0.4 K/uL (0.0-0.8) 07/20/17 06:15 Eos # 0.2 K/uL (0.0-0.7) 07/20/17 06:15 Baso # 0.0 K/uL (0.0-0.2) 07/20/17 06:15 PT 12.3 Seconds (9.8-13.1) 07/19/17 19:40 INR 1.1 (0.9-1.2) 07/19/17 19:40 APTT 28.5 Seconds (25.6-37.1) 07/19/17 19:40 pO2 24 mm/Hg (30-55) L 07/19/17 19:50 VBG pH 7.42 (7.32-7.43) 07/19/17 19:50 VBG pCO2 55 mmHg (40-60) 07/19/17 19:50 VBG HCO3 30.7 mmol/L 07/19/17 19:50 VBG Total CO2 37.4 mmol/L (22-28) H 07/19/17 19:50 VBG O2 Sat (Calc) 42.8 % (40-65) 07/19/17 19:50 VBG Base Excess 9.3 mmol/L (0.0-2.0) H 07/19/17 19:50 VBG Potassium 4.8 mmol/L (3.6-5.2) 07/19/17 19:50 Sodium 140.0 mmol/L (132-148) 07/19/17 19:50 Chloride 107.0 mmol/L (98-107) 07/19/17 19:50 Glucose 88 mg/dL (65-105) 07/19/17 19:50 Lactate 1.2 mmol/L (0.7-2.1) 07/19/17 19:50 FiO2 23.0 % 07/19/17 19:50 Sodium 143 mmol/l (132-148) 07/20/17 06:15 Potassium 4.2 MMOL/L (3.6-5.0) 07/20/17 06:15 Chloride 106 mmol/L (98-107) 07/20/17 06:15 Carbon Dioxide 31 mmol/L (22-30) H 07/20/17 06:15 Anion Gap 10 (10-20) 07/20/17 06:15 BUN 8 mg/dl (7-17) 07/20/17 06:15 Creatinine 0.8 mg/dl (0.7-1.2) 07/20/17 06:15 Est GFR ( Amer) > 60 07/20/17 06:15 Est GFR (Non-Af Amer) > 60 07/20/17 06:15 Random Glucose 106 mg/dL (65-105) H 07/20/17 06:15 Calcium 8.6 mg/dL (8.4-10.2) 07/20/17 06:15 Phosphorus 3.5 mg/dl (2.5-4.5) 07/19/17 19:40 Magnesium 2.6 MG/DL (1.6-2.3) H 07/19/17 19:40 Total Bilirubin 0.5 mg/dl (0.2-1.3) 07/20/17 06:15 AST 32 U/L (14-36) 07/20/17 06:15 ALT 39 U/L (9-52) 07/20/17 06:15 Alkaline Phosphatase 66 U/L (38-126) 07/20/17 06:15 Total Protein 6.1 G/DL (6.3-8.2) L 07/20/17 06:15 Albumin 3.3 g/dL (3.5-5.0) L 07/20/17 06:15 Globulin 2.8 gm/dL (2.2-3.9) 07/20/17 06:15 Albumin/Globulin Ratio 1.2 (1.0-2.1) 07/20/17 06:15 Free T4 0.82 ng/dL (0.78-2.19) 07/20/17 06:15 TSH 3rd Generation 0.64 mIU/ML (0.46-4.68) 07/20/17 06:15 Venous Blood Potassium 4.8 mmol/L (3.6-5.2) 07/19/17 19:50 Urine Color Straw (YELLOW) 07/19/17 07:26 Urine Clarity Clear (Clear) 07/19/17 07:26 Urine pH 7.0 (5.0-8.0) 07/19/17 07:26 Ur Specific [place] < 1.005 (1.003-1.030) 07/19/17 07:26 Urine Protein Negative mg/dL (NEGATIVE) 07/19/17 07:26 Urine Glucose (UA) Neg mg/dL (Normal) 07/19/17 07:26 Urine Ketones Negative mg/dL (NEGATIVE) 07/19/17 07:26 Urine Blood Negative (NEGATIVE) 07/19/17 07:26 Urine Nitrate Negative (NEGATIVE) 07/19/17 07:26 Urine Bilirubin Negative (NEGATIVE) 07/19/17 07:26 Urine Urobilinogen 0.2-1.0 mg/dL (0.2-1.0) 07/19/17 07:26 Ur Leukocyte Esterase Neg Damaris/uL (Negative) 07/19/17 07:26 Urine RBC (Auto) 1 /hpf (0-3) 07/19/17 07:26 Urine Microscopic WBC < 1 /hpf (0-5) 07/19/17 07:26 Ur Squamous Epith Cells < 1 /hpf (0-5) 07/19/17 07:26 Urine Bacteria Rare (<OCC) 07/19/17 07:26 Vancomycin Trough 20.2 ug/mL (5.0-10.0) H 07/21/17 05:40
--- NOTE | 2017-07-21 16:00 | CARD ---
APPROVED REPORT EKG Measurement Heart [id number] <Conclusion> Normal sinus rhythm Normal ECG
== END 2017-07-21 16:00 | disposition home or self-care (01) | DRG 392 ==
LOC: H.ER 18:51 → H.ERHOLD 19:32 → H.MEDSURG1 21:13
PROVIDERS: ADMIT Internal Medicine Pulmonary Disease; ATTEND Internal Medicine Pulmonary Disease
DX: K52.9 Noninfective gastroenteritis and colitis, unspecified (principal); G72.3 Periodic paralysis; G40.909 Epilepsy, unspecified, not intractable, without status epilepticus; Z86.73 Personal history of transient ischemic attack (TIA), and cerebral infarction without residual deficits; E03.9 Hypothyroidism, unspecified; E78.00 Pure hypercholesterolemia, unspecified; I10 Essential (primary) hypertension; Z88.6 Allergy status to analgesic agent; Z88.3 Allergy status to other anti-infective agents; Z88.5 Allergy status to narcotic agent

== ENCOUNTER 2018-05-26 13:58 | Inpatient (IN) | payer MEDICARE, OTHER ==
--- NOTE | 2018-05-26 14:38 | ED PDOC ---
HPI: General Adult Time Seen by Provider: 05/26/18 14:23 Chief Complaint (Nursing): Weakness/Neurological Deficit Chief Complaint (Provider): Generalized weakness History Per: Patient, Family History/Exam Limitations: no limitations Additional Complaint(s): Daughter states pt c/o generalized weakness, nausea, back pain (chronic), nausea, sweaty and looked flush @ 1 PM today. Denies FIELDS, focal weakness, paresthesias, CP, SOB, vomiting, abdominal pain. Past Medical History Reviewed: Nursing Documentation, Vital Signs Vital Signs: Last Vital Signs Temp 97 F L 05/26/18 14:00 Pulse 78 05/26/18 14:00 Resp 18 05/26/18 14:00 BP 167/87 H 05/26/18 14:00 Pulse Ox 98 05/26/18 14:00 - Medical History PMH: Back Problems, Bronchitis, HTN, Hypercholesterolemia, Hypothyroidism, TIA Denies: HIV, Chronic Kidney Disease - Surgical History Surgical History: Appendectomy - Family History Family History: States: Unknown Family Hx - Living Arrangements Living Arrangements: With Family - Social History Current smoker - smoking cessation education provided: No Alcohol: None - Immunization History Hx Tetanus Toxoid Vaccination: No Hx Influenza Vaccination: No - Home Medications Home Medications: Ambulatory Orders Medication Instructions Recorded Levothyroxine [Synthroid] 75 mcg PO DAILY 07/12/17 Metoprolol Succinate XL [Toprol XL] 25 mg PO QPM 07/12/17 Zolpidem [Ambien] 10 mg PO HS PRN 07/12/17 cycloSPORINE [Restasis] 1 drop EACHEYE Q12H 07/12/17 Acetaminophen [Tylenol 325mg tab] 650 mg PO Q6 PRN tab 07/15/17 Aspirin [Ecotrin] 81 mg PO DAILY tabec 07/15/17 Metronidazole [Flagyl] 500 mg PO Q8H 10 Days #30 tablet 07/21/17 - Allergies Allergies/Adverse Reactions: Allergies Allergy/AdvReac Type Severity Reaction Status Date / Time codeine Allergy DIZZINESS Verified 05/26/18 14:00 fentanyl Allergy DIZZINESS Verified 05/26/18 14:00 morphine Allergy DIZZINESS Verified 05/26/18 14:00 moxifloxacin HCl Allergy RASH Verified 05/26/18 14:00 [From Avelox] shellfish derived Allergy ANAPHYLAXIS Verified 05/26/18 14:00 tramadol HCl [From Ultram] Allergy DIZZINESS Verified 05/26/18 14:00 Review of Systems Constitutional: Positive for: Sweats, Weakness. Negative for: Fever, Chills Eyes: Negative for: Vision Change Cardiovascular: Negative for: Chest Pain, Palpitations Respiratory: Negative for: Cough, Shortness of Breath Gastrointestinal: Positive for: Nausea. Negative for: Vomiting, Abdominal Pain, Diarrhea Genitourinary Female: Negative for: Dysuria, Hematuria Musculoskeletal: Positive for: Back Pain (Chronic) Skin: Negative for: Rash, Lesions Neurological: Negative for: Numbness, Incoordination, Change in Speech, Confusion, Seizures, Altered Mental Status, Headache, Dizziness Physical Exam - Reviewed Nursing Documentation Reviewed: Yes Vital Signs Reviewed: Yes - Physical Exam Appears: Positive for: Well, No Acute Distress Head Exam: Positive for: ATRAUMATIC, NORMAL INSPECTION Skin: Positive for: Normal Color, Warm, Dry Eye Exam: Positive for: Normal appearance, EOMI, PERRL Cardiovascular/Chest: Positive for: Regular Rate, Rhythm Respiratory: Positive for: Normal Breath Sounds. Negative for: Rales, Rhonchi, Wheezing Gastrointestinal/Abdominal: Positive for: Normal Exam, Bowel Sounds, Soft. Negative for: Tenderness Back: Positive for: Normal Inspection, R CVA Tenderness, Other (R side TTP). Negative for: L CVA Tenderness, Decreased ROM, Muscle Spasm Extremity: Positive for: Normal ROM Neurologic/Psych: Positive for: Alert, coil shaper II-XII, Oriented. Negative for: Motor/Sensory Deficits, Aphasia, Facial Droop - Laboratory Results Result Diagrams: 05/26/18 15:00 05/26/18 15:00 - ECG Interpretation Of ECG: NSR @ 77, no ST-T changes. O2 Sat by Pulse Oximetry: 98 Pulse Ox Interpretation: Normal Medical Decision Making Medical Decision Makin yo female with generalized weakness and nausea. - labs - EKG - CXR - CT head - CT abd/pelvis - IVF Accession No. : [id number] Patient Name / ID : OBDULIO BROWN / [id number] Exam Date : 05/26/2018 14:37:54 ( Approved ) Study Comment : Sex / Age : F / 77Y Creator : Maverick Spencer MD Dictator : Maverick Spencer MD Wallpaper Printer : Suction Plate Carrier Cleaner : Maverick Spencer MD Approver2 : Report Date : 05/26/2018 15:22:02 My Comment : Date of service: 05/26/2018 HISTORY: Generalized weakness COMPARISON: Chest radiograph dated 07/19/2017. FINDINGS: LUNGS: No active pulmonary disease. PLEURA: No significant pleural effusion identified, no pneumothorax apparent. CARDIOVASCULAR: Aorta atherosclerotic calcifications. Cardiomediastinal silhouette stably enlarged. OSSEOUS STRUCTURES: Unchanged. VISUALIZED UPPER ABDOMEN: Normal. OTHER FINDINGS: None. IMPRESSION: No active disease. Accession No. : [id number] Patient Name / ID : OBDULIO BROWN / [id number] Exam Date : 05/26/2018 15:50:08 ( Approved ) Study Comment : Sex / Age : F / 77Y Creator : Maverick Spencer MD Dictator : Maverick Spencer MD Wallpaper Printer : Suction Plate Carrier Cleaner : Maverick Spencer MD Approver2 : Report Date : 05/26/2018 16:09:26 My Comment : Date of service: 05/26/2018 PROCEDURE: CT HEAD WITHOUT CONTRAST. HISTORY: Generalized weakness COMPARISON: MR brain dated 07/13/2017. TECHNIQUE: Axial computed tomography images were obtained through the head/brain without intravenous contrast. Radiation dose: Total exam DLP = 687.0 mGy-cm. This CT exam was performed using one or more of the following dose reduction techniques: Automated exposure control, adjustment of the mA and/or kV according to patient size, and/or use of iterative reconstruction technique. FINDINGS: HEMORRHAGE: No intracranial hemorrhage. BRAIN: No mass effect or edema. Atrophy. Chronic microvascular ischemic changes. Questionable recommend cyst at the sella floor, unchanged. VENTRICLES: Unremarkable. No hydrocephalus. CALVARIUM: Unremarkable. PARANASAL SINUSES: Unremarkable as visualized. No significant inflammatory changes. MASTOID AIR CELLS: Unremarkable as visualized. No inflammatory changes. OTHER FINDINGS: None. IMPRESSION: No acute intracranial pathology. Age-related changes. No significant interval change. Accession No. : [id number] Patient Name / ID : OBDULIO BROWN / [id number] Exam Date : 05/26/2018 15:55:45 ( Approved ) Study Comment : Sex / Age : F / 77Y Creator : Maverick Spencer MD Dictator : Maverick Spencer MD Wallpaper Printer : Suction Plate Carrier Cleaner : Maverick Spencer MD Approver2 : Report Date : 05/26/2018 16:14:11 My Comment : Date of service: 05/26/2018 PROCEDURE: CT Abdomen and Pelvis without intravenous contrast HISTORY: R flank pain COMPARISON: CT scan of the abdomen pelvis dated 07/19/2017. TECHNIQUE: Contiguous images were obtained from the domes of the diaphragms to the upper thighs without the administration of intravenous contrast. Oral contrast was not administered. Radiation dose: Total exam DLP = 583.72 mGy-cm. This CT exam was performed using one or more of the following dose reduction techniques: Automated exposure control, adjustment of the mA and/or kV according to patient size, and/or use of iterative reconstruction technique. FINDINGS: LOWER THORAX: Cardiomegaly. Coronary arterial and valvular calcifications. No focal consolidation or pleural effusion LIVER: Stable too small to characterize 7 mm hypodensity in the left hepatic lobe. No gross lesion or ductal dilatation. GALLBLADDER AND BILE DUCTS: Calcified cholelithiasis without gallbladder wall thickening or pericholecystic fluid. PANCREAS: Unremarkable. No gross lesion or ductal dilatation. SPLEEN: Unremarkable. ADRENALS: Unremarkable. No mass. KIDNEYS AND URETERS: 1.7 cm left interpolar cyst. No hydronephrosis. No solid mass. VASCULATURE: Unremarkable. No aortic aneurysm. No aortic atherosclerotic calcification or mural plaque present. BOWEL: Unremarkable. No obstruction. Colonic diverticulosis. No gross mural thick ening. APPENDIX: Findings to suggest acute appendicitis. PERITONEUM: Tiny fat containing umbilical hernia. No free fluid. No free air. LYMPH NODES: Unremarkable. No enlarged lymph nodes. BLADDER: Unremarkable. REPRODUCTIVE: Unremarkable. BONES: No acute fracture. OTHER FINDINGS: None. IMPRESSION: No urolithiasis or evidence of recently passed genitourinary calculus. No acute abdominal pelvic pathology. Stable findings as above. Disposition - Clinical Impression Clinical Impression: Generalized muscle weakness, Near syncope - Patient ED Disposition Is Patient to be Admitted: Yes - Disposition Disposition Time: 18:38 Condition: STABLE Instructions: Weakness (ED) Forms: [email or web address] (Japanese) - Pt Status Changed To: Hospital Disposition Of: Inpatient - Admit Certification Admit to Inpatient:: After my assessment, the patient will require hospitalization for at least two midnights. This is because of the severity of symptoms shown, intensity of services needed, and/or the medical risk in this patient being treated as an outpatient. - POA Present On Arrival: None
[2018-05-26] MEDS ORDERED: Sodium Chloride 0.9% 1,000 ML IV STA (14:43)
[2018-05-26 15:19] LABS: BASO % 0.4 % (0.0-2.0); EOS # 0.1 K/uL (0.0-0.7); EOS % 1.3 % (0.0-4.0); HEMOGLOBIN 12.8 g/dL (12.0-16.0); LYMPH # 0.7 K/uL (1.0-4.3); LYMPH % 12.7 % (20.0-40.0); MEAN CELL VOLUME 84.8 fl (81.0-99.0); MEAN CORPUSCULAR HEMOGLOBIN 28.5 pg (27.0-31.0); MEAN CORPUSCULAR HGB CONC 33.6 g/dL (33.0-37.0); MEAN PLATELET VOLUME 7.9 fl (7.2-11.7); MONO # 0.3 K/uL (0.0-0.8); MONO % 5.7 % (0.0-10.0); NEUT # 4.3 K/uL (1.8-7.0); NEUT % 79.9 % (50.0-75.0); NRBC % 0.1 % (0.0-0.0); RBC 4.5 Mil/uL (3.80-5.20); RED CELL DISTRIBUTION WIDTH 14.7 % (11.5-14.5); WHITE BLOOD COUNT 5.4 K/uL (4.8-10.8)
[2018-05-26 15:23] LABS: INR 1.1; PROTHROMBIN TIME 12.1 Seconds (9.8-13.1)
--- NOTE | 2018-05-26 15:25 | RAD ---
Date of service: 05/26/2018 HISTORY: Generalized weakness COMPARISON: Chest radiograph dated 07/19/2017. FINDINGS: LUNGS: No active pulmonary disease. PLEURA: No significant pleural effusion identified, no pneumothorax apparent. CARDIOVASCULAR: Aorta atherosclerotic calcifications. Cardiomediastinal silhouette stably enlarged. OSSEOUS STRUCTURES: Unchanged. VISUALIZED UPPER ABDOMEN: Normal. OTHER FINDINGS: None. IMPRESSION: No active disease.
[2018-05-26 15:26] LABS: PARTIAL THROMBOPLASTIN TIME 31.7 Seconds (25.6-37.1)
[2018-05-26 15:29] LABS: ALB/GLOB RATIO 1.2 (1.0-2.1); ALBUMIN 4.1 g/dL (3.5-5.0); ALT/SGPT 39 U/L (9-52); AST/SGOT 44 U/L (14-36); BLOOD UREA NITROGEN 19 mg/dl (7-17); CALCIUM 9.2 mg/dL (8.4-10.2); GFR NON-AFRICAN AMERICAN > 60
--- NOTE | 2018-05-26 16:13 | CT ---
Date of service: 05/26/2018 PROCEDURE: CT HEAD WITHOUT CONTRAST. HISTORY: Generalized weakness COMPARISON: MR brain dated 07/13/2017. TECHNIQUE: Axial computed tomography images were obtained through the head/brain without intravenous contrast. Radiation dose: Total exam DLP = 687.0 mGy-cm. This CT exam was performed using one or more of the following dose reduction techniques: Automated exposure control, adjustment of the mA and/or kV according to patient size, and/or use of iterative reconstruction technique. FINDINGS: HEMORRHAGE: No intracranial hemorrhage. BRAIN: No mass effect or edema. Atrophy. Chronic microvascular ischemic changes. Questionable recommend cyst at the sella floor, unchanged. VENTRICLES: Unremarkable. No hydrocephalus. CALVARIUM: Unremarkable. PARANASAL SINUSES: Unremarkable as visualized. No significant inflammatory changes. MASTOID AIR CELLS: Unremarkable as visualized. No inflammatory changes. OTHER FINDINGS: None. IMPRESSION: No acute intracranial pathology. Age-related changes. No significant interval change.
--- NOTE | 2018-05-26 16:17 | CT ---
Date of service: 05/26/2018 PROCEDURE: CT Abdomen and Pelvis without intravenous contrast HISTORY: R flank pain COMPARISON: CT scan of the abdomen pelvis dated 07/19/2017. TECHNIQUE: Contiguous images were obtained from the domes of the diaphragms to the upper thighs without the administration of intravenous contrast. Oral contrast was not administered. Radiation dose: Total exam DLP = 583.72 mGy-cm. This CT exam was performed using one or more of the following dose reduction techniques: Automated exposure control, adjustment of the mA and/or kV according to patient size, and/or use of iterative reconstruction technique. FINDINGS: LOWER THORAX: Cardiomegaly. Coronary arterial and valvular calcifications. No focal consolidation or pleural effusion LIVER: Stable too small to characterize 7 mm hypodensity in the left hepatic lobe. No gross lesion or ductal dilatation. GALLBLADDER AND BILE DUCTS: Calcified cholelithiasis without gallbladder wall thickening or pericholecystic fluid. PANCREAS: Unremarkable. No gross lesion or ductal dilatation. SPLEEN: Unremarkable. ADRENALS: Unremarkable. No mass. KIDNEYS AND URETERS: 1.7 cm left interpolar cyst. No hydronephrosis. No solid mass. VASCULATURE: Unremarkable. No aortic aneurysm. No aortic atherosclerotic calcification or mural plaque present. BOWEL: Unremarkable. No obstruction. Colonic diverticulosis. No gross mural thickening. APPENDIX: Findings to suggest acute appendicitis. PERITONEUM: Tiny fat containing umbilical hernia. No free fluid. No free air. LYMPH NODES: Unremarkable. No enlarged lymph nodes. BLADDER: Unremarkable. REPRODUCTIVE: Unremarkable. BONES: No acute fracture. OTHER FINDINGS: None. IMPRESSION: No urolithiasis or evidence of recently passed genitourinary calculus. No acute abdominal pelvic pathology. Stable findings as above.
--- NOTE | 2018-05-26 16:41 | CARD ---
APPROVED REPORT Date of service: 05/26/2018 EKG Measurement Heart [id number] MD [id number] <Conclusion> Normal sinus rhythm Normal ECG
[2018-05-26 18:17] LABS: SQUAMOUS EPITHIAL < 1 /hpf (0-5); URINE BACTERIA RARE (<OCC); URINE BILIRUBIN NEGATIVE (NEGATIVE); URINE BLOOD NEGATIVE (NEGATIVE); URINE CLARITY CLOUDY (Clear); URINE COLOR YELLOW (YELLOW); URINE GLUCOSE (UA) NEG (Normal); URINE HYALINE CAST 0-2 /hpf (0-2); URINE LEUKOCYTE ESTERASE NEG Leu/uL (Negative); URINE PROTEIN NEGATIVE (NEGATIVE); URINE UROBILINOGEN 0.2-1.0 mg/dL (0.2-1.0)
[2018-05-26 18:18] LABS: URINE AMORPHOUS SEDIMENT SMALL /ul (<OCC)
[2018-05-26] MEDS ORDERED: Fluconazole 150 MG TAB PO STA (18:35)
[2018-05-26] MEDS ORDERED: Fluconazole 150 MG TAB PO ONE (19:01)
[2018-05-27] MEDS: Levothyroxine 50 MCG TAB PO SCH (06:41)
[2018-05-27 07:56] LABS: HEMOGLOBIN 12.3 g/dL (12.0-16.0); MEAN CELL VOLUME 84.6 fl (81.0-99.0); MEAN CORPUSCULAR HEMOGLOBIN 28.9 pg (27.0-31.0); MEAN CORPUSCULAR HGB CONC 34.1 g/dL (33.0-37.0); RBC 4.27 Mil/uL (3.80-5.20); RED CELL DISTRIBUTION WIDTH 14.5 % (11.5-14.5)
[2018-05-27 08:21] LABS: ALB/GLOB RATIO 1.1 (1.0-2.1); ALBUMIN 3.7 g/dL (3.5-5.0); ALT/SGPT 36 U/L (9-52); AST/SGOT 45 U/L (14-36); BLOOD UREA NITROGEN 18 mg/dl (7-17); CALCIUM 9.1 mg/dL (8.4-10.2); GFR NON-AFRICAN AMERICAN > 60; HDL CHOLESTEROL 51 MG/DL (30-70)
[2018-05-27 08:31] LABS: LDL CHOLESTEROL 169 mg/dL (0-129)
[2018-05-27 08:37] LABS: T4 7.58 ug/dl (5.5-11.0)
--- NOTE | 2018-05-27 11:08 | CP.PCM.CON ---
History of Present Illness - History of Present Illness History of Present Illness: 77 y/o female admitted with generalized fatigue, malaise Yesterday pt had a bout of dizziness taht lasted less than 1 minute after which she felt extreme weakness unable to get up There was no loss of concsiousness no Chest pain, palpitations has not had dizziness since that 1 episode EKG: normal PMH: Back Problems, Bronchitis, HTN, Hypercholesterolemia, Hypothyroidism, TIA Colitis gastroenteritis Review of Systems - Constitutional Constitutional: Fatigue, Weakness Past Patient History - Past Medical History & Family History Past Medical History?: Yes - Past Social History Smoking Status: Never Smoked - CARDIAC Hx Cardiac Disorders: No Hx Hypercholesterolemia: Yes Hx Hypertension: Yes - PULMONARY Hx Bronchitis: Yes - NEUROLOGICAL Hx Transient Ischemic Attacks (TIA): Yes - HEENT Hx HEENT Problems: Yes - RENAL Hx Chronic Kidney Disease: No - ENDOCRINE/METABOLIC Hx Hypothyroidism: Yes - HEMATOLOGICAL/ONCOLOGICAL Hx Human Immunodeficiency Virus (HIV): No - INTEGUMENTARY Hx Dermatological Problems: No - MUSCULOSKELETAL/RHEUMATOLOGICAL Hx Musculoskeletal Disorders: Yes Hx Back Pain: Yes Hx Falls: No - GASTROINTESTINAL Hx Gastrointestinal Disorders: No - GENITOURINARY/GYNECOLOGICAL Hx Genitourinary Disorders: No - PSYCHIATRIC Hx Psychophysiologic Disorder: No Hx Substance Use: No - SURGICAL HISTORY Hx Appendectomy: Yes - ANESTHESIA Hx Anesthesia: Yes Hx Anesthesia Reactions: No Hx Malignant Hyperthermia: No Meds Allergies/Adverse Reactions: Allergies Allergy/AdvReac Type Severity Reaction Status Date / Time codeine Allergy DIZZINESS Verified 05/26/18 14:00 fentanyl Allergy DIZZINESS Verified 05/26/18 14:00 morphine Allergy DIZZINESS Verified 05/26/18 14:00 moxifloxacin HCl Allergy RASH Verified 05/26/18 14:00 [From Avelox] shellfish derived Allergy ANAPHYLAXIS Verified 05/26/18 14:00 tramadol HCl [From Ultram] Allergy DIZZINESS Verified 05/26/18 14:00 - Medications Medications: Current Medications Levothyroxine Sodium (Synthroid) 50 mcg PO DAILY@0630 [facility] Last Admin: 05/27/18 06:41 Dose: 50 mcg Losartan Potassium (Cozaar) 50 mg PO BID [facility] Last Admin: 05/27/18 08:26 Dose: 50 mg Physical Exam - Constitutional Appears: No Acute Distress - Head Exam Head Exam: NORMAL INSPECTION - Eye Exam Eye Exam: Normal appearance - ENT Exam ENT Exam: Normal Exam - Neck Exam Neck exam: Positive for: Normal Inspection - Respiratory Exam Respiratory Exam: NORMAL BREATHING PATTERN - Cardiovascular Exam Cardiovascular Exam: REGULAR RHYTHM - GI/Abdominal Exam GI & Abdominal Exam: Normal Bowel Sounds Results - Vital Signs Recent Vital Signs: Last Vital Signs Temp 97.7 F 05/27/18 08:00 Pulse 68 05/27/18 09:00 Resp 18 05/27/18 08:00 BP 171/78 H 05/27/18 08:26 Pulse Ox 97 05/27/18 08:00 - Labs Result Diagrams: 05/27/18 06:00 05/27/18 06:00 Labs: Laboratory Results - last 24 hr 05/26/18 05/26/18 05/26/18 15:00 15:00 15:00 WBC 5.4 RBC 4.50 Hgb 12.8 Hct 38.2 MCV 84.8 MCH 28.5 MCHC 33.6 RDW 14.7 H Plt Count 238 MPV 7.9 Neut % (Auto) 79.9 H Lymph % (Auto) 12.7 L [place] % (Auto) 5.7 Eos % (Auto) 1.3 Baso % (Auto) 0.4 Neut # (Auto) 4.3 Lymph # (Auto) 0.7 L [place] # (Auto) 0.3 Eos # (Auto) 0.1 Baso # (Auto) 0.0 PT 12.1 INR 1.1 APTT 31.7 Sodium 143 Potassium 4.5 Chloride 106 Carbon Dioxide 30 Anion Gap 12 BUN 19 H Creatinine 0.8 Est GFR ( Amer) > 60 Est GFR (Non-Af Amer) > 60 Random Glucose 115 H Calcium 9.2 Phosphorus Magnesium Total Bilirubin 0.6 AST 44 H D ALT 39 Alkaline Phosphatase 86 Troponin I < 0.0120 Total Protein 7.6 Albumin 4.1 Globulin 3.5 Albumin/Globulin Ratio 1.2 Triglycerides Cholesterol LDL Cholesterol Direct HDL Cholesterol Thyroxine (T4) TSH 3rd Generation 2.34 Urine Color Urine Clarity Urine pH Ur Specific [place] Urine Protein Urine Glucose (UA) Urine Ketones Urine Blood Urine Nitrate Urine Bilirubin Urine Urobilinogen Ur Leukocyte Esterase Urine RBC (Auto) Urine Microscopic WBC Ur Squamous Epith Cells Amorphous Sediment Urine Bacteria Hyaline Casts Urine Yeast (Budding) 05/26/18 05/27/18 05/27/18 17:48 06:00 06:00 WBC 5.0 RBC 4.27 Hgb 12.3 Hct 36.1 MCV 84.6 MCH 28.9 MCHC 34.1 RDW 14.5 Plt Count 213 MPV Neut % (Auto) Lymph % (Auto) [place] % (Auto) Eos % (Auto) Baso % (Auto) Neut # (Auto) Lymph # (Auto) [place] # (Auto) Eos # (Auto) Baso # (Auto) PT INR APTT Sodium 142 Potassium 4.1 Chloride 108 H Carbon Dioxide 26 Anion Gap 12 BUN 18 H Creatinine 0.7 Est GFR ( Amer) > 60 Est GFR (Non-Af Amer) > 60 Random Glucose 96 Calcium 9.1 Phosphorus 3.6 Magnesium 2.5 H Total Bilirubin 0.6 AST 45 H ALT 36 Alkaline Phosphatase 74 Troponin I 0.0140 Total Protein 7.1 Albumin 3.7 Globulin 3.4 Albumin/Globulin Ratio 1.1 Triglycerides 86 D Cholesterol 246 H LDL Cholesterol Direct 169 H HDL Cholesterol 51 Thyroxine (T4) 7.58 TSH 3rd Generation Urine Color Yellow Urine Clarity Cloudy Urine pH 8.0 Ur Specific [place] 1.008 Urine Protein Negative Urine Glucose (UA) Neg Urine Ketones Negative Urine Blood Negative Urine Nitrate Negative Urine Bilirubin Negative Urine Urobilinogen 0.2-1.0 Ur Leukocyte Esterase Neg Urine RBC (Auto) 3 Urine Microscopic WBC 6 H Ur Squamous Epith Cells < 1 Amorphous Sediment Small Urine Bacteria Rare Hyaline Casts 0-2 Urine Yeast (Budding) Many H Assessment & Plan (1) Dizziness Assessment and Plan: Pt had 1 short bout of dizziness no LOC No Syncope asymptomatic now Cardiac acosta pt is stable Status: Resolved (2) Generalized muscle weakness Status: Acute (3) Hx-TIA (transient ischemic attack) Status: Acute (4) Hypokalemic periodic paralysis Status: Acute Priority: Medium (5) Weakness Status: Acute Priority: High (6) HTN (hypertension) Status: Chronic Priority: Medium
--- NOTE | 2018-05-27 16:04 | CP.PCM.HP ---
History of Present Illness - History of Present Illness History of Present Illness: CC: weakness. 77 y/o F, Pt with multiple chronic medical conditions, including Hx TIA, HTN, Chronic Back pain, Dyslipidemia, was brought via EMS to [facility] on 05/26/18 for evaluation of weaknesses on day NAILER HAND, increased on DOA with no relief, associated to dizziness, fatigue, one episode of near vertigo and nausea. Worsening symptoms: Unable to stand up, malaise, c/o of chronic back pain Aggravated factor: Standing, walking. Pt denied: Fever, chills, vomiting, diarrhea, abdominal pain, CP, palpitations, headache, fall, SOB, cough, sick contact. CXR: No active disease. Head CT: Normal. Abd/Pelv CT: No Urolithiasis, no evidence of recently passed genitourinary calculus. Present on Admission - Present on Admission Any Indicators Present on Admission: No Review of Systems - Constitutional Constitutional: Malaise, Weakness - EENT Eyes: Other (negative) Ears: Other (negative) Nose/Mouth/Throat: Other (negative) - Cardiovascular Cardiovascular: Other (negative) - Respiratory Respiratory: Other (negative) - Gastrointestinal Gastrointestinal: Nausea - Genitourinary Genitourinary: Other (negative) - Musculoskeletal Musculoskeletal: Arthralgias, Back Pain, Muscle Weakness - Integumentary Integumentary: Other (negative) - Neurological Neurological: Dizziness, Weakness - Psychiatric Psychiatric: Other (negative) - Endocrine Endocrine: Other (negative) - Hematologic/Lymphatic Hematologic: Other (negative) Past Patient History - Past Medical History & Family History Past Medical History?: Yes Pertinent Family History: Unknown - Past Social History Smoking Status: Never Smoked Alcohol: None Drugs: Denies Home Situation {Lives}: With Family - CARDIAC Hx Cardiac Disorders: Yes Hx Hypercholesterolemia: Yes Hx Hypertension: Yes - PULMONARY Hx Respiratory Disorders: Yes Hx Bronchitis: Yes - NEUROLOGICAL Hx Neurological Disorder: Yes Hx Transient Ischemic Attacks (TIA): Yes - HEENT Hx HEENT Problems: Yes Other/Comment: 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 - RENAL Hx Chronic Kidney Disease: No - ENDOCRINE/METABOLIC Hx Endocrine Disorders: Yes Hx Hypothyroidism: Yes - HEMATOLOGICAL/ONCOLOGICAL Hx Blood Disorders: No Hx Human Immunodeficiency Virus (HIV): No - INTEGUMENTARY Hx Dermatological Problems: No - MUSCULOSKELETAL/RHEUMATOLOGICAL Hx Musculoskeletal Disorders: Yes Hx Back Pain: Yes Hx Falls: No - GASTROINTESTINAL Hx Gastrointestinal Disorders: No - GENITOURINARY/GYNECOLOGICAL Hx Genitourinary Disorders: No - PSYCHIATRIC Hx Psychophysiologic Disorder: No Hx Substance Use: No - SURGICAL HISTORY Hx Surgeries: Yes Hx Appendectomy: Yes - ANESTHESIA Hx Anesthesia: Yes Hx Anesthesia Reactions: No Hx Malignant Hyperthermia: No Meds Allergies/Adverse Reactions: Allergies Allergy/AdvReac Type Severity Reaction Status Date / Time codeine Allergy DIZZINESS Verified 05/26/18 14:00 fentanyl Allergy DIZZINESS Verified 05/26/18 14:00 morphine Allergy DIZZINESS Verified 05/26/18 14:00 moxifloxacin HCl Allergy RASH Verified 05/26/18 14:00 [From Avelox] shellfish derived Allergy ANAPHYLAXIS Verified 05/26/18 14:00 tramadol HCl [From Ultram] Allergy DIZZINESS Verified 05/26/18 14:00 Physical Exam - Constitutional Appears: No Acute Distress - Head Exam Head Exam: NORMAL INSPECTION - Eye Exam Eye Exam: PERRL - ENT Exam ENT Exam: Normal Exam - Neck Exam Neck exam: Positive for: Normal Inspection - Respiratory Exam Respiratory Exam: Clear to Auscultation Bilateral - Cardiovascular Exam Cardiovascular Exam: REGULAR RHYTHM - GI/Abdominal Exam GI & Abdominal Exam: Normal Bowel Sounds, Soft - Extremities Exam Extremities exam: Positive for: normal inspection - Back Exam Back exam: tenderness (L-S) - Neurological Exam Neurological exam: Alert, CN II-XII Intact, Oriented x3 - Psychiatric Exam Psychiatric exam: Normal Affect, Normal Mood - Skin Skin Exam: Warm Results - Vital Signs Recent Vital Signs: Last Vital Signs Temp 97.7 F 05/27/18 13:00 Pulse 71 05/27/18 13:00 Resp 18 05/27/18 13:00 BP 158/87 H 05/27/18 13:00 Pulse Ox 97 05/27/18 13:00 reviewed [place] - Labs Result Diagrams: 05/27/18 06:00 05/27/18 06:00 Labs: Laboratory Results - last 24 hr 05/26/18 05/26/18 05/27/18 15:00 17:48 06:00 WBC 5.0 RBC 4.27 Hgb 12.3 Hct 36.1 MCV 84.6 MCH 28.9 MCHC 34.1 RDW 14.5 Plt Count 213 Sodium 143 Potassium 4.5 Chloride 106 Carbon Dioxide 30 Anion Gap 12 BUN 19 H Creatinine 0.8 Est GFR ( Amer) > 60 Est GFR (Non-Af Amer) > 60 Random Glucose 115 H Calcium 9.2 Phosphorus Magnesium Total Bilirubin 0.6 AST 44 H D ALT 39 Alkaline Phosphatase 86 Troponin I < 0.0120 Total Protein 7.6 Albumin 4.1 Globulin 3.5 Albumin/Globulin Ratio 1.2 Triglycerides Cholesterol LDL Cholesterol Direct HDL Cholesterol Thyroxine (T4) TSH 3rd Generation 2.34 Urine Color Yellow Urine Clarity Cloudy Urine pH 8.0 Ur Specific [place] 1.008 Urine Protein Negative Urine Glucose (UA) Neg Urine Ketones Negative Urine Blood Negative Urine Nitrate Negative Urine Bilirubin Negative Urine Urobilinogen 0.2-1.0 Ur Leukocyte Esterase Neg Urine RBC (Auto) 3 Urine Microscopic WBC 6 H Ur Squamous Epith Cells < 1 Amorphous Sediment Small Urine Bacteria Rare Hyaline Casts 0-2 Urine Yeast (Budding) Many H 05/27/18 05/27/18 06:00 12:30 WBC RBC Hgb Hct MCV MCH MCHC RDW Plt Count Sodium 142 Potassium 4.1 Chloride 108 H Carbon Dioxide 26 Anion Gap 12 BUN 18 H Creatinine 0.7 Est GFR ( Amer) > 60 Est GFR (Non-Af Amer) > 60 Random Glucose 96 Calcium 9.1 Phosphorus 3.6 Magnesium 2.5 H Total Bilirubin 0.6 AST 45 H ALT 36 Alkaline Phosphatase 74 Troponin I 0.0140 < 0.0120 Total Protein 7.1 Albumin 3.7 Globulin 3.4 Albumin/Globulin Ratio 1.1 Triglycerides 86 D Cholesterol 246 H LDL Cholesterol Direct 169 H HDL Cholesterol 51 Thyroxine (T4) 7.58 TSH 3rd Generation Urine Color Urine Clarity Urine pH Ur Specific [place] Urine Protein Urine Glucose (UA) Urine Ketones Urine Blood Urine Nitrate Urine Bilirubin Urine Urobilinogen Ur Leukocyte Esterase Urine RBC (Auto) Urine Microscopic WBC Ur Squamous Epith Cells Amorphous Sediment Urine Bacteria Hyaline Casts Urine Yeast (Budding) reviewed J.P. - Imaging and Cardiology CT scan - head Status: Report reviewed by me (J.P.) Chest x-ray Status: Report reviewed by me (J.P.) CT scan - abdomen Status: Report reviewed by me (J.P.) CT scan - pelvis Status: Report reviewed by me (J.P.) Assessment & Plan (1) Near syncope Status: Acute (2) Weakness Status: Acute Priority: High (3) HTN (hypertension) Status: Chronic Priority: High (4) Hx-TIA (transient ischemic attack) Status: Chronic (5) Dyslipidemia Status: Chronic Priority: High (6) Hypothyroidism Status: Chronic Priority: Medium - Assessment and Plan (Free Text) Plan: U C-S, EKG, EEG, continue Cozaar, Lipitor, Synthroid, Zofran and rest of Tx, PT eval, Cardiology consult appreciated, Neurology consult. - Date & Time Date: 05/27/18
--- NOTE | 2018-05-27 16:39 | US ---
Date of service: 05/27/2018 PROCEDURE: Duplex ultrasound of the carotid and vertebral arteries. HISTORY: near syncope COMPARISON: None available. TECHNIQUE: Grayscale and duplex Doppler evaluation of the cervical carotid and vertebral arteries were performed. The common carotid, carotid bifurcations and cervical ICA and proximal ECA were evaluated. The vertebral arteries were evaluated for gross patency and direction. FINDINGS: RIGHT CAROTID ARTERIES: Common Carotid Artery: Calcific plaque. Maximal flow velocity of 63.2 cm/s. Carotid Bifurcation: Calcific plaque Internal Carotid Artery:Calcific plaque. Maximal flow velocity of 84.0 cm/s. External Carotid Artery (proximal branches): Normal. Maximal flow velocity of 51.8 cm/s. ICA/CCA Ratio: 1.5 LEFT CAROTID ARTERIES: Common Carotid Artery: Calcific plaque. Maximal flow velocity of 65.0 cm/s. Carotid Bifurcation: Calcific plaque. Internal Carotid Artery:Calcific plaque. Maximal flow velocity of 72.4 cm/s. External Carotid Artery (proximal branches): Normal. Maximal flow velocity of 59.4 cm/s. ICA/CCA Ratio: 1.1 VERTEBRAL ARTERIES: Right Vertebral Artery: Patent. Antegrade flow. Left Vertebral Artery: Patent. Antegrade flow. OTHER FINDINGS: No atherosclerotic calcification present IMPRESSION: Per NASCET criteria, less than 50 percent stenosis of the internal carotid arteries, bilaterally.
--- NOTE | 2018-05-27 18:20 | CP.PCM.CON ---
History of Present Illness - History of Present Illness History of Present Illness: neurology consult dictated. Carotid doppler EEG normal. Thank you Dr. hernandez Neurology Past Patient History - Past Medical History & Family History Past Medical History?: Yes - Past Social History Smoking Status: Never Smoked - CARDIAC Hx Cardiac Disorders: No Hx Hypercholesterolemia: Yes Hx Hypertension: Yes - PULMONARY Hx Bronchitis: Yes - NEUROLOGICAL Hx Transient Ischemic Attacks (TIA): Yes - HEENT Hx HEENT Problems: Yes - RENAL Hx Chronic Kidney Disease: No - ENDOCRINE/METABOLIC Hx Hypothyroidism: Yes - HEMATOLOGICAL/ONCOLOGICAL Hx Human Immunodeficiency Virus (HIV): No - INTEGUMENTARY Hx Dermatological Problems: No - MUSCULOSKELETAL/RHEUMATOLOGICAL Hx Musculoskeletal Disorders: Yes Hx Back Pain: Yes Hx Falls: No - GASTROINTESTINAL Hx Gastrointestinal Disorders: No - GENITOURINARY/GYNECOLOGICAL Hx Genitourinary Disorders: No - PSYCHIATRIC Hx Psychophysiologic Disorder: No Hx Substance Use: No - SURGICAL HISTORY Hx Appendectomy: Yes - ANESTHESIA Hx Anesthesia: Yes Hx Anesthesia Reactions: No Hx Malignant Hyperthermia: No Meds Allergies/Adverse Reactions: Allergies Allergy/AdvReac Type Severity Reaction Status Date / Time codeine Allergy DIZZINESS Verified 05/26/18 14:00 fentanyl Allergy DIZZINESS Verified 05/26/18 14:00 morphine Allergy DIZZINESS Verified 05/26/18 14:00 moxifloxacin HCl Allergy RASH Verified 05/26/18 14:00 [From Avelox] shellfish derived Allergy ANAPHYLAXIS Verified 05/26/18 14:00 tramadol HCl [From Ultram] Allergy DIZZINESS Verified 05/26/18 14:00 - Medications Medications: Current Medications Levothyroxine Sodium (Synthroid) 50 mcg PO DAILY@0630 [facility] Last Admin: 05/27/18 06:41 Dose: 50 mcg Losartan Potassium (Cozaar) 50 mg PO BID [facility] Last Admin: 05/27/18 16:41 Dose: 50 mg Results - Vital Signs Recent Vital Signs: Last Vital Signs Temp 98.4 F 05/27/18 16:44 Pulse 80 05/27/18 16:44 Resp 20 05/27/18 16:44 BP 176/92 H 05/27/18 16:44 Pulse Ox 98 05/27/18 16:44 - Labs Result Diagrams: 05/27/18 06:00 05/27/18 06:00 Labs: Laboratory Results - last 24 hr 05/26/18 05/27/18 05/27/18 15:00 06:00 06:00 WBC 5.0 RBC 4.27 Hgb 12.3 Hct 36.1 MCV 84.6 MCH 28.9 MCHC 34.1 RDW 14.5 Plt Count 213 Sodium 143 142 Potassium 4.5 4.1 Chloride 106 108 H Carbon Dioxide 30 26 Anion Gap 12 12 BUN 19 H 18 H Creatinine 0.8 0.7 Est GFR ( Amer) > 60 > 60 Est GFR (Non-Af Amer) > 60 > 60 Random Glucose 115 H 96 Calcium 9.2 9.1 Phosphorus 3.6 Magnesium 2.5 H Total Bilirubin 0.6 0.6 AST 44 H D 45 H ALT 39 36 Alkaline Phosphatase 86 74 Troponin I < 0.0120 0.0140 Total Protein 7.6 7.1 Albumin 4.1 3.7 Globulin 3.5 3.4 Albumin/Globulin Ratio 1.2 1.1 Triglycerides 86 D Cholesterol 246 H LDL Cholesterol Direct 169 H HDL Cholesterol 51 Thyroxine (T4) 7.58 TSH 3rd Generation 2.34 05/27/18 12:30 WBC RBC Hgb Hct MCV MCH MCHC RDW Plt Count Sodium Potassium Chloride Carbon Dioxide Anion Gap BUN Creatinine Est GFR ( Amer) Est GFR (Non-Af Amer) Random Glucose Calcium Phosphorus Magnesium Total Bilirubin AST ALT Alkaline Phosphatase Troponin I < 0.0120 Total Protein Albumin Globulin Albumin/Globulin Ratio Triglycerides Cholesterol LDL Cholesterol Direct HDL Cholesterol Thyroxine (T4) TSH 3rd Generation
[2018-05-28] MEDS: Levothyroxine 50 MCG TAB PO SCH (06:05)
[2018-05-28] MEDS ORDERED: Gadodiamide 287 MG/ML VIAL (15ML) IV ONE (07:46)
--- NOTE | 2018-05-28 10:00 | PN ---
DATE: 05/27/2018 SUBJECTIVE: The patient is a 77-year-old woman who has a past medical history of bronchitis, hypertension, hypercholesterolemia, hypothyroidism, TIA, and lower back pain. She was admitted because she had a sudden episode of vertigo where she almost fell down. Before this episode, she was nauseous, was sweaty, and became diaphoretic. REVIEW OF SYSTEMS: Negative for headache, focal lesions, prior seizures, shortness of breath, vomiting, or abdominal pain. PHYSICAL EXAMINATION: GENERAL: On my examination this morning, the patient was well. She had no further dizziness and had no complaints whatsoever. NEUROLOGIC: Completely normal. There are no focal deficits. VITAL SIGNS: Completely normal except for her blood pressure which is 170/87. HOME MEDICATIONS: As follows: Synthroid, metoprolol, Ambien, Restasis, Tylenol, Ecotrin, and Flagyl. DRUG ALLERGIES: CODEINE, FENTANYL, MORPHINE, MOXIFLOXACIN, AND . LABORATORY DATA: Labs were normal except of BUN which is 18, creatinine which is 0.7, AST is 45, ALT is 36, cholesterol is 246, LDL is 169. Carotid artery ultrasound done, which showed no significant stenosis. Head CT was done, which was normal. IMPRESSION: This is a 77-year-old woman who had an isolated episode of syncope and now has normal neurological exam. PLAN: EEG. Our team will follow. Jessi Carrillo MD
[2018-05-28] MEDS ORDERED: Dextrose 5%/0.9% NS 1,000 ML IV SCH (10:45)
--- NOTE | 2018-05-28 11:23 | CARD ---
APPROVED REPORT Date of service: 05/28/2018 EXAM: Two-dimensional and M-mode echocardiogram with Doppler and color Doppler. Other Information Quality : GoodRhythm : NSR INDICATION Syncope 2D DIMENSIONS IVSd1.12 (0.7-1.1cm)LVDd4.27 (3.9-5.9cm) LVOT Diameter2.11 (1.8-2.4cm)PWd0.81 (0.7-1.1cm) IVSs1.00 (0.8-1.2cm)LVDs3.02 (2.5-4.0cm) FS (%) 29.3 %PWs1.31 (0.8-1.2cm) M-Mode DIMENSIONS Left Atrium (MM)3.06 (2.5-4.0cm)IVSd1.24 (0.7-1.1cm) Aortic Root2.90 (2.2-3.7cm)LVDd3.94 (4.0-5.6cm) Aortic Cusp Exc.1.57 (1.5-2.0cm)PWd1.05 (0.7-1.1cm) IVSs1.76 cmFS (%) 45 % LVDs2.15 (2.0-3.8cm)PWs1.57 cm Mitral Valve MV E Mlvwpkxn78.4cm/sMV DECEL [id number] A Ijuskqpu963.6cm/s MV PNE89haT/A ratio0.7MVA (PHT)3.14cm2 TDI Lateral E' Peak V7.50cm/sMedial E' Peak V11.24cm/sE/Lateral E'12.2 E/Medial E'8.1 LEFT VENTRICLE The left ventricle is normal size. There is normal left ventricular wall thickness. The left ventricular systolic function is normal. The estimated ejection fraction is 55-60% No regional wall motion abnormalities noted.. Transmitral Doppler flow pattern is Grade I-abnormal relaxation pattern. No left ventricle thrombus noted on this study. There is no ventricular septal defect visualized. There is no left ventricular aneurysm. There is no mass noted in the left ventricle. RIGHT VENTRICLE The right ventricle is normal size. There is normal right ventricular wall thickness. The right ventricular systolic function is normal. ATRIA The left atrium size is normal. The right atrium size is normal. The interatrial septum has a small atrial septal defect or PFO. Consider PERLITA if clinically indicated. AORTIC VALVE The aortic valve is normal in structure. No aortic regurgitation is present. There is no aortic valvular stenosis. There is no aortic valvular vegetation. MITRAL VALVE The mitral valve is normal in structure. There is no evidence of mitral valve prolapse. There is no mitral valve stenosis. There is trace mitral valve regurgitation noted. TRICUSPID VALVE The tricuspid valve is normal in structure. There is no tricuspid valve regurgitation noted. There is no tricuspid valve prolapse or vegetation. There is no tricuspid valve stenosis. PULMONIC VALVE The pulmonary valve is normal in structure. There is no pulmonic valvular regurgitation. There is no pulmonic valvular stenosis. GREAT VESSELS The aortic root is normal in size. The ascending aorta is normal in size. The pulmonary artery is normal. The IVC is normal in size and collapses >50% with inspiration. PERICARDIAL EFFUSION There is no pericardial effusion. There is no pleural effusion. <Conclusion> The estimated ejection fraction is 55-60% Transmitral Doppler flow pattern is Grade I-abnormal relaxation pattern. The left atrium size is normal. The interatrial septum has a small atrial septal defect or PFO. Consider PERLITA if clinically indicated. There is trace mitral valve regurgitation noted.
--- NOTE | 2018-05-28 11:50 | MRI ---
Date of service: 05/28/2018 PROCEDURE: MRI BRAIN WITH AND WITHOUT CONTRAST HISTORY: weakness, near syncope COMPARISON: None available. TECHNIQUE: Multiplanar, multisequence MR images of the brain were obtained with and without intravenous contrast enhancement. 12 cc of Omniscan was utilized for intravenous contrast. FINDINGS: HEMORRHAGE: None DWI: No evidence of an acute or early subacute infarction. BRAIN PARENCHYMA: Good corticomedullary differentiation is seen. Limited, proportional, diffuse expansion of the ventriculosulcal and cisternal spaces is appreciated with white matter lucency compatible with diffuse cerebral atrophy and chronic microangiopathy. No suspicious extra-axial fluid collection is identified and the midline brain anatomy appears grossly nonfocal as imaged. There is no mass effect throughout. Chronic lacunes are identified the inferior cerebellar hemispheres. Empty sella noted as well. ENHANCEMENT: No abnormal intracranial enhancement. VENTRICLES: Unremarkable. No hydrocephalus. CRANIUM: Unremarkable. ORBITS: Grossly unremarkable. PARANASAL SINUSES/MASTOIDS: Clear VASCULAR SYSTEM: Skull base flow voids intact. OTHER FINDINGS: None . IMPRESSION: Limited age-related neuro degenerative findings as well as small chronic lacunes at the bases of the bilateral cerebellar hemispheres. No abnormal intracranial enhancement.
[2018-05-28] MEDS: Sodium Chloride 0.9% 1,000 ML IV SCH (12:21)
--- NOTE | 2018-05-28 13:09 | CP.PCM.PCO ---
Assessment & Plan - Assessment and Plan (Free Text) Assessment: pt. seen and examined this am, complained of dizziness , weakess, nausea check orthostatic vs Flu A / B start ivf Echo results with possible Atrial septal defect vs. PFO d/w , recommended for possible PERLITA case discussed with pt. scheduled for PERLITA in am w/
--- NOTE | 2018-05-28 15:30 | CP.PCM.PN ---
Subjective - Date & Time of Evaluation Date of Evaluation: 05/28/18 - Subjective Subjective: F/U Near Syncope. Pt awake, c/o of dizziness, nausea and weakness, swelling and dry L lower lip. Objective - Vital Signs/Intake and Output Vital Signs (last 24 hours): Temp Pulse Resp BP Pulse Ox 97.5 F L 57 L 20 106/66 98 05/28/18 13:04 05/28/18 13:04 05/28/18 13:04 05/28/18 13:04 05/28/18 13:04 - Medications Medications: Current Medications Acyclovir (Zovirax 5% Oint) 1 applic EXT Q3 [facility] Atorvastatin Calcium (Lipitor) 20 mg PO HS KRISTI Sodium Chloride (Sodium Chloride 0.9%) 1,000 mls @ 70 mls/hr IV .[id number] [facility] Stop: 05/29/18 11:48 Last Admin: 05/28/18 12:21 Dose: 70 mls/hr Levothyroxine Sodium (Synthroid) 50 mcg PO DAILY@0630 [facility] Last Admin: 05/28/18 06:05 Dose: 50 mcg Losartan Potassium (Cozaar) 50 mg PO BID [facility] Last Admin: 05/28/18 09:30 Dose: 50 mg Ondansetron HCl (Zofran Inj) 4 mg IVP Q6 PRN PRN Reason: nause Last Admin: 05/28/18 10:20 Dose: 4 mg - Labs Labs: 05/27/18 06:00 05/27/18 06:00 PT 12.1 Seconds (9.8-13.1) 05/26/18 15:00 INR 1.1 05/26/18 15:00 APTT 31.7 Seconds (25.6-37.1) 05/26/18 15:00 - Constitutional Appears: No Acute Distress - Head Exam Head Exam: NORMAL INSPECTION - Eye Exam Eye Exam: PERRL - ENT Exam ENT Exam: Normal Exam - Neck Exam Neck Exam: Normal Inspection - Respiratory Exam Respiratory Exam: Clear to Ausculation Bilateral - Cardiovascular Exam Cardiovascular Exam: REGULAR RHYTHM - GI/Abdominal Exam GI & Abdominal Exam: Soft, Normal Bowel Sounds - Extremities Exam Extremities Exam: Normal Inspection - Back Exam Back Exam: tenderness (L-S) - Neurological Exam Neurological Exam: Alert, CN II-XII Intact, Oriented x3 - Psychiatric Exam Psychiatric exam: Normal Affect, Normal Mood - Skin Skin Exam: Warm Assessment and Plan (1) Near syncope Status: Acute (2) Septal defect Status: Acute (3) Weakness Status: Acute (4) HTN (hypertension) Status: Chronic (5) Hx-TIA (transient ischemic attack) Status: Chronic (6) Dyslipidemia Status: Chronic (7) Hypothyroidism Status: Chronic - Assessment and Plan (Free Text) Plan: Brain MRI shows: Age related degenerative findings. Echo shows: LVEF 55-60%, Atrial septal defects of PFO. F/U EEG, IGM, Herpes Simple 1/2, Nasal Flu A/B. stat IVF, Zorivax cream, continue rest of Tx. F/U Cardiology consult, possible PERLITA
--- NOTE | 2018-05-28 15:42 | CP.PCM.PCO ---
Physician Communication Note - Physician Communication Note Physician Communication Note: Informed of possible PFO vs. ASD on TTE. Agree that PERLITA is needed.
[2018-05-28] MEDS: Acyclovir 5% OINT 15 APPLIC/15 GM EXT SCH ×3 (17:43→21:35)
--- NOTE | 2018-05-28 17:44 | CP.PCM.CON ---
History of Present Illness - History of Present Illness History of Present Illness: Consultation for evaluation of dizziness / weakness with ? PFO for PERLITA HPI: Ms. Duarte is a 77-year-old female with past medical history of hypertension who presented to the ED on Monday due to right lower back pain upper and lower e xtremity weakness dizziness feeling that she felt nauseous and had a flushing of her face neck and hands she her back pain started on Monday but she thought it was due to her muscle spasm and she took Tylenol 2 times a day until Monday she denies of having any chest pain palpitations or any syncope episodes and any numbness or tingling in her upper and lower extremities bilaterally she also denies of having any radiation of pain Review of Systems - Review of Systems Systems not reviewed;Unavailable: Acuity of Condition - Constitutional Constitutional: As Per HPI - EENT Eyes: As Per HPI Ears: As Per HPI Nose/Mouth/Throat: As Per HPI - Breasts Breasts: As Per HPI - Cardiovascular Cardiovascular: As Per HPI - Respiratory Respiratory: As Per HPI - Gastrointestinal Gastrointestinal: As Per HPI - Genitourinary Genitourinary: As Per HPI - Reproductive: Female Reproductive:Female: As Per HPI - Menstruation Menstruation: As Per HPI - Musculoskeletal Musculoskeletal: As Per HPI - Integumentary Integumentary: As Per HPI - Neurological Neurological: As Per HPI - Psychiatric Psychiatric: As Per HPI - Endocrine Endocrine: As Per HPI - Hematologic/Lymphatic Hematologic: As Per HPI Past Patient History - Past Medical History & Family History Past Medical History?: Yes - Past Social History Smoking Status: Never Smoked Alcohol: None Drugs: Denies Home Situation {Lives}: With Family - CARDIAC Hx Cardiac Disorders: Yes Hx Hypercholesterolemia: Yes Hx Hypertension: Yes - PULMONARY Hx Respiratory Disorders: Yes Hx Bronchitis: Yes - NEUROLOGICAL Hx Neurological Disorder: Yes Hx Transient Ischemic Attacks (TIA): Yes - HEENT Hx HEENT Problems: Yes Other/Comment: 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 - RENAL Hx Chronic Kidney Disease: No - ENDOCRINE/METABOLIC Hx Endocrine Disorders: Yes Hx Hypothyroidism: Yes - HEMATOLOGICAL/ONCOLOGICAL Hx Blood Disorders: No Hx Human Immunodeficiency Virus (HIV): No - INTEGUMENTARY Hx Dermatological Problems: No - MUSCULOSKELETAL/RHEUMATOLOGICAL Hx Musculoskeletal Disorders: Yes Hx Back Pain: Yes Hx Falls: No - GASTROINTESTINAL Hx Gastrointestinal Disorders: No - GENITOURINARY/GYNECOLOGICAL Hx Genitourinary Disorders: No - PSYCHIATRIC Hx Psychophysiologic Disorder: No Hx Substance Use: No - SURGICAL HISTORY Hx Surgeries: Yes Hx Appendectomy: Yes - ANESTHESIA Hx Anesthesia: Yes Hx Anesthesia Reactions: No Hx Malignant Hyperthermia: No Meds Allergies/Adverse Reactions: Allergies Allergy/AdvReac Type Severity Reaction Status Date / Time codeine Allergy DIZZINESS Verified 05/26/18 14:00 fentanyl Allergy DIZZINESS Verified 05/26/18 14:00 morphine Allergy DIZZINESS Verified 05/26/18 14:00 moxifloxacin HCl Allergy RASH Verified 05/26/18 14:00 [From Avelox] shellfish derived Allergy ANAPHYLAXIS Verified 05/26/18 14:00 tramadol HCl [From Ultram] Allergy DIZZINESS Verified 05/26/18 14:00 - Medications Medications: Current Medications Acyclovir (Zovirax 5% Oint) 1 applic EXT Q3 [facility] Atorvastatin Calcium (Lipitor) 20 mg PO HS [facility] Sodium Chloride (Sodium Chloride 0.9%) 1,000 mls @ 70 mls/hr IV .[id number] [facility] Stop: 05/29/18 11:48 Last Admin: 05/28/18 12:21 Dose: 70 mls/hr Levothyroxine Sodium (Synthroid) 50 mcg PO DAILY@0630 [facility] Last Admin: 05/28/18 06:05 Dose: 50 mcg Losartan Potassium (Cozaar) 50 mg PO BID [facility] Last Admin: 05/28/18 09:30 Dose: 50 mg Ondansetron HCl (Zofran Inj) 4 mg IVP Q6 PRN PRN Reason: nause Last Admin: 05/28/18 10:20 Dose: 4 mg Physical Exam - Constitutional Appears: Well - Head Exam Head Exam: ATRAUMATIC, NORMAL INSPECTION, NORMOCEPHALIC - Eye Exam Eye Exam: EOMI, Normal appearance, PERRL Pupil Exam: NORMAL ACCOMODATION, PERRL - ENT Exam ENT Exam: Mucous Membranes Moist, Normal Exam - Neck Exam Neck exam: Positive for: Normal Inspection - Respiratory Exam Respiratory Exam: Clear to Auscultation Bilateral, NORMAL BREATHING PATTERN - Cardiovascular Exam Cardiovascular Exam: REGULAR RHYTHM, +S1, +S2, Systolic Murmur - GI/Abdominal Exam GI & Abdominal Exam: Normal Bowel Sounds, Soft. absent: Tenderness - Extremities Exam Extremities exam: Positive for: normal inspection - Back Exam Back exam: NORMAL INSPECTION - Neurological Exam Neurological exam: Alert, CN II-XII Intact, Normal Gait, Oriented x3, Reflexes Normal - Psychiatric Exam Psychiatric exam: Normal Affect, Normal Mood - Skin Skin Exam: Dry, Intact, Normal Color, Warm Results - Vital Signs Recent Vital Signs: Last Vital Signs Temp 98.1 F 05/28/18 16:40 Pulse 69 05/28/18 16:40 Resp 20 05/28/18 16:40 BP 114/71 05/28/18 16:40 Pulse Ox 95 05/28/18 16:40 - Labs Result Diagrams: 05/27/18 06:00 05/27/18 06:00 Labs: Laboratory Results - last 24 hr 05/26/18 05/28/18 05/28/18 14:15 11:50 13:33 POC Glucose (mg/dL) 136 H Vitamin B12 861 Influenza Typ A,B (EIA) Negative for flu a/b Assessment & Plan (1) Septal defect Assessment and Plan: plan for PERLITA in am at [facility] NPO p mn Status: Acute (2) Generalized muscle weakness Status: Acute (3) Near syncope Status: Acute (4) HTN (hypertension) Assessment and Plan: losartan Status: Chronic Priority: High
[2018-05-29] MEDS: Acyclovir 5% OINT 15 APPLIC/15 GM EXT SCH ×8 (00:31→21:47)
[2018-05-29] MEDS: Sodium Chloride 0.9% 1,000 ML IV SCH (02:57)
[2018-05-29] MEDS: Levothyroxine 50 MCG TAB PO SCH (05:55)
[2018-05-29 14:49] VITALS: BMI 22.3
[2018-05-30] MEDS: Acyclovir 5% OINT 15 APPLIC/15 GM EXT SCH ×4 (00:26→09:27)
[2018-05-30 00:29] VITALS: RESP 18
[2018-05-30] MEDS: Levothyroxine 50 MCG TAB PO SCH (06:03)
--- NOTE | 2018-05-30 11:40 | CP.PCM.PCO ---
Assessment & Plan - Assessment and Plan (Free Text) Assessment: pt. sitting up in bed, feels well, denies dizzines, weakness, h/a sob or cp s/p PERLITA negative pt. cleared for discharge to home today by and f/u with in 1 week med rec completed- e rx sent
[2018-05-30 12:02] VITALS: BP 117/70; PULSE 86; TEMP 97.6; O2SAT 97
--- NOTE | 2018-05-30 14:36 | CP.PCM.DIS ---
Provider - Provider Date of Admission: 05/26/18 18:38 Attending physician: Wolf Mario MD Consults: Cardiology-Dr. Arellano Neurology-Dr. Carrillo Time Spent in preparation of Discharge (in minutes): 35 Diagnosis - Discharge Diagnosis (1) Near syncope Status: Acute (2) Septal defect Status: Acute (3) Weakness Status: Acute Priority: High (4) HTN (hypertension) Status: Chronic Priority: High (5) Hx-TIA (transient ischemic attack) Status: Chronic (6) Dyslipidemia Status: Chronic Priority: High (7) Hypothyroidism Status: Chronic Priority: Medium Hospital Course - Lab Results Lab Results: Most Recent Lab Values WBC 5.0 K/uL (4.8-10.8) 05/27/18 06:00 RBC 4.27 Mil/uL (3.80-5.20) 05/27/18 06:00 Hgb 12.3 g/dL (12.0-16.0) 05/27/18 06:00 Hct 36.1 % (34.0-47.0) 05/27/18 06:00 MCV 84.6 fl (81.0-99.0) 05/27/18 06:00 MCH 28.9 pg (27.0-31.0) 05/27/18 06:00 MCHC 34.1 g/dL (33.0-37.0) 05/27/18 06:00 RDW 14.5 % (11.5-14.5) 05/27/18 06:00 Plt Count 213 K/uL (130-400) 05/27/18 06:00 MPV 7.9 fl (7.2-11.7) 05/26/18 15:00 Neut % (Auto) 79.9 % (50.0-75.0) H 05/26/18 15:00 Lymph % (Auto) 12.7 % (20.0-40.0) L 05/26/18 15:00 [place] % (Auto) 5.7 % (0.0-10.0) 05/26/18 15:00 Eos % (Auto) 1.3 % (0.0-4.0) 05/26/18 15:00 Baso % (Auto) 0.4 % (0.0-2.0) 05/26/18 15:00 Neut # (Auto) 4.3 K/uL (1.8-7.0) 05/26/18 15:00 Lymph # (Auto) 0.7 K/uL (1.0-4.3) L 05/26/18 15:00 [place] # (Auto) 0.3 K/uL (0.0-0.8) 05/26/18 15:00 Eos # (Auto) 0.1 K/uL (0.0-0.7) 05/26/18 15:00 Baso # (Auto) 0.0 K/uL (0.0-0.2) 05/26/18 15:00 PT 12.1 Seconds (9.8-13.1) 05/26/18 15:00 INR 1.1 05/26/18 15:00 APTT 31.7 Seconds (25.6-37.1) 05/26/18 15:00 Sodium 142 mmol/l (132-148) 05/27/18 06:00 Potassium 4.1 MMOL/L (3.6-5.0) 05/27/18 06:00 Chloride 108 mmol/L (98-107) H 05/27/18 06:00 Carbon Dioxide 26 mmol/L (22-30) 05/27/18 06:00 Anion Gap 12 (10-20) 05/27/18 06:00 BUN 18 mg/dl (7-17) H 05/27/18 06:00 Creatinine 0.7 mg/dl (0.7-1.2) 05/27/18 06:00 Est GFR ( Amer) > 60 05/27/18 06:00 Est GFR (Non-Af Amer) > 60 05/27/18 06:00 POC Glucose (mg/dL) 136 mg/dL (65-110) H 05/26/18 14:15 Random Glucose 96 mg/dL (65-105) 05/27/18 06:00 Calcium 9.1 mg/dL (8.4-10.2) 05/27/18 06:00 Phosphorus 3.6 mg/dl (2.5-4.5) 05/27/18 06:00 Magnesium 2.5 MG/DL (1.6-2.3) H 05/27/18 06:00 Total Bilirubin 0.6 mg/dl (0.2-1.3) 05/27/18 06:00 AST 45 U/L (14-36) H 05/27/18 06:00 ALT 36 U/L (9-52) 05/27/18 06:00 Alkaline Phosphatase 74 U/L (38-126) 05/27/18 06:00 Troponin I < 0.0120 ng/mL (0.00-0.120) 05/27/18 12:30 Total Protein 7.1 G/DL (6.3-8.2) 05/27/18 06:00 Albumin 3.7 g/dL (3.5-5.0) 05/27/18 06:00 Globulin 3.4 gm/dL (2.2-3.9) 05/27/18 06:00 Albumin/Globulin Ratio 1.1 (1.0-2.1) 05/27/18 06:00 Triglycerides 86 mg/DL (0-149) D 05/27/18 06:00 Cholesterol 246 mg/dL (0-199) H 05/27/18 06:00 LDL Cholesterol Direct 169 mg/dL (0-129) H 05/27/18 06:00 HDL Cholesterol 51 MG/DL (30-70) 05/27/18 06:00 Vitamin B12 861 pg/mL (239-931) 05/28/18 13:33 RBC Folate 841 ng/mL RBC (>280) 05/28/18 13:33 Thyroxine (T4) 7.58 ug/dl (5.5-11.0) 05/27/18 06:00 TSH 3rd Generation 2.34 mIU/ML (0.46-4.68) 05/26/18 15:00 Urine Color Yellow (YELLOW) 05/26/18 17:48 Urine Clarity Cloudy (Clear) 05/26/18 17:48 Urine pH 8.0 (5.0-8.0) 05/26/18 17:48 Ur Specific [place] 1.008 (1.003-1.030) 05/26/18 17:48 Urine Protein Negative mg/dL (NEGATIVE) 05/26/18 17:48 Urine Glucose (UA) Neg mg/dL (Normal) 05/26/18 17:48 Urine Ketones Negative mg/dL (NEGATIVE) 05/26/18 17:48 Urine Blood Negative (NEGATIVE) 05/26/18 17:48 Urine Nitrate Negative (NEGATIVE) 05/26/18 17:48 Urine Bilirubin Negative (NEGATIVE) 05/26/18 17:48 Urine Urobilinogen 0.2-1.0 mg/dL (0.2-1.0) 05/26/18 17:48 Ur Leukocyte Esterase Neg [place]/uL (Negative) 05/26/18 17:48 Urine RBC (Auto) 3 /hpf (0-3) 05/26/18 17:48 Urine Microscopic WBC 6 /hpf (0-5) H 05/26/18 17:48 Ur Squamous Epith Cells < 1 /hpf (0-5) 05/26/18 17:48 Amorphous Sediment Small /ul (<OCC) 05/26/18 17:48 Urine Bacteria Rare (<OCC) 05/26/18 17:48 Hyaline Casts 0-2 /hpf (0-2) 05/26/18 17:48 Urine Yeast (Budding) Many /hpf (NEGATIVE) H 05/26/18 17:48 RPR Nonreactive (NONREACTIVE) 05/28/18 13:33 Influenza Typ A,B (EIA) Negative for flu a/b (NEGATIVE) 05/28/18 11:50 - Date & Time of H&P Date of H&P: 05/27/18 Discharge Exam - Head Exam Head Exam: ATRAUMATIC, NORMAL INSPECTION, NORMOCEPHALIC - Eye Exam Eye Exam: PERRL - ENT Exam ENT Exam: Normal Exam - Neck Exam Neck exam: Normal Inspection - Respiratory Exam Respiratory Exam: NORMAL BREATHING PATTERN - Cardiovascular Exam Cardiovascular Exam: REGULAR RHYTHM - GI/Abdominal Exam GI & Abdominal Exam: Normal Bowel Sounds, Soft - Extremities Exam Extremities exam: normal inspection - Back Exam Back exam: tenderness (L-S) - Neurological Exam Neurological exam: Alert, CN II-XII Intact, Oriented x3 - Psychiatric Exam Psychiatric exam: Normal Affect, Normal Mood - Skin Skin Exam: Warm Discharge Plan - Discharge Medications Prescriptions: Acyclovir 5% [Zovirax 5% Oint] 1 applic EXT Q3 #1 tube - Follow Up Plan Condition: STABLE Disposition: HOME/ ROUTINE Patient education suggested?: Yes Instructions: Near Fainting (DC), Weakness (ED) Additional Instructions: follow up with in 1 week Referrals: Wolf Mario MD [Family Provider] -
--- NOTE | 2018-06-01 13:36 | PCM.EEG ---
Electroencephalogram Report -Electroencephalogram Report Procedure Date: 05/27/18 Condition of Recording: Awake, Drowsy Interpretation: There is a 9hz posterior dominant rhythm that is reactive symmetric and attenuates with eye opening. There is a normal amount of fronta; beta. There is no normal sleep noted. Impression: This is a normal awake and drowsy EEg. Conclusion: Normal EEG ( Awake, Drowsy, and Asleep) [facility]
== END 2018-05-30 14:17 | disposition home or self-care (01) | DRG 312 ==
LOC: H.ER 13:58 → H.ERHOLD 18:38 → H.TEL 22:19
PROVIDERS: ADMIT Internal Medicine Pulmonary Disease; ATTEND Internal Medicine Pulmonary Disease
PROC: B246ZZ4 Ultrasonography of Right and Left Heart, Transesophageal (ICD-10-PCS; principal; 2018-05-29)
DX: R55 Syncope and collapse (principal); Q21.1 Atrial septal defect; I10 Essential (primary) hypertension; E03.9 Hypothyroidism, unspecified; G72.3 Periodic paralysis; G89.29 Other chronic pain; M54.5 Low back pain; I07.1 Rheumatic tricuspid insufficiency; E78.5 Hyperlipidemia, unspecified; E78.00 Pure hypercholesterolemia, unspecified; Z86.73 Personal history of transient ischemic attack (TIA), and cerebral infarction without residual deficits; Z79.82 Long term (current) use of aspirin; Z88.5 Allergy status to narcotic agent; Z88.6 Allergy status to analgesic agent; Z91.013 Allergy to seafood